=== PATIENT | female | born 1940 | race Caucasian/White ===

== ENCOUNTER 2020-02-17 16:18 | Emergency (ER) | payer MEDICARE, OTHER, SELFPAY ==
[2020-02-17 16:26] VITALS: BP 184/83; PULSE 67; RESP 17; TEMP 36.3; O2SAT 97; BMI 34.6
--- NOTE | 2020-02-17 16:27 | XRR_ITS ---
PROCEDURE INFORMATION: Exam: XR Chest, 1 View Exam date and time: 02/17/2020 4:44 PM Age: 79 years old Clinical indication: Chest pain; Type not specified; Additional info: Cp TECHNIQUE: Imaging protocol: XR of the chest Views: 1 view. COMPARISON: No relevant prior studies available. FINDINGS: Lungs: There is some mild scarring or subsegmental atelectasis at the right lung base and in the left mid lung. Pleural space: Unremarkable. No pleural effusion. No pneumothorax. Heart/Mediastinum: There is mild cardiomegaly. Sternotomy wires and mediastinal surgical clips are present, consistent with previous coronary arterial bypass grafting. Bones/joints: Unremarkable. XR/XR chest 1V portable [id number] IMPRESSION: 1. Mild cardiomegaly 2. Minimal atelectasis or scarring. 3. No acute infiltrate
--- NOTE | 2020-02-17 16:28 | ECG_ITS ---
[facility] Test Date: 2020-02-17 Pat Name: Indira Guzman Department: Room: Gender: Female Fx Artist: : 1940 Requested By: Vicki De La Garza Order Number: [id number] Lerma MD: Francia Bloom M.D. Measurements Intervals [place] Rate: 63 P: 44 [place]: 159 QRS: 11 QRSD: 127 T: 114 QT: 430 QTc: 443 Interpretive Statements SINUS RHYTHM POSSIBLE LEFT ATRIAL ENLARGEMENT [-0.1mV P WAVE IN V1/V2] LEFT BUNDLE BRANCH BLOCK [120+ ms QRS DURATION, 80+ ms Q/S IN V1/V2, 85+ ms R IN I/aVL/V5/V6] Compared to ECG 10/02/2018 04:26:22 No significant changes Electronically Signed On 02-17-2020 18:25:11 CDT by Francia Bloom M.D. [id number]
[2020-02-17] MEDS: aspirin 325 mg Tablet PO (16:52)
[2020-02-17] MEDS: nitroglycerin 0.4 mg sublingual Tablet SUBLINGUAL (17:00)
[2020-02-17 17:03] LABS: Basophils # 0.1 10^3/uL (0.0-0.1); Basophils % 0.8 %; Eosinophils # 0.2 10^3/uL (0.0-0.8); Eosinophils % 2.4 %; Hematocrit 42.1 % (37.0-47.0); Hemoglobin 13.6 g/dL (11.5-15.3); Lymphocytes # 2.1 10^3/uL (0.8-4.8); Lymphocytes % 24.8 %; Mean Corpuscular HGB Conc 32.3 g/dL (30.0-36.0); Mean Corpuscular Hemoglobin 30.8 pg (28.0-34.0); Mean Corpuscular Volume 95.2 fL (81-99); Mean Platelet Volume 10.1 fL (7.4-10.4); Monocytes # 0.7 10^3/uL (0.2-0.9); Monocytes % 8.1 %; Neutrophils # 5.3 10^3/uL (1.8-7.7); Neutrophils % 63.5 %; Nucleated Red Blood Cells % 0 %; Platelet Count 224 10^3/cmm (130-400); Red Blood Count 4.42 10^6/uL (4.1-5.3); Red Cell Distribution Width 13.3 % (12.1-15.1); White Blood Count 8.3 10^3/uL (4.0-10.0)
[2020-02-17 17:12] LABS: INR 0.92 (0.8-1.2)
[2020-02-17 17:23] LABS: Alanine Aminotransferase 10 U/L (0-33); Albumin Level 4.8 g/dL (3.5-5.2); Alkaline Phosphatase 76 IU/L (35-105); Anion Gap 17.3 (5-19); Aspartate Amino Transferase 20 U/L (0-32); Blood Urea Nitrogen 17 mg/dL (8-23); Calcium 10.3 mg/dL (8.5-10.5); Carbon Dioxide 24 mmol/L (22-29); Chloride 102 mmol/L (98-107); Globulin 2.2 g/dL (1.3-4.6); Glucose 103 mg/dL (65-115); Lipase 33 U/L (13-60); Magnesium 1.9 mg/dL (1.7-2.3); Osmolality Calculated 285 mOsm/kg (285-295); Potassium 4.3 mmol/L (3.5-5.1); Sodium 139 mmol/L (136-145); Total Bilirubin 0.8 mg/dL (0.15-1.2)
[2020-02-17 17:24] LABS: Troponin(5th) Baseline 7 ng/L (0-10)
[2020-02-17 17:56] LABS: Bilirubin Urine Neg (NEGATIVE); Blood Urine Neg (Negative); Glucose Urine UA Norm (Normal); Ketones Urine Negative (Negative); Leukocyte Esterase Urine Negative (Negative); Nitrate Urine Negative (Negative); Protein Urine Neg (Negative); Specific Gravity, Urine 1.005 (1.005-1.030); Urine Appearance Clear (CLEAR); Urine Color Yellow (Yellow); Urobilinogen Urine Neg (Negative); pH Urine 7 (5-7)
[2020-02-17 17:57] LABS: Add Urine Culture? No; Bacteria Urine TRACE; Squamous Epithelial Cell Urine 0-4 (0-5)
--- NOTE | 2020-02-17 17:57 | ED_ITS ---
HPI - Chest Pain General: Chief Complaint: Chest Pain Stated Complaint: chest heaviness Time Seen by Provider: 02/17/20 16:26 Source: patient and family Mode of arrival: ambulatory Limitations: no limitations History of Present Illness: HPI narrative: Ms. Guzman is a nice 79-year-old female who comes in complaining of palpitations and neck discomfort. She states her pain is been at its worst a 5 or 6 out of 10 and currently she is a 4 out of 10. Patient states that she has having palpitations that make her feel dizzy. She does not check her heart rate with this to see how fast her heart rate is with the palpitations. The patient has not been syncopal or near syncopal. Patient states that she feels very anxious and she thinks this is all just due to anxiety. She denies any chest pain only the right-sided neck pain. Denies any nausea or vomiting, diaphoresis, shortness of breath, radiation of her pain or any other symptoms. Her symptoms are intermittent lasting a very short amount of time. Associated symptoms: Reports palpitations; Deny abdominal pain, diaphoresis, dyspnea, fever(s), nausea or vomiting Review of Systems Const: Denies: fever(s), chills, body aches, fatigue, malaise or diaphoresis Eyes: Denies: change in vision, blurry vision, blind spots, photophobia, eye discharge or eye redness ENMT: Denies: throat pain, odynophagia, hoarseness, swelling of lips/tongue, oral sores, ear or mastoid pain, ear discharge, change in hearing or nasal discharge Card: Reports: palpitations; Denies: chest pain, irregular heart rhythm, edema, lightheadedness, pre-syncope, dyspnea on exertion or orthopnea Resp: Denies: dyspnea, productive cough, non-productive cough, wheezing, hemoptysis or chest congestion GI: Denies: abdominal pain, nausea, vomiting, hematemesis, coffee ground emesis, heartburn, diarrhea, constipation, GI cramping, hematochezia or melena : Denies: flank pain, dysuria, urinary frequency, urinary urgency or hematuria Musc: Reports: neck pain; Denies: back pain, extremity pain, extremity swelling, joint pain, joint swelling, joint redness, joint warmth or joint stiffness Skin/Breast: Denies: rash, pruritus, erythema, skin tenderness or jaundice Neuro: Denies: headache(s), numbness in extremities, weakness in extremities, sensory changes, lack of coordination, difficulty walking, dizziness, vertigo, confusion, Slurred speech present or seizure-like activity Psych: Reports: anxiety Raghu/Lymph: Denies: easy bruising, easy bleeding, petechiae, purpura or enlarged lymph nodes All/Imm: Denies: urticaria, throat swelling, tongue swelling, facial swelling or acute wheezing PFSH ED PFSH: Medical History Anxiety Congestive heart failure Coronary artery disease DM type 2 (diabetes mellitus, type 2) GERD (gastroesophageal reflux disease) Gout Hyperlipidemia Hypertension Hypothyroidism Surgical History Hx of CABG Social History Smoking and tobacco status: never smoked Physical Exam Const: COMMON NORMALS: no acute distress, patient oriented x3, no limitations, healthy appearing and well nourished GENERAL APPEARANCE: cooperative, well kempt and well developed HENMT: COMMON NORMALS: normocephalic, atraumatic, external ears normal, EAC's normal and Normal external nose present HEAD & SCALP: normal to inspection, normocephalic and atraumatic FACE & SINUS: normal facial exam and face symmetric NOSE: Normal external nose present and Normal nares present EXTERNAL EAR: Yes external ears normal EXTERNAL AUDITORY CANAL: EAC's normal MOUTH: Normal oral and palatal mucosa present, lip normal and tongue normal Eye: COMMON NORMALS: Equal, round and reactive pupils present and conjunctivae normal GENERAL EYE: appearance normal, both eyes and all related structures ALIGNMENT: Yes alignment normal PERIORBITAL: periorbital findings normal EYELID: eyelids normal CONJUNCTIVA: Yes conjunctivae normal SCLERA: sclerae normal PUPIL: Yes Equal, round and reactive pupils present Neck/C-Spine: COMMON NORMALS: full ROM, no lymphadenopathy, supple, no meningeal signs and no JVD GENERAL: Yes normal visual inspection and Yes trachea midline Chest: COMMONS NORMALS: normal inspection of the chest and normal palpation of entire chest wall Resp: COMMON NORMALS: normal respiratory effort, No retractions and No use of accessory muscles EFFORT & INSPECTION: Yes able to speak in complete sentences and Yes symmetric chest movement AUSCULTATION: no crackles, no rales, no rhonchi and no wheezes Cardio: COMMON NORMALS: no JVD, regular rate, regular rhythm, S1 normal heart sound present and S2 normal heart sound present RATE: regular rate RHYTHM: regular rhythm HEART SOUNDS: S1 normal heart sound present, S2 normal heart sound present, no click, no gallops, no murmurs, no rubs and abnormal split S2 GI: COMMON NORMALS: Soft to palpation and No hepatosplenomegaly present PALPATION: Yes Soft to palpation, No Tenderness to palpation present (GI), No Guarding due to palpation present (GI), No Rigid due to palpation, Yes No hep atosplenomegaly present, No Hernia present, No Palpable mass present and No Pulsatile mass present : COMMON NORMALS: Yes no CVA tenderness BLADDER/KIDNEY EXAM: Yes no CVA tenderness EXTERNAL FEMALE EXAM: No Hernia present Back/Pelvis: COMMON NORMALS: no CVA tenderness, thoracic and lumbar spine normal to inspection, no thoracic nor lumbar tenderness and thoraco-lumbar ROM normal Extremity: COMMON NORMALS: normal to inspection, full ROM, capillary refill normal, no joint enlargement, no clubbing, cyanosis or edema and no calf tenderness Neuro: COMMON NORMALS: patient oriented x3, CN's II-XII intact bilaterally, moves all extremities, no focal motor deficits and no sensory deficits noted MENINGEAL SIGNS: Yes no meningeal signs SPEECH: speech normal Psych: COMMON NORMALS: mental status grossly normal, Normal thought process present, cooperative, normal affect, speech normal and activity/motor behavior normal APPEARANCE: Yes well kempt SPEECH: Yes normal speech THOUGHT PROCESS: Normal thought process present Skin: COMMON NORMALS: no rashes or lesions noted, turgor normal, no jaundice, no petechiae and no mottling GENERAL SKIN EXAM: no rashes or lesions noted and turgor normal Course 2 Vital Signs: Vital signs: Vital Signs Temperature 97.4 F L 02/17/20 16:26 Pulse Rate 67 02/17/20 16:26 Respiratory Rate 17 02/17/20 16:26 Blood Pressure 184/83 02/17/20 16:26 Pulse Oximetry 97 02/17/20 16:26 MDM - Chest Pain MDM Narrative: Medical decision making narrative: Mrs. Brady is a nice 79-year-old female who comes in complaining of primarily right neck discomfort and palpitations. She has described palpitations here but no evidence of any arrhythmia is seen on her surveillance system monitor. Her right neck pain could be an anginal equivalent the patient does not appear to have had any significant cardiac work-up since a negative stress test in 2013. I have recommended and offered to admit her to the hospital for stress testing but she declines. She thinks her symptoms are secondary to anxiety. I have informed her that although this is possible it would be best to perform a stress test after a formal cardiac rule out but she again refuses. I have discussed her decision with her and her family and we have discussed this at length but despite all my trying to convince her to stay she refuses. She wants to follow-up with Dr. Romo on but she does agree to return should her symptoms return or she develop any new symptoms that are concerning. The patient was warned but she was also welcome to return. Patient had a heart score of 5 and was not low risk per the EDACS algorithm. Lab Data: Attestation: I reviewed the patient's lab results. Labs: Lab Results 02/17/20 02/17/20 02/17/20 Range/Units 16:43 16:43 16:43 WBC 8.3 (4.0-10.0) 10^3/ uL RBC 4.42 (4.1-5.3) 10^6/u L Hgb 13.6 (11.5-15.3) g/dL Hct 42.1 (37.0-47.0) % MCV 95.2 (81-99) fL MCH 30.8 (28.0-34.0) pg MCHC 32.3 (30.0-36.0) g/dL RDW 13.3 (12.1-15.1) % Plt Count 224 (130-400) 10^3/c mm MPV 10.1 (7.4-10.4) fL Neut % (Auto) 63.5 % Lymph % (Auto) 24.8 % [place] % (Auto) 8.1 % Eos % (Auto) 2.4 % Baso % (Auto) 0.8 % Neut # (Auto) 5.3 (1.8-7.7) 10^3/u L Lymph # (Auto) 2.1 (0.8-4.8) 10^3/u L [place] # (Auto) 0.7 (0.2-0.9) 10^3/u L Eos # (Auto) 0.2 (0.0-0.8) 10^3/u L Baso # (Auto) 0.1 (0.0-0.1) 10^3/u L Nucleated RBC % (a uto) 0 % Nucleated RBCs # 0.0 /100WBC PT 12.60 (10.5-13.3) SECO NDS INR 0.92 (0.8-1.2) Sodium 139 (136-145) mmol/L Potassium 4.3 (3.5-5.1) mmol/L Chloride 102 (98-107) mmol/L Carbon Dioxide 24 (22-29) mmol/L Anion Gap 17.3 (5-19) BUN 17 (8-23) mg/dL Creatinine 0.9 (0.5-0.9) mg/dL Glucose 103 (65-115) mg/dL Calculated Osmolal ity 285 (285-295) mOsm/k g Calcium 10.3 (8.5-10.5) mg/dL Magnesium 1.9 (1.7-2.3) mg/dL Total Bilirubin 0.8 (0.15-1.2) mg/dL AST 20 (0-32) U/L ALT 10 (0-33) U/L Alkaline Phosphata se 76 (35-105) IU/L Troponin T Baselin e (0-10) ng/L Troponin T 120 Min [place] (0-10) ng/L Total Protein 7.0 (6.6-8.7) g/dL Albumin 4.8 (3.5-5.2) g/dL Globulin 2.2 (1.3-4.6) g/dL Lipase 33 (13-60) U/L Urine Color (Yellow) Urine Appearance (CLEAR) Urine pH (5-7) Ur Specific Gravit y (1.005-1.030) Urine Protein (Negative) Urine Glucose (UA) (Normal) Urine Ketones (Negative) Urine Blood (Negative) Urine Nitrate (Negative) Urine Bilirubin (NEGATIVE) Urine Urobilinogen (Negative) mg/dL Ur Leukocyte Karen ase (Negative) Urine RBC (0-2) /hpf Urine WBC (0-5) /hpf Ur Squamous Epith Cells (0-5) Urine Bacteria (NONE) 02/17/20 02/17/20 02/17/20 Range/Units 16:43 17:07 18:29 WBC (4.0-10.0) 10^3/ uL RBC (4.1-5.3) 10^6/u L Hgb (11.5-15.3) g/dL Hct (37.0-47.0) % MCV (81-99) fL MCH (28.0-34.0) pg MCHC (30.0-36.0) g/dL RDW (12.1-15.1) % Plt Count (130-400) 10^3/c mm MPV (7.4-10.4) fL Neut % (Auto) % Lymph % (Auto) % [place] % (Auto) % Eos % (Auto) % Baso % (Auto) % Neut # (Auto) (1.8-7.7) 10^3/u L Lymph # (Auto) (0.8-4.8) 10^3/u L [place] # (Auto) (0.2-0.9) 10^3/u L Eos # (Auto) (0.0-0.8) 10^3/u L Baso # (Auto) (0.0-0.1) 10^3/u L Nucleated RBC % (a uto) % Nucleated RBCs # /100WBC PT (10.5-13.3) SECO NDS INR (0.8-1.2) Sodium (136-145) mmol/L Potassium (3.5-5.1) mmol/L Chloride (98-107) mmol/L Carbon Dioxide (22-29) mmol/L Anion Gap (5-19) BUN (8-23) mg/dL Creatinine (0.5-0.9) mg/dL Glucose (65-115) mg/dL Calculated Osmolal ity (285-295) mOsm/k g Calcium (8.5-10.5) mg/dL Magnesium (1.7-2.3) mg/dL Total Bilirubin (0.15-1.2) mg/dL AST (0-32) U/L ALT (0-33) U/L Alkaline Phosphata se (35-105) IU/L Troponin T Baselin e 7 (0-10) ng/L Troponin T 120 Min [place] 7.03 (0-10) ng/L Total Protein (6.6-8.7) g/dL Albumin (3.5-5.2) g/dL Globulin (1.3-4.6) g/dL Lipase (13-60) U/L Urine Color Yellow (Yellow) Urine Appearance Clear (CLEAR) Urine pH 7 (5-7) Ur Specific Gravit y 1.005 (1.005-1.030) Urine Protein Neg (Negative) Urine Glucose (UA) Norm (Normal) Urine Ketones Negative (Negative) Urine Blood Neg (Negative) Urine Nitrate Negative (Negative) Urine Bilirubin Neg (NEGATIVE) Urine Urobilinogen Neg (Negative) mg/dL Ur Leukocyte Karen ase Negative (Negative) Urine RBC None (0-2) /hpf Urine WBC None (0-5) /hpf Ur Squamous Epith Cells 0-4 H (0-5) Urine Bacteria Trace (NONE) Imaging Data^: CXR: Attestation: I personally reviewed and interpreted this imaging study as follows: My impression: No acute cardiopulmonary findings. EKG Data^: EKG 1: Attestation: I personally reviewed and interpreted this EKG as follows: EKG interpretation date: 02/17/20 EKG interpretation time: 16:36 Interpretation: Normal sinus rhythm at 63 beats a minute, left bundle branch block, unchanged from previous. Normal QTC. EKG 2: Attestation: I personally reviewed and interpreted this EKG as follows: EKG interpretation date: 02/17/20 EKG interpretation time: 18:05 Interpretation: Normal sinus rhythm at 61 beats a minute, left bundle branch block, same as previous. Discharge Plan Discharge Patient Disposition: Home, Self-Care Clinical Impression: Chest pain Qualifiers: Chest pain type: unspecified Qualified Code(s): R07.9 - Chest pain, unspecified Condition: Stable Prescriptions: No Action furosemide 40 mg tablet 40 mg PO DAILY RF: 0 trazodone 50 mg tablet 50 mg PO BEDTIME RF: 0 lovastatin 40 mg tablet 40 mg PO BEDTIME RF: 0 valsartan 80 mg tablet 80 mg PO BID RF: 0 alprazolam 0.5 mg tablet 0.5 mg PO TID RF: 0 potassium chloride 20 mEq tablet,ER particles/crystals 20 meq PO DAILY RF: 0 amlodipine 10 mg tablet 10 mg PO DAILY RF: 0 pantoprazole 40 mg tablet,delayed release (DR/EC) 40 mg PO DAILY RF: 0 allopurinol 300 mg tablet 300 mg PO DAILY RF: 0 levothyroxine 112 mcg tablet 112 mcg PO DAILY RF: 0 Vitamin B-12 250 mcg Tablet 250 mcg PO DAILY RF: 0 metoprolol succinate 100 mg tablet extended release 24 hr 100 mg PO BID RF: 0 Discharge Orders: Discharge Order (Routine); Ordered 02/17/20 Ordered By: Vicki Arriaga Referrals: Pool Romo MD [Physician] - (Follow-up with Dr. Romo on Monday as scheduled.) Ish Dumont MD [Primary Care Provider] - 1-3 days Discharge Diet: Low Cholesterol Discharge Activity: Increase activity as tolerated Patient Instructions: Chest Pain (ED) Activity Restrictions/Additional Instructions: You're leaving AGAINST MEDICAL ADVICE and are at risk for or severe permanent disability by doing so. You are more than welcome to return at any time for recheck and for further evaluation and care suture change you change your mind. You have been offered and I have recommended you come into the [facility] for further evaluation and care but you have declined. Of course you are welcome to return anytime should you change your mind, your symptoms return, you develop any new symptoms or you simply change your mind. Be certain to follow- up with Dr. Romo on Monday as scheduled. Follow-up with Dr. Dumont as well for recheck. 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
[2020-02-17] MEDS: ondansetron 2 mg/ML SDV 2 mL 4 MG IVP (17:59)
--- NOTE | 2020-02-17 18:28 | ECG_ITS ---
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 Measurements Intervals [place] Rate: 61 P: 45 [place]: 157 QRS: 6 QRSD: 131 T: 115 QT: 456 QTc: 459 Interpretive Statements SINUS RHYTHM POSSIBLE LEFT ATRIAL ENLARGEMENT [-0.1mV P WAVE IN V1/V2] LEFT BUNDLE BRANCH BLOCK [120+ ms QRS DURATION, 80+ ms Q/S IN V1/V2, 85+ ms R IN I/aVL/V5/V6] Compared to ECG 02/17/2020 16:36:37 No significant changes Electronically Signed On 02-17-2020 18:32:16 CDT by Francia Bloom M.D. [id number]
[2020-02-17 19:11] LABS: Troponin 5 2HR 7.03 ng/L (0-10); Troponin 5 2HR Delta 0.03 ABS# (0-10)
== END 2020-02-17 20:23 | disposition home or self-care (01) ==
PROVIDERS: Emergency Provider Emergency Medicine; PCP Family Medicine
DX: R07.9 Chest pain, unspecified (principal); I11.0 Hypertensive heart disease with heart failure; I50.9 Heart failure, unspecified; I25.10 Atherosclerotic heart disease of native coronary artery without angina pectoris; E11.9 Type 2 diabetes mellitus without complications; E78.5 Hyperlipidemia, unspecified; Z95.1 Presence of aortocoronary bypass graft
CPT/HCPCS: 12345; 36415; 71045; 80053; 81001; 83690; 83735; 84484; 85025; 85610; 93005; 96375; 99282; 99284; J2405

== ENCOUNTER 2020-09-23 10:26 | Outpatient (CLI) | payer MEDICARE, OTHER, SELFPAY ==
--- NOTE | 2020-09-23 10:28 | MM_ITS ---
WS: [id number] BILATERAL SCREENING DIGITAL MAMMOGRAM WITH CAD HISTORY: SCREENING COMPARISON: 11/01/2018 and 07/29/2015 Bilateral CC and MLO views submitted. Computer aided detection analyzed. Breast composition: There are scattered areas of fibroglandular density. No suspicious masses, microc alcifications or architectural distortion. Vascular calcifications and rodlike calcifications are pre sent in each breast. Mild progression since 2014. IMPRESSION: MM/[place] [id number] BI-RADS: 2-Benign FOLLOW UP: 1 Year Follow-up
== END 2020-09-23 10:27 | disposition home or self-care (01) ==
LOC: RADSHAW 10:27
PROVIDERS: PCP Family Medicine; Visit Provider Family Medicine
DX: Z12.31 Encounter for screening mammogram for malignant neoplasm of breast (principal)
CPT/HCPCS: 77067

== ENCOUNTER → 2022-01-03 12:27 | Outpatient (BNVA) | payer MEDICARE, OTHER, SELFPAY | PROVIDERS: PCP Family Medicine; Visit Provider Family Medicine | DX: R10.9 Unspecified abdominal pain (principal); Z13.220 Encounter for screening for lipoid disorders; E03.9 Hypothyroidism, unspecified; R10.11 Right upper quadrant pain; E11.9 Type 2 diabetes mellitus without complications | CPT/HCPCS: 80053; 80061; 83036; 83690; 84439; 84443; 85025; 86140 ==

== ENCOUNTER 2022-01-06 17:19 | Emergency (ER) | payer MEDICARE, OTHER, SELFPAY ==
[2022-01-06 17:52] VITALS: BP 177/85; PULSE 63; RESP 16; TEMP 36.5; O2SAT 96; BMI 37.4
--- NOTE | 2022-01-06 18:54 | CTR_ITS ---
PROCEDURE INFORMATION: Exam: CT Abdomen And Pelvis With Contrast Exam date and time: 01/06/2022 9:07 PM Age: 81 years old Clinical indication: Abdominal pain; Prior surgery; Surgery date: 6+ months; Surgery type: Open heart; Patient HX: C/O of epigastric pain. Sent by pcp for abnormal gb ultrasound. ; Additional info: Abd pain TECHNIQUE: Imaging protocol: Computed tomography of the abdomen and pelvis with contrast. Radiation optimization: All CT scans at this facility use at least one of these dose optimization techniques: automated exposure control; mA and/or kV adjustment per patient size (includes targeted exams where dose is matched to clinical indication); or iterative reconstruction. Contrast material: OMNI 300; Contrast volume: 50 ml; Contrast route: INTRAVENOUS (IV); COMPARISON: US abdomen limited [id number] 01/06/2022 10:25 AM RADIATION DOSE METRICS: Total DLP (mGy-cm): 1455.26 FINDINGS: Heart: Severe calcification in the mitral valve and/or mitral valve annulus. Diaphragm: Small intrathoracic hiatal hernia. Liver: Calcified hepatic granulomas. Gallbladder and bile ducts: Enlarged 8.9 x 4.7 cm gallbladder. Pancreas: Normal. No ductal dilation. Spleen: Calcified splenic granulomas. Adrenal glands: Normal. No mass. Kidneys and ureters: Normal. No hydronephrosis. Stomach and bowel: Mild colonic diverticulosis. Appendix: No evidence of appendicitis. Intraperitoneal space: Unremarkable. No free air. No significant fluid collection. Vasculature: Calcification of the abdominal aorta and/or iliac arteries consistent with atherosclerotic vessel disease. Lymph nodes: Unremarkable. No enlarged lymph nodes. Urinary bladder: Unremarkable as visualized. Reproductive: Status post hysterectomy. Bones/joints: Grade 1 anterior non-spondylitic spondylolisthesis of L4 on L5 with central spinal stenosis and prominent facet degenerative changes. Severe multilevel spine degenerative changes including degenerative disc disease, spondylosis and facet degenerative changes. Previous sternotomy. Soft tissues: Unremarkable. CT/CT abdomen pelvis w con* [id number] IMPRESSION: Enlarged 8.9 x 4.7 cm gallbladder.
[2022-01-06 21:01] LABS: Basophils # 0.1 10^3/uL (0.0-0.1); Basophils % 0.8 %; Eosinophils # 0.2 10^3/uL (0.0-0.8); Eosinophils % 1.7 %; Hematocrit 47.9 % (37.0-47.0); Hemoglobin 15.6 g/dL (11.5-15.3); Lymphocytes # 3.1 10^3/uL (0.8-4.8); Lymphocytes % 31.8 %; Mean Corpuscular HGB Conc 32.6 g/dL (30.0-36.0); Mean Corpuscular Hemoglobin 30.6 pg (28.0-34.0); Mean Corpuscular Volume 94.1 fl (81-99); Mean Platelet Volume 10.4 fL (7.4-10.4); Monocytes # 0.8 10^3/uL (0.2-0.9); Monocytes % 8.6 %; Neutrophils # 5.56 10^3/uL (1.8-7.7); Neutrophils % 56.6 %; Nucleated Red Blood Cells % 0 %; Platelet Count 266 10^3/cmm (130-400); Red Blood Count 5.09 10^6/uL (4.1-5.3); White Blood Count 9.8 10^3/uL (4.0-10.0)
[2022-01-06] MEDS: iohexol 300 mg/mL 100 mL Btl IV (21:10)
--- NOTE | 2022-01-06 21:13 | ED_ITS ---
HPI - Weakness General: Chief complaint: Weakness Stated complaint: Gallbladder issue cant keep anything down Time Seen by Provider: 01/06/22 20:49 Source: patient and family Mode of arrival: ambulatory Limitations: no limitations History of Present Illness: This patient apparently was referred to the e mergency department by her regular physician. She apparently developed some loose stool symptoms approximately a week or so ago. She states that she was initially seen by her doctor earlier this week and during his examination she had some tenderness in her right upper abdomen. He subsequently did a work-up to include laboratories and a gallbladder ultrasound. The gallbladder ultrasound showed that she had distended gallbladder but no other significant pathology at that time. She has subsequently continued to have some loose stools occasional vomiting but is somewhat better today and that she has been able to tolerate her medication with water today. She still having some loose stool but improving. She usually having no abdominal pain per se just occasional cramping. She does relate that she is been told she had a history of irritable bowel for many years. She has had a prior tubal ligation as well as a total abdominal hysterectomy with bilateral salpingo-oophorectomy in the past. She has not had any recent travel, recent exposure to infectious disease, recent antibiotic use. She states she is still passing urine. She does have a history of coronary disease and had a bypass 25 years ago but is had no complaint of chest pain or shortness of breath. No cough or fever. She is immunized against COVID-19. She was sent here because of concern about possible dehydration and whether or not she had any other intra-abdominal pathology. Associated symptoms: Reports vomiting; Denies chest pain, chills, melena, dysuria, easy bruising, fever(s), headache(s) or syncope Review of Systems Const: Denies: fever(s), chills or body aches Eyes: Denies: change in vision ENMT: Denies: throat pain, odynophagia, change in hearing or nasal congestion Card: Denies: chest pain, palpitations, irregular heart rhythm, edema, syncope or pre-syncope Resp: Denies: dyspnea, productive cough, non-productive cough, wheezing or stridor GI: Reports: vomiting, GI cramping and change in stool character; Denies: coffee ground emesis, hematochezia, melena or white/light colored stool : Denies: flank pain, difficulty voiding, dysuria, urinary frequency or urinary urgency Musc: Denies: neck pain, back pain, extremity pain or extremity swelling Skin/Breast: Denies: rash or pruritus Neuro: Denies: headache(s), numbness in extremities or weakness in extremities Psych: Denies: anxiety, depression or mood swings Endo: Denies: polyuria, polydipsia or tired all the time Raghu/Lymph: Denies: easy bruising or easy bleeding All/Imm: Denies: urticaria PFSH ED PFSH: Medical History (Updated 01/06/22 @ 23:14 by Larry Guzman DO) Anxiety Congestive heart failure Coronary artery disease DM type 2 (diabetes mellitus, type 2) GERD (gastroesophageal reflux disease) Gout Hyperlipidemia Hypertension Hypothyroidism Left bundle branch block Mild aortic stenosis Sleep apnea Surgical History Hx of CABG Social History Smoking and tobacco status: never smoked Physical Exam Narrative: EXAM NARRATIVE: She is alert and cooperative makes good eye contact. Speech is goal-directed and fluent. Const: COMMON NORMALS: no acute distress, average body habitus, patient oriented x3 and healthy appearing NUTRITIONAL APPEARANCE: overweight HENMT: COMMON NORMALS: normocephalic, atraumatic, Normal nasal mucous membranes and turbinates present and moist oral mucous membranes HEAD & SCALP: normocephalic and atraumatic NOSE: Normal nasal mucous membranes and turbinates present Eye: COMMON NORMALS: Equal, round and reactive pupils present, EOMs intact bilaterally, conjunctivae normal and no scleral icterus CONJUNCTIVA: Yes conjunctivae normal PUPIL: Yes Equal, round and reactive pupils present Neck/C-Spine: COMMON NORMALS: full ROM, no lymphadenopathy, supple and No carotid bruits Chest: COMMONS NORMALS: normal inspection of the chest Resp: COMMON NORMALS: normal respiratory effort, No retractions, No use of accessory muscles and clear to auscultation bilaterally EFFORT & INSPECTION: Yes able to speak in complete sentences AUSCULTATION: clear to auscultation bilaterally Cardio: COMMON NORMALS: regular rate, regular rhythm, No murmurs present (Cardio) and Peripheral pulses 2+ throughout RATE: regular rate RHYTHM: regular rhythm PERIPHERAL PULSES: Peripheral pulses 2+ throughout GI: COMMON NORMALS: Normal to inspection, nondistended, normoactive bowel sounds present, Soft to palpation, non-tender, No hepatosplenomegaly present, no masses and no bruits PALPATION: Yes Soft to palpation and Yes No hepatosplenomegaly present : COMMON NORMALS: Yes no CVA tenderness BLADDER/KIDNEY EXAM: Yes no CVA tenderness Back/Pelvis: COMMON NORMALS: no CVA tenderness, thoracic and lumbar spine normal to inspection, no thoracic nor lumbar tenderness and straight leg raise negative bilaterally Extremity: COMMON NORMALS: normal to inspection, full ROM, capillary refill normal, no joint enlargement, no calf tenderness and no pedal edema Neuro: COMMON NORMALS: patient oriented x3, moves all extremities, no focal motor deficits and no sensory deficits noted Psych: COMMON NORMALS: mental status grossly normal, normal affect and speech normal SPEECH: Yes normal speech Skin: COMMON NORMALS: no rashes or lesions noted, no wounds, turgor normal and no jaundice GENERAL SKIN EXAM: no rashes or lesions noted and turgor normal Course Reevaluation(s): Reevaluation #1: Patient's remained comfortable without any stools or emesis while in the emergency department. She has had some small amounts of fluid and she is eating some crackers without any difficulty. Her CT scan is reassuring although she does have a fluid-filled gallbladder but no evidence of stones, pericholecystic fluid, biliary tract anatomy otherwise. Her chemistries are still pending but apparently she had chemistries drawn earlier this week that were also normal. Certainly do not have any evidence of acute bowel obstruction or any other acute intra-abdominal pathology such as cholecystitis etc. at this time. She may be having a dysfunctional gallbladder or just may be fluid-filled because she is not been eating over the past couple of days. Will await her lipase and chemistries and if those are normal I think it is reasonable to discharge her to an outpatient follow-up. She will likely need a HIDA scan to assess her gallbla dder function but that cannot be done in the emergency department this evening and is commonly in almost exclusively done as an outpatient order. I discussed this in detail with the patient and her daughter who voiced understanding. No indication for any additional therapy at this time. Time: 22:58 Vital Signs: Vital signs: Vital Signs Temperature 97.7 F 01/06/22 17:52 Pulse Rate 69 05/12/22 22:33 Respiratory Rate 18 01/06/22 22:33 Blood Pressure 160/84 01/06/22 22:33 Pulse Oximetry 95 01/06/22 22:33 MDM - Weakness Medical Decision Making Patient has had over a weeks worth of intermittent loose stools as well as some vomiting early on in her condition who has been evaluated by her primary care doctor and had an gallbladder ultrasound was referred here for further imaging and repeat evaluation. Her history does not suggest anything specific in her clinical examination revealed a stable patient without any evidence of rebound guarding or other suggestion of a surgical abdomen. EKG was reassuring, and imaging was also reassuring and that that did not display anything other than a fluid-filled gallbladder with no evidence of biliary tract disease otherwise cholecystitis etc. Her laboratories are also reassuring. She is stable at this time and received IV fluids as well as taking oral fluids and crackers. She desires to be discharged for outpatient follow-up and I think that is reasonable given her current clinical picture. She will will likely need a HIDA scan as an outpatient to evaluate gallbladder function but is stable at this time to proceed with that plan. Return precautions were also discussed with her and daughter. Medical Records I reviewed the patient's medical records. Lab Data I reviewed the patient's lab results. : 01/06/22 20:53 01/06/22 22:45 Radiology Impressions Abdomen/Pelvis CT 01/06/22 18:54 IMPRESSION: Enlarged 8.9 x 4.7 cm gallbladder. Laboratory Results WBC 9.8 10^3/uL (4.0-10.0) 01/06/22 20:53 RBC 5.09 10^6/uL (4.1-5.3) 01/06/22 20:53 Hgb 15.6 g/dL (11.5-15.3) H 01/06/22 20:53 Hct 47.9 % (37.0-47.0) H 01/06/22 20:53 MCV 94.1 fl (81-99) 01/06/22 20:53 MCH 30.6 pg (28.0-34.0) 01/06/22 20:53 MCHC 32.6 g/dL (30.0-36.0) 01/06/22 20:53 RDW 14.0 % (12.1-15.1) 01/06/22 20:53 Plt Count 266 10^3/cmm (130-400) 01/06/22 20:53 MPV 10.4 fL (7.4-10.4) 01/06/22 20:53 Neut % (Auto) 56.6 % 01/06/22 20:53 Lymph % (Auto) 31.8 % 01/06/22 20:53 [place] % (Auto) 8.6 % 01/06/22 20:53 Eos % (Auto) 1.7 % 01/06/22 20:53 Baso % (Auto) 0.8 % 01/06/22 20:53 Neut # (Auto) 5.56 10^3/uL (1.8-7.7) 01/06/22 20:53 Lymph # (Auto) 3.1 10^3/uL (0.8-4.8) 01/06/22 20:53 [place] # (Auto) 0.8 10^3/uL (0.2-0.9) 01/06/22 20:53 Eos # (Auto) 0.2 10^3/uL (0.0-0.8) 01/06/22 20:53 Baso # (Auto) 0.1 10^3/uL (0.0-0.1) 01/06/22 20:53 Nucleated RBC % (auto) 0 % 01/06/22 20: Nucleated RBCs # 0.0 /100WBC 01/06/22 20:53 Sodium 140 mmol/L (136-145) 01/06/22 22:45 Potassium 3.7 mmol/L (3.5-5.1) 01/06/22 22:45 Chloride 107 mmol/L (98-107) 01/06/22 22:45 Carbon Dioxide 24 mmol/L (22-29) 01/06/22 22:45 Anion Gap 12.7 (5-19) 01/06/22 22:45 BUN 13 mg/dL (8-23) 01/06/22 22:45 Creatinine 0.6 mg/dL (0.5-0.9) 01/06/22 22:45 GFR Calculation Not Reportable 01/06/22 22:45 Glucose 105 mg/dL (65-115) 01/06/22 22:45 Calculated Osmolality 290 mOsm/kg (285-295) 01/06/22 22:45 Calcium 8.6 mg/dL (8.5-10.5) 01/06/22 22:45 Total Bilirubin 1.0 mg/dL (0.15-1.2) 01/06/22 22:45 AST 17 U/L (0-32) 01/06/22 22:45 ALT 10 U/L (0-33) 01/06/22 22:45 Alkaline Phosphatase 59 IU/L (35-105) 01/06/22 22:45 Total Protein Cancelled 01/06/22 20:53 Albumin 3.5 g/dL (3.5-5.2) 01/06/22 22:45 Globulin 2.2 g/dL (1.3-4.6) 01/06/22 22:45 Lipase 29 U/L (13-60) 01/06/22 22:45 EKG Data EKG 1: EKG interpretation time: 21:38 Interpretation: Resting EKG at this ER visit shows ventricular rate of 57 bpm consistent with sinus bradycardia. She has a left bundle branch block that is present on prior tracings available within the system. No discordant or concordant ST-T wave changes of concern. No other acute findings at this time. Discharge Plan Discharge Patient Disposition: Home Clinical Impression: Enlarged gallbladder Condition: Stable Prescriptions: No Action apple cider vinegar 500 mg tablet PO DAILY 0RF amlodipine 2.5 mg tablet 2.5 mg PO DAILY 0RF lovastatin 10 mg tablet 10 mg PO DAILY 0RF metoprolol succinate 100 mg tablet extended release 24 hr See Rx Instructions .ROUTE .COMPLEX Qty: 180 3RF Dose Instruction: Take 1 tablet by mouth twice daily Rx Instructions: Take 1 tablet by mouth twice daily trazodone 50 mg tablet 50 mg PO BEDTIME 0RF valsartan 80 mg tablet 80 mg PO BID 0RF potassium chloride 20 mEq tablet,ER particles/crystals 20 meq PO DAILY 0RF pantoprazole 40 mg tablet,delayed release (DR/EC) 40 mg PO DAILY 0RF allopurinol 300 mg tablet 300 mg PO DAILY 0RF levothyroxine 112 mcg tablet 112 mcg PO DAILY 0RF Rx Instructions: take in the morning 30 minutes proir to breakfast with water. Vitamin B-12 250 mcg Tablet 250 mcg PO DAILY 0RF alprazolam 0.5 mg tablet 0.5 mg PO .hs 0RF furosemide 40 mg tablet 40 mg PO DAILY PRN0RF Discharge Orders: Discharge ED (Routine); Ordered 01/06/22 Ordered By: Larry Guzman Referrals: Ish Dumont MD [Primary Care Provider] - 1-3 days (follow up from ED visit- likely needs a HIDA scan to eval GB function) Discharge Diet: Advance as tolerated and Low Fat Discharge Activity: Increase activity as tolerated Patient Instructions: Opioid Safety Activity Restrictions/Additional Instructions: Continue your usual prescribed medications. Call your doctor tomorrow to have him arrange a HIDA scan to evaluate your gallbladder function. If you have any new, worsening or other symptoms return to this or the nearest emergency department. Coding Level of Care Code ED Induction Machine Setter for Jang Fwd Exam Comprehensive
--- NOTE | 2022-01-06 21:15 | ECG_ITS ---
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 Measurements Intervals [place] Rate: 57 P: 32 VA: 156 QRS: -5 QRSD: 131 T: 156 QT: 468 QTc: 457 Interpretive Statements SINUS BRADYCARDIA POSSIBLE LEFT ATRIAL ENLARGEMENT [-0.1mV P-WAVE IN V1/V2] LEFT BUNDLE BRANCH BLOCK [120+ ms QRS DURATION, 80+ ms Q/S IN V1/V2, 85+ ms R IN I/aVL/V5/V6] Compared to ECG 02/17/2020 18:05:24 Sinus rhythm no longer present Electronically Signed On 01-07-2022 20:47:20 CDT by Giancarlo Dixon M.D. [id number]
[2022-01-06] MEDS: ondansetron 2 mg/ML SDV 2 mL 4 MG IVP (21:42)
[2022-01-06] MEDS: sodium chloride 0.9% 1,000 ML 999 ML IV (21:42)
[2022-01-06 22:33] VITALS: BP 160/84; PULSE 69; RESP 18; O2SAT 95
[2022-01-06 23:07] LABS: Alanine Aminotransferase 10 U/L (0-33); Albumin Level 3.5 g/dL (3.5-5.2); Alkaline Phosphatase 59 IU/L (35-105); Anion Gap 12.7 (5-19); Aspartate Amino Transferase 17 U/L (0-32); Blood Urea Nitrogen 13 mg/dL (8-23); Calcium 8.6 mg/dL (8.5-10.5); Carbon Dioxide 24 mmol/L (22-29); Chloride 107 mmol/L (98-107); Globulin 2.2 g/dL (1.3-4.6); Glucose 105 mg/dL (65-115); Lipase 29 U/L (13-60); Osmolality Calculated 290 mOsm/kg (285-295); Potassium 3.7 mmol/L (3.5-5.1); Sodium 140 mmol/L (136-145); Total Protein 5.7 g/dL (6.6-8.7)
[2022-01-06 23:35] VITALS: PULSE 62; RESP 18; O2SAT 94
== END 2022-01-06 23:36 | disposition home or self-care (01) ==
PROVIDERS: Emergency Medicine; Emergency Provider Emergency Medicine; PCP Family Medicine
DX: K82.8 Other specified diseases of gallbladder (principal); R00.1 Bradycardia, unspecified; I44.7 Left bundle-branch block, unspecified
CPT/HCPCS: 74177; 80053; 83690; 85025; 93005; 96361; 96374; 99284; J2405; J7030; Q9967

== ENCOUNTER 2022-01-14 10:00 | Outpatient (CLI) | payer MEDICARE, OTHER, SELFPAY ==
--- NOTE | 2022-01-14 10:13 | NM_ITS ---
WS: [id number] NUCLEAR MEDICINE HIDA SCAN WITH GALLBLADDER EJECTION FRACTION HISTORY: ENLARGED GALLBLADDER COMPARISON: CT 01/06/2022 TECHNIQUE: The patient was intravenously injected with 7.3 mCi of TC99m Mebrofenin. Immediate imaging over the right upper quadrant was followed by 5 minute image and additional images for a total of 60 minutes. Normal uptake of radiotracer throughout the liver. Activity identified in the gallbladder at 15 minutes and well distended by 60 minutes. Activity in the proximal small bowel was seen by 30 minutes. Good washout of the radiotracer from the liver by 60 minutes. The patient then drank 8 ounces of Ensure Plus. Ejection fraction at 60 minutes was 75%. Normal GB ej ection fraction is 35-75%. Post fatty meal symptoms: None. NM/NM hepatobiliary w phar* [id number] IMPRESSION: 1. Normal HIDA scan. 2. Normal gallbladder ejection fraction.
== END 2022-01-14 10:01 | disposition home or self-care (01) ==
LOC: RAD 10:05
PROVIDERS: PCP Family Medicine; Visit Provider Family Medicine
DX: K82.8 Other specified diseases of gallbladder (principal)
CPT/HCPCS: 78227; A9537

== ENCOUNTER 2022-01-26 | Outpatient (CLI) | payer MEDICARE, OTHER, SELFPAY | END 2022-01-26 23:59 | disposition home or self-care (01) | LOC: RAD 03-28 16:47 | PROVIDERS: PCP Family Medicine; Visit Provider Family Medicine | DX: I35.0 Nonrheumatic aortic (valve) stenosis (principal); I44.7 Left bundle-branch block, unspecified; Z95.1 Presence of aortocoronary bypass graft; G47.30 Sleep apnea, unspecified; I11.0 Hypertensive heart disease with heart failure; I50.9 Heart failure, unspecified; I25.10 Atherosclerotic heart disease of native coronary artery without angina pectoris; E78.5 Hyperlipidemia, unspecified; E11.9 Type 2 diabetes mellitus without complications; Z79.84 Long term (current) use of oral hypoglycemic drugs | CPT/HCPCS: 99214 ==

== ENCOUNTER 2022-02-25 11:35 | Outpatient (CLI) | payer MEDICARE, OTHER, SELFPAY ==
--- NOTE | 2022-02-25 12:00 | USCV_ITS ---
Indira Guzman Age: 81 Gender: F : 1940 Exam Date: 02/25/2022 12:00 Ordering Phys: Pool Romo MD ([email or web address]) Technologist: JOSETTE Exam Location: [facility] – [place] Indication: F/U . PRIOR 10/02/2018 EF >60% BP: 170 / 70 HR: 58 Rhythm: Sinus Technical Quality: MEASUREMENTS (Male / Female) Normal Values 2D ECHO LV Diastolic Diameter PLAX 3.7 cm 4.2 - 5.9 / 3.9 - 5.3 cm LV Systolic Diameter PLAX 2.5 cm IVS Diastolic Thickness 1.1 cm 0.6 - 1.0 / 0.6 - 0.9 cm IVS Systolic Thickness 1.3 cm LVPW Diastolic Thickness 1.1 cm 0.6 - 1.0 / 0.6 - 0.9 cm LVPW Systolic Thickness 1.7 cm LVOT Diameter 2.0 cm LV Ejection Fraction 2D Teich 60.3 % LV Ejection Fraction MOD 2C 50.6 % LV Ejection Fraction 2C AL 50.8 % LA Diameter 4.6 cm RA Width 3.7 cm RA Height 5.1 cm Aorta at Sinotubular Diameter 2.0 cm M-MODE Aortic Annulus Diameter 1.8 cm LA Ao Ratio MM 2.6 MV E Point Septal Separation 1.0 cm DOPPLER AV Peak Velocity 263.0 cm/s LVOT Peak Velocity 90.0 cm/s AV Area Cont Eq vti 1.3 cm squared AV Area Cont Eq pk 1.1 cm squared MV Area PHT 5.0 cm squared Mitral E to A Ratio 1.2 MV E' Velocity 103.5 cm/s Mitral E to MV E' Ratio 37.2 Mitral E to LV E' Lateral Ratio 31.4 Mitral E to LV E' Septal Ratio 46.7 TR Peak Velocity 370.7 cm/s TR Peak Gradient 55.0 mmHg Right Atrial Pressure 8.0 mmHg Pulmonary Artery Systolic Pressu 63.0 mmHg PV Peak Velocity 150.0 cm/s FINDINGS Left Ventricle Normal left ventricular cavity size. Mild left ventricular hypertrophy. Normal left ventricular systolic function. No regional wall motion abnormalities. Left ventricular ejection fraction is estimated at 65 %. Grade I/IV diastolic dysfunction (abnormal relaxation filling pattern), normal to mildly elevated filling pressures. Right Ventricle Normal right ventricular size and systolic function. Moderate pulmonary hypertension, RVSP 63 mmHg. Right Atrium Mildly increased right atrial size. Left Atrium Mildly increased left atrial size. Mitral Valve Structurally normal mitral valve. Mild-moderate mitral valve regurgitation. No mitral valve stenosis. Aortic Valve Structurally normal trileaflet aortic valve. Moderate aortic valve calcification. Mild aortic valve stenosis, mean gradient 14 mmHg, MICHELLE 1.3 cm squared. Mild aortic valve regurgitation. Tricuspid Valve Structurally normal tricuspid valve. [id number] tricuspid valve regurgitation. Pulmonic Valve Pulmonic valve not well visualized. Pericardium Normal pericardium without effusion. Aorta Normal ascending aorta dimension. IVC The inferior vena cava pulmonary and hepatic veins appear normal. CONCLUSIONS Normal left ventricular cavity size. Mild left ventricular hypertrophy. Normal left ventricular systolic function. No regional wall motion abnormalities. Left ventricular ejection fraction is estimated at 65 %. Grade I/IV diastolic dysfunction (abnormal relaxation filling pattern), normal to mildly elevated filling pressures. Normal right ventricular size and systolic function. Moderate pulmonary hypertension, RVSP 63 mmHg. Mildly increased right atrial size. Mildly increased left atrial size. Structurally normal mitral valve. Mild-moderate mitral valve regurgitation. No mitral valve stenosis. Structurally normal trileaflet aortic valve. Moderate aortic valve calcification. Mild aortic valve stenosis, mean gradient 14 mmHg, MICHELLE 1.3 cm squared. Mild aortic valve regurgitation. No significant change since the prior echocardiogram study. Dr. Pool Romo MD (Electronically Signed) Final Date: 25 February 2022 14:24 S
== END 2022-02-25 11:36 | disposition home or self-care (01) ==
LOC: RAD 11:40
PROVIDERS: PCP Family Medicine; Visit Provider Internal Medicine Cardiovascular Disease
DX: I35.0 Nonrheumatic aortic (valve) stenosis (principal)
CPT/HCPCS: 93306

== ENCOUNTER 2022-03-28 08:52 | Outpatient (CLI) | payer MEDICARE, OTHER, SELFPAY ==
--- NOTE | 2022-03-28 08:59 | MM_ITS ---
WS: [id number] BILATERAL SCREENING DIGITAL BREAST TOMOSYNTHESIS MAMMOGRAM WITH CAD HISTORY: SCREENING COMPARISON: 09/23/2020 and 11/01/2018 Bilateral CC and MLO views with tomosynthesis and synthetic mammography submitted. Computer aided det ection analyzed. Breast composition: There are scattered areas of fibroglandular density. No suspicious masses, microc alcifications or architectural distortion. Benign calcifications within each breast. Breast arterial calcifications. MM/[id number] IMPRESSION: BI-RADS: 2-Benign FOLLOW UP: 1 Year Follow-up
== END 2022-03-28 08:53 | disposition home or self-care (01) ==
LOC: RAD 08:54
PROVIDERS: PCP Family Medicine; Visit Provider Family Medicine
DX: Z12.31 Encounter for screening mammogram for malignant neoplasm of breast (principal)
CPT/HCPCS: 77063; 77067

== ENCOUNTER → 2022-10-24 11:22 | Outpatient (BNVA) | payer MEDICARE, OTHER, SELFPAY | PROVIDERS: PCP Family Medicine; Visit Provider Clinical Nurse Specialist Adult Health | DX: M10.9 Gout, unspecified (principal); M10.039 Idiopathic gout, unspecified wrist | CPT/HCPCS: 84550 ==

== ENCOUNTER → 2022-11-04 10:50 | Outpatient (BNVA) | payer MEDICARE, OTHER, SELFPAY | PROVIDERS: PCP Family Medicine; Visit Provider Internal Medicine Cardiovascular Disease | DX: I11.0 Hypertensive heart disease with heart failure (principal); I50.9 Heart failure, unspecified; I44.7 Left bundle-branch block, unspecified; I35.0 Nonrheumatic aortic (valve) stenosis; G47.30 Sleep apnea, unspecified; Z95.1 Presence of aortocoronary bypass graft; E11.9 Type 2 diabetes mellitus without complications; I25.10 Atherosclerotic heart disease of native coronary artery without angina pectoris; E78.5 Hyperlipidemia, unspecified; I27.21 Secondary pulmonary arterial hypertension | CPT/HCPCS: 99214 ==

== ENCOUNTER → 2023-01-04 13:30 | Outpatient (BNVA) | payer MEDICARE, OTHER, SELFPAY | PROVIDERS: PCP Family Medicine; Visit Provider Internal Medicine Cardiovascular Disease | DX: I27.21 Secondary pulmonary arterial hypertension (principal); I44.7 Left bundle-branch block, unspecified; I35.0 Nonrheumatic aortic (valve) stenosis; Z95.1 Presence of aortocoronary bypass graft; I11.0 Hypertensive heart disease with heart failure; I50.9 Heart failure, unspecified; G47.30 Sleep apnea, unspecified; E11.9 Type 2 diabetes mellitus without complications; I25.10 Atherosclerotic heart disease of native coronary artery without angina pectoris; E78.5 Hyperlipidemia, unspecified | CPT/HCPCS: 93005; 99215 ==

== ENCOUNTER 2023-02-06 12:13 | Outpatient (CLI) | payer MEDICARE, OTHER, SELFPAY ==
--- NOTE | 2023-02-06 12:30 | USCV_ITS ---
Idnira Guzman Age: 82 Gender: F : 1940 Exam Date: 02/06/2023 12:41 Ordering Phys: Pool Romo MD ([email or web address]) Technologist: Tima Hernandez Exam Location: [facility] [place] Indication: sob BP: 152 / 72 HR: 59 Rhythm: Sinus Technical Quality: Suboptimal MEASUREMENTS (Male / Female) Normal Values 2D ECHO LVOT Diameter 2.0 cm LV Ejection Fraction MOD 2C 62.3 % LV Ejection Fraction 2C AL 65.4 % LA Diameter 3.8 cm LA Width 3.7 cm LA Height 5.1 cm RA Width 2.9 cm RA Height 5.1 cm Aorta at Sinotubular Diameter 1.5 cm IVC Diameter 1.6 cm M-MODE Aortic Annulus Diameter 2.0 cm LA Ao Ratio MM 2.0 MV E Point Septal Separation 1.0 cm DOPPLER AV Peak Velocity 267.8 cm/s LVOT Peak Velocity 100.0 cm/s AV Area Cont Eq vti 1.3 cm squared AV Area Cont Eq pk 1.2 cm squared MV Peak Velocity 217.0 cm/s MV Area PHT 2.0 cm squared Mitral E to A Ratio 1.1 MV E' Velocity 57.4 cm/s Mitral E to MV E' Ratio 20.0 Mitral E to LV E' Lateral Ratio 15.1 Mitral E to LV E' Septal Ratio 30.2 TR Peak Velocity 351.0 cm/s TR Peak Gradient 49.3 mmHg TR Mean Velocity 253.9 cm/s TR Mean Gradient 28.6 mmHg TR Velocity Time Integral 110.2 cm Right Atrial Pressure 3.0 mmHg Pulmonary Artery Systolic Pressu 52.3 mmHg PV Peak Velocity 152.0 cm/s RV Acceleration Time 0.1 s RV Ejection Time 0.3 s RV AcT/ET 0.4 FINDINGS Left Ventricle Normal left ventricular cavity size. Mild left ventricular hypertrophy. Normal left ventricular systolic function. Left ventricular ejection fraction is estimated at 55 % no regional wall motion abnormalities. Grade I/IV diastolic dysfunction (abnormal relaxation filling pattern), normal to mildly elevated filling pressures. Right Ventricle Normal right ventricular size and systolic function. Normal right ventricular systolic pressure. Right Atrium The right atrium is normal in size. Left Atrium Mildly increased left atrial size. Mitral Valve Structurally normal mitral valve. Mild mitral valve regurgitation. Aortic Valve Structurally normal trileaflet aortic valve. Mild aortic valve calcification.Mild to moderate aortic valve stenosis, mean gradient 13.8 mmHg, MICHELLE 1.3 cm squared. Mild aortic valve regurgitation. Tricuspid Valve Structurally normal tricuspid valve. [id number] tricuspid valve regurgitation. Pulmonic Valve Pulmonic valve not well visualized. Mild pulmonary valve regurgitation. Pericardium Normal pericardium without effusion. Aorta Normal ascending aorta dimension. IVC The inferior vena cava appears normal. CONCLUSIONS Normal left ventricular cavity size. Mild left ventricular hypertrophy. Normal left ventricular systolic function. Left ventricular ejection fraction is estimated at 55 % no regional wall motion abnormalities. Grade I/IV diastolic dysfunction (abnormal relaxation filling pattern), normal to mildly elevated filling pressures. Mildly increased left atrial size. Structurally normal mitral valve. Mild mitral valve regurgitation. Structurally normal trileaflet aortic valve. Mild aortic valve calcification.Mild to moderate aortic valve stenosis, mean gradient 13.8 mmHg, MICHELLE 1.3 cm squared. Mild aortic valve regurgitation. Structurally normal tricuspid valve. [id number] tricuspid valve regurgitation. From the revious echo dated 02/25/22, the PHTN noted then is not evident on today's study. Otherwise no change. Dr. Pool Romo MD (Electronically Signed) Final Date: 06 February 2023 15:30 S
== END 2023-02-06 12:14 | disposition home or self-care (01) ==
LOC: RAD 12:13
PROVIDERS: PCP Family Medicine; Visit Provider Internal Medicine Cardiovascular Disease
DX: I36.2 Nonrheumatic tricuspid (valve) stenosis with insufficiency (principal); I27.21 Secondary pulmonary arterial hypertension; I44.7 Left bundle-branch block, unspecified; Z95.1 Presence of aortocoronary bypass graft; I50.9 Heart failure, unspecified
CPT/HCPCS: 93306; 99215

== ENCOUNTER 2023-03-30 12:55 | Outpatient (CLI) | payer MEDICARE, OTHER, SELFPAY ==
--- NOTE | 2023-03-30 13:18 | MM_ITS ---
WS: [id number] Bilateral screening 3D tomosynthesis digital mammogram, 03/30/2023 Clinical Data: SCREENING Comparison: 03/28/2022, 09/23/2020, 11/01/2018, 07/29/2015, 07/17/2014, 07/16/2013, 05/16/2012, 04/21/2011, , 08/26/2008, 07/10/2007, 06/08/2006. Findings: The breast parenchymal pattern shows fibroglandular tissue. No spiculated masses or clustered calcifi cations are seen. There are no secondary signs of carcinoma. There are scattered benign calcification s throughout both breasts. MM/[id number] Impression: 1. Negative bilateral mammogram unchanged. 2. Recommend annual screening mammograms. BIRADS: 1-Negative FOLLOW UP: 1 Year Follow-up The CAD price checker was used.
== END 2023-03-30 12:56 | disposition home or self-care (01) ==
PROVIDERS: PCP Family Medicine; Visit Provider Family Medicine
DX: Z12.31 Encounter for screening mammogram for malignant neoplasm of breast (principal)
CPT/HCPCS: 77063; 77067

== ENCOUNTER 2023-04-13 10:43 | Inpatient (IN) | payer MEDICARE, OTHER, SELFPAY ==
[2023-04-13] VITALS (55 sets, daily range): BP systolic 111–207; BP diastolic 62–177; PULSE 52–113; RESP 13–31; TEMP 35.6–35.7; O2SAT 89–100; BMI 40.3
--- NOTE | 2023-04-13 11:04 | CT_ITS ---
WS: [id number] CT HEAD NONCONTRAST HISTORY: AMS TECHNIQUE: Contiguous axial imaging performed through the brain in 2.5 mm imaging. Bone and soft tiss ue windows. Sagittal and coronal reformats reviewed. All CT scans at [facility] use at least one of these dose optimization techniques: automated exposure control; mA and/or kV adjustment per pa tient size (includes targeted exams where dose is matched to clinical indication); or iterative recon struction. DLP: 1945.18 mGy.cm COMPARISON: 04/16/2018 No acute intracranial hemorrhage, midline shift or mass effect. Moderate bilateral symmetric atrophy. No sulcal effacement. No prior large territory infarct. Mild sm all vessel ischemic changes. Ventricles: Normal size with no hydrocephalus. No inferior displacement the cerebellar tonsils. Paranasal sinuses: As visualized are clear. Mastoid air cells: Well pneumatized. Calvarium and scalp: Skull is intact with no soft tissue edema or swelling. Atherosclerotic plaque within the intracranial carotid arteries. IMPRESSION: 1. No acute intracranial hemorrhage or edema. 2. Moderate atrophy and small vessel ischemic disease. Similar to the study from 2018.
--- NOTE | 2023-04-13 11:05 | XR_ITS ---
WS: [id number] Portable AP supine chest, 04/13/2023 Clinical Data: AMS Comparison: Portable chest, 02/17/2020 Findings: No nodules, masses or effusions are seen. There is a patchy opacity in the retrocardiac reg ion which may represent atelectasis and/or pneumonia. The heart is slightly enlarged. The pulmonary v ascularity is not increased. No pneumonia or pneumothorax is seen. Midline sternotomy sutures are pre sent. The aortic arch and descending thoracic aorta show calcification and tortuosity. There are mahi tor leads on the chest wall. Impression: 1. Minimal patchy opacity in retrocardiac region which could represent atelectasis and/or pneumonia. 2. Cardiomegaly and atherosclerosis.
[2023-04-13] MEDS: LORazepam 2 mg/mL INJ 1 mL IVP (11:06)
--- NOTE | 2023-04-13 11:06 | ED_ITS ---
Documented by User: DAKOTA Shearer 04/17/23 07:11 HPI - Altered Mental Status General: Chief Complaint: Anxiety Stated Complaint: ANXIETY Time Seen by Provider: 04/13/23 10:48 Source: family (daughter) and EMS Mode of arrival: EMS Limitations: altered mental status History of Present Illness: Patient is an 82-year-old female who presents to the emergency department via EMS due to altered mental status today. EMS was called by patient's daughter, stating that when she arrived to mother's house she was very confused/altered. Daughter had spoken to her earlier on the phone and she was slightly confused then thus prompting her to go and check on her. Daughter states that she has never been like this before, but notes that she found her pill tray doses full of pills indicating that she has not been taking these. Daughter is unable to report the patient's past medical history, or what kind of medication she takes. Upon arrival into the emergency department, the patient is unable to answer any questions and is becoming increasingly agitated. Review of systems not obtainable at this time due to patient's altered mentation. EMS states that they gave the patient nitro and aspirin en route for some complaints of chest pain. As far as the daughter knows, the patient has not suffered from any recent urinary tract infections or other illness. Patient's vitals and blood glucose are normal. complaint: altered mental status Onset (ago): unknown Timing confirmed by: family member Severity: severe Consistency of symptoms: Getting Worse Context: other (Medication noncompliant) Associated symptoms: Reports no associated symptoms Treatments prior to arrival: other (Aspirin and nitro) Review of Systems General: Reports: ROS unobtainable due to mental status [facility] ED PFSH: Medical History (Updated 04/15/23 @ 13:58 by Deepa Byrne MD) Anxiety Bilateral thumb pain Cerumen impaction Congestive heart failure Conjunctivitis Coronary artery disease DM type 2 (diabetes mellitus, type 2) Exposure to influenza GERD (gastroesophageal reflux disease) Gout High pulmonary arterial pressure Hyperlipidemia Hypertension Hypothyroidism Left bundle branch block Mild aortic stenosis Sleep apnea Surgical History (Updated 04/13/23 @ 17:24 by Ish Ferguson MD) History of appendectomy Hx of CABG x 3 vessels Hx of hysterectomy With BLO Hx of tubal ligation Social History Smoking and tobacco status: never smoked Physical Exam Const: COMMON NORMALS: alert EXAM LIMITATIONS: altered mental status GENERAL APPEARANCE: anxious and combative NUTRITIONAL APPEARANCE: obese ORIENTATION/CONSCIOUSNESS: Yes confused HENMT: COMMON NORMALS: normocephalic, atraumatic and Normal external nose present HEAD & SCALP: normal to inspection, normocephalic and atraumatic FACE & SINUS: normal facial exam NOSE: Normal external nose present Eye: COMMON NORMALS: Equal, round and reactive pupils present, EOMs intact bilaterally, conjunctivae normal and no scleral icterus CONJUNCTIVA: Yes conjunctivae normal PUPIL: Yes Equal, round and reactive pupils present Neck/C-Spine: COMMON NORMALS: no meningeal signs Chest: COMMONS NORMALS: normal inspection of the chest Resp: COMMON NORMALS: normal respiratory effort, No use of accessory muscles and clear to auscultation bilaterally AUSCULTATION: clear to auscultation bilaterally, no crackles, no rales, no rhonchi and no wheezes Cardio: COMMON NORMALS: regular rate, regular rhythm, S1 normal heart sound present, S2 normal heart sound present, No gallops present (Cardio), No clicks present (Cardio), No murmurs present (Cardio), No rub (Cardio) and Peripheral pulses 2+ throughout RATE: regular rate RHYTHM: regular rhythm HEART SOUNDS: S1 normal heart sound present and S2 normal heart sound present PERIPHERAL PULSES: Peripheral pulses 2+ throughout GI: COMMON NORMALS: Normal to inspection, nondistended, normoactive bowel sounds present, Soft to palpation, non-tender and No hepatosplenomegaly present INSPECTION: Yes normal to inspection PALPATION: Yes Soft to palpation and Yes No hepatosplenomegaly present Extremity: COMMON NORMALS: normal to inspection and full ROM GENERAL: Yes normal exam except as noted Neuro: COMMON NORMALS: moves all extremities, no focal motor deficits and no s ensory deficits noted SENSORIUM/ORIENTATION: Yes alert MENINGEAL SIGNS: Yes no meningeal signs SPEECH: Other neuro speech findings (Garbled) MOTOR EXAM: 5/5 motor strength present throughout OTHER: Exam limited due to patient's disoriented state. She does not seem to exhibit any focal motor deficits or facial asymmetry. Skin: COMMON NORMALS: no rashes or lesions noted GENERAL SKIN EXAM: no rashes or lesions noted Course Vital Signs: Vital signs: Vital Signs Temperature 97.8 F 04/16/23 08:00 Pulse Rate 69 04/16/23 16:29 Respiratory Rate 19 H 04/16/23 16:29 Blood Pressure 145/78 04/16/23 16:29 Pulse Oximetry 93 04/16/23 14:30 Oxygen Delivery Me thod Room Air 04/16/23 14:30 Oxygen Flow Rate 2 04/15/23 11:00 MDM - Altered Mental Status Lab Data 04/16/23 04:11 04/16/23 04:11 Radiology Impressions Chest/Abdomen/Pelvis CT 04/13/23 18:05 IMPRESSION: 1. Negative for pulmonary embolus. 2. Cardiomegaly. 3. Coronary artery atherosclerotic calcifications. 4. Emphysematous changes. 5. Bilateral dependent atelectasis versus minimal infiltrate. 6. Sternotomy wires. 7. Scattered prominent mediastinal lymph nodes measuring up 10 mm, nonspecific. IMPRESSION: 1. Negative for acute inflammatory process in the abdomen or pelvis. 2. Hepatic steatosis. 3. Moderate to large hiatal hernia. 4. Diverticulosis without diverticulitis. 5. Trevizo catheter in the urinary bladder with air presumed iatrogenic. 6. Atherosclerotic calcification at the origin of superior mesenteric and bilateral renal arteries with suspected 80-90% luminal narrowing with contrast seen distally. 7. Decreased enhancement to the inferior aspect of the spleen suggestive of a splenic infarct, age indeterminate. Head CT 04/14/23 07:43 IMPRESSION: No acute intracranial abnormality. Carotid Doppler Study 04/14/23 16:52 IMPRESSION: 50-69% stenosis of both proximal internal carotid arteries. There is also moderate stenosis at the origin of the external carotid arteries. REFERENCES: SRU CRITERIA. The degree of internal carotid artery stenosis is based on criteria defined by the Society of Radiologists in Ultrasound (SRU). Normal is no stenosis. Mild is less than 50% stenosis. Moderate is 50-69% stenosis. Severe is greater than 69% stenosis to near occlusion. Near occlusion is a markedly narrowed lumen. Total occlusion is no detectable patent lumen. Neck CTA 04/16/23 08:23 IMPRESSION: 1. Focal luminal irregularity and near occlusion of proximal left common carotid artery. There is no calcific plaque at the site. Findings may represent soft plaque, nonocclusive thrombus, or intimal tear without dissection. 2. Calcific plaque with less than 50% stenosis of the internal and external carotid artery origins bilaterally. 3. 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 The degree of stenosis cannot be accurately assessed due to its morphology. 4. Incidental findings above. REFERENCES: NASCET CRITERIA. The degree of stenosis in the cervical segment of the internal carotid artery is based on NASCET criteria. Normal is no stenosis. Mild is less than 50% stenosis. Moderate is 50-69% stenosis. Severe is 70% to 99% stenosis. Total occlusion is no detectable patent lumen. ADDENDUM: 04/16/23 1012 THIS REPORT CONTAINS FINDINGS THAT MAY BE CRITICAL TO PATIENT CARE. The findings were verbally communicated via telephone conference with Ish Ferguson at 10:09 AM [place] on 04/16/2023. The findings were acknowledged and understood. Laboratory Results WBC 7.8 10^3/uL (4.0-10.0) 04/13/23 10:23 RBC 4.79 10^6/uL (4.1-5.3) 04/13/23 10:23 Hgb 14.3 g/dL (11.5-15.3) 04/13/23 10:23 Hct 44.8 % (37.0-47.0) 04/13/23 10:23 MCV 93.5 fl (81-99) 04/13/23 10:23 MCH 29.9 pg (28.0-34.0) 04/13/23 10:23 MCHC 31.9 g/dL (30.0-36.0) 04/13/23 10:23 RDW 13.8 % (12.1-15.1) 04/13/23 10:23 Plt Count 244 10^3/cmm (130-400) 04/13/23 10:23 MPV 10.9 fL (7.4-10.4) H 04/13/23 10:23 Neut % (Auto) 58.2 % 04/13/23 10:23 Lymph % (Auto) 31.1 % 04/13/23 10:23 [place] % (Auto) 6.3 % 04/13/23 10:23 Eos % (Auto) 3.2 % 04/13/23 10:23 Baso % (Auto) 0.9 % 04/13/23 10:23 Neut # (Auto) 4.55 10^3/uL (1.8-7.7) 04/13/23 10:23 Lymph # (Auto) 2.4 10^3/uL (0.8-4.8) 04/13/23 10:23 [place] # (Auto) 0.5 10^3/uL (0.2-0.9) 04/13/23 10:23 Eos # (Auto) 0.3 10^3/uL (0.0-0.8) 04/13/23 10:23 Baso # (Auto) 0.1 10^3/uL (0.0-0.1) 04/13/23 10:23 Nucleated RBC % (auto) 0 % 04/13/23 10:23 Nucleated RBCs # 0.0 /100WBC 04/13/23 10:23 Sodium 140 mmol/L (136-145) 04/13/23 10:23 Potassium 4.3 mmol/L (3.5-5.1) 04/13/23 10:23 Chloride 102 mmol/L (98-107) 04/13/23 10:23 Carbon Dioxide 25 mmol/L (22-29) 04/13/23 10:23 Anion Gap 17.3 (5-19) 04/13/23 10:23 BUN 14 mg/dL (8-23) 04/13/23 10:23 Creatinine 0.9 mg/dL (0.5-0.9) 04/13/23 10:23 GFR Calculation Not Reportable 04/13/23 10:23 Glucose 98 mg/dL (65-115) 04/13/23 10:23 Calculated Osmolality 290 mOsm/kg (285-295) 04/13/23 10:23 Lactic Acid 4.5 mmol/L (0.5-2.2) H* 04/13/23 12:20 Calcium 10.1 mg/dL (8.5-10.5) 04/13/23 10:23 Total Bilirubin 0.8 mg/dL (0.15-1.2) 04/13/23 10:23 AST 19 U/L (0-32) 04/13/23 10:23 ALT 8 U/L (0-33) 04/13/23 10:23 Alkaline Phosphatase 80 U/L (35-105) 04/13/23 10:23 Troponin T Baseline 26 ng/L (0-10) H 04/13/23 10:23 Troponin T 120 Minute 21.99 ng/L (0-10) H 04/13/23 12:20 Delta Troponin T -4.01 ABS# (0-10) L 04/13/23 12:20 Total Protein 6.6 g/dL (6.6-8.7) 04/13/23 10:23 Albumin 4.5 g/dL (3.5-5.2) 04/13/23 10:23 Globulin 2.1 g/dL (1.3-4.6) 04/13/23 10:23 Procalcitonin 0.07 ng/mL (0-0.5) 04/13/23 10: TSH 1.35 uIU/mL (0.27-4.20) 04/13/23 10:23 Urine Color Yellow (Yellow) 04/13/23 12:56 Urine Appearance Clear (CLEAR) 04/13/23 12:56 Urine pH 6.5 (5-7) 04/13/23 12:56 Ur Specific [place] 1.010 (1.005-1.030) 04/13/23 12:56 Urine Protein Trace (Negative) 04/13/23 12:56 Urine Glucose (UA) Norm (Normal) 04/13/23 12:56 Urine Ketones 1+ (Negative) H 04/13/23 12:56 Urine Blood Neg (Negative) 04/13/23 12:56 Urine Nitrate Negative (Negative) 04/13/23 12:56 Urine Bilirubin Neg (Negative) 04/13/23 12:56 Urine Urobilinogen Norm mg/dL (Negative) 04/13/23 12:56 Ur Leukocyte Esterase Negative (Negative) 04/13/23 12:56 Urine RBC 0-4 /hpf (0-2) H 04/13/23 12:56 Urine WBC 0-4 /hpf (0-5) H 04/13/23 12:56 Ur Squamous Epith Cells 10-15 /hpf (0-5) H 04/13/23 12:56 Amorphous Sediment Not Reportable 04/13/23 12:56 Urine Bacteria Trace /hpf (NONE) 04/13/23 12:56 Hyaline Casts 5-10 /lpf H 04/13/23 12:56 Urine Opiates Screen Negative ng/mL (Negative) 04/13/23 12:56 Ur Barbiturates Screen Negative ng/mL (Negative) 04/13/23 12:56 Ur Phencyclidine Scrn Negative ng/mL (Negative) 04/13/23 12:56 Ur Amphetamines Screen Negative ng/mL (Negative) 04/13/23 12:56 U Benzodiazepines Scrn Positive ng/mL (Negative) H 04/13/23 12:56 Urine Cocaine Screen Negative ng/mL (Negative) 04/13/23 12:56 U Marijuana (THC) Screen Negative ng/mL (Negative) 04/13/23 12:56 Discharge Plan Discharge Patient Disposition: Admitted As Inpatient Admit Provider: Ish Ferguson Clinical Impression: Altered mental status Condition: Stable Coding Level of Care Code ED Legal Administrative Assistant for Chg Fwd Documented by User: Rae Rodriguez MD 04/13/23 13:44 HPI - Altered Mental Status General: Chief Complaint: Anxiety Stated Complaint: ANXIETY Time Seen by Provider: 04/13/23 10:48 PFSH ED PFSH: Medical History (Updated 04/15/23 @ 13:58 by Deepa Byrne MD) Anxiety Bilateral thumb pain Cerumen impaction Congestive heart failure Conjunctivitis Coronary artery disease DM type 2 (diabetes mellitus, type 2) Exposure to influenza GERD (gastroesophageal reflux disease) Gout High pulmonary arterial pressure Hyperlipidemia Hypertension Hypothyroidism Left bundle branch block Mild aortic stenosis Sleep apnea Surgical History (Updated 04/13/23 @ 17:24 by Ish Ferguson MD) History of appendectomy Hx of CABG x 3 vessels Hx of hysterectomy With BLO Hx of tubal ligation Social History Smoking and tobacco status: never smoked Course Vital Signs: Vital signs: Vital Signs Temperature 97.8 F 04/16/23 08:00 Pulse Rate 69 04/16/23 16:29 Respiratory Rate 19 H 04/16/23 16:29 Blood Pressure 145/78 04/16/23 16:29 Pulse Oximetry 93 04/16/23 14:30 Oxygen Delivery Me thod Room Air 04/16/23 14:30 Oxygen Flow Rate 2 04/15/23 11:00 MDM - Altered Mental Status Medical Decision Making Patient presents with altered mental status her last known normal was 1 to 2 days ago patient been extremely anxious here but had give her Haldol and Ativan her blood work so far is normal except for an elevated lactate she has no signs of sepsis white count was normal spoke to the hospitalist will admit to ICU at this time Medical Records I reviewed the patient's medical records. Lab Data 04/16/23 04:11 04/16/23 04:11 Radiology Impressions Chest/Abdomen/Pelvis CT 04/13/23 18:05 IMPRESSION: 1. Negative for pulmonary embolus. 2. Cardiomegaly. 3. Coronary artery atherosclerotic calcifications. 4. Emphysematous changes. 5. Bilateral dependent atelectasis versus minimal infiltrate. 6. Sternotomy wires. 7. Scattered prominent mediastinal lymph nodes measuring up 10 mm, nonspecific. IMPRESSION: 1. Negative for acute inflammatory process in the abdomen or pelvis. 2. Hepatic steatosis. 3. Moderate to large hiatal hernia. 4. Diverticulosis without diverticulitis. 5. Trevizo catheter in the urinary bladder with air presumed iatrogenic. 6. Atherosclerotic calcification at the origin of superior mesenteric and bilateral renal arteries with suspected 80-90% luminal narrowing with contrast seen distally. 7. Decreased enhancement to the inferior aspect of the spleen suggestive of a splenic infarct, age indeterminate. Head CT 04/14/23 07:43 IMPRESSION: No acute intracranial abnormality. Carotid Doppler Study 04/14/23 16:52 IMPRESSION: 50-69% stenosis of both proximal internal carotid arteries. There is also moderate stenosis at the origin of the external carotid arteries. REFERENCES: SRU CRITERIA. The degree of internal carotid artery stenosis is based on criteria defined by the Society of Radiologists in Ultrasound (SRU). Normal is no stenosis. Mild is less than 50% stenosis. Moderate is 50-69% stenosis. Severe is greater than 69% stenosis to near occlusion. Near occlusion is a markedly narrowed lumen. Total occlusion is no detectable patent lumen. Neck CTA 04/16/23 08:23 IMPRESSION: 1. Focal luminal irregularity and near occlusion of proximal left common carotid artery. There is no calcific plaque at the site. Findings may represent soft plaque, nonocclusive thrombus, or intimal tear without dissection. 2. Calcific plaque with less than 50% stenosis of the internal and external carotid artery origins bilaterally. 3. 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 The degree of stenosis cannot be accurately assessed due to its morphology. 4. Incidental findings above. REFERENCES: NASCET CRITERIA. The degree of stenosis in the cervical segment of the internal carotid artery is based on NASCET criteria. Normal is no stenosis. Mild is less than 50% stenosis. Moderate is 50-69% stenosis. Severe is 70% to 99% stenosis. Total occlusion is no detectable patent lumen. ADDENDUM: 04/16/23 1012 THIS REPORT CONTAINS FINDINGS THAT MAY BE CRITICAL TO PATIENT CARE. The findings were verbally communicated via telephone conference with Ish Ferguson at 10:09 AM CDT on 04/16/2023. The findings were acknowledged and understood. Laboratory Results WBC 7.8 10^3/uL (4.0-10.0) 04/13/23 10:23 RBC 4.79 10^6/uL (4.1-5.3) 04/13/23 10:23 Hgb 14.3 g/dL (11.5-15.3) 04/13/23 10:23 Hct 44.8 % (37.0-47.0) 04/13/23 10:23 MCV 93.5 fl (81-99) 04/13/23 10:23 MCH 29.9 pg (28.0-34.0) 04/13/23 10:23 MCHC 31.9 g/dL (30.0-36.0) 04/13/23 10:23 RDW 13.8 % (12.1-15.1) 04/13/23 10:23 Plt Count 244 10^3/cmm (130-400) 04/13/23 10:23 MPV 10.9 fL (7.4-10.4) H 04/13/23 10:23 Neut % (Auto) 58.2 % 04/13/23 10:23 Lymph % (Auto) 31.1 % 04/13/23 10:23 [place] % (Auto) 6.3 % 04/13/23 10:23 Eos % (Auto) 3.2 % 04/13/23 10:23 Baso % (Auto) 0.9 % 04/13/23 10:23 Neut # (Auto) 4.55 10^3/uL (1.8-7.7) 04/13/23 10:23 Lymph # (Auto) 2.4 10^3/uL (0.8-4.8) 04/13/23 10:23 [place] # (Auto) 0.5 10^3/uL (0.2-0.9) 04/13/23 10:23 Eos # (Auto) 0.3 10^3/uL (0.0-0.8) 04/13/23 10:23 Baso # (Auto) 0.1 10^3/uL (0.0-0.1) 04/13/23 10:23 Nucleated RBC % (auto) 0 % 04/13/23 10:23 Nucleated RBCs # 0.0 /100WBC 04/13/23 10:23 Sodium 140 mmol/L (136-145) 04/13/23 10:23 Potassium 4.3 mmol/L (3.5-5.1) 04/13/23 10:23 Chloride 102 mmol/L (98-107) 04/13/23 10:23 Carbon Dioxide 25 mmol/L (22-29) 04/13/23 10:23 Anion Gap 17.3 (5-19) 04/13/23 10:23 BUN 14 mg/dL (8-23) 04/13/23 10:23 Creatinine 0.9 mg/dL (0.5-0.9) 04/13/23 10:23 GFR Calculation Not Reportable 04/13/23 10:23 Glucose 98 mg/dL (65-115) 04/13/23 10:23 Calculated Osmolality 290 mOsm/kg (285-295) 04/13/23 10:23 Lactic Acid 4.5 mmol/L (0.5-2.2) H* 04/13/23 12:20 Calcium 10.1 mg/dL (8.5-10.5) 04/13/23 10:23 Total Bilirubin 0.8 mg/dL (0.15-1.2) 04/13/23 10:23 AST 19 U/L (0-32) 04/13/23 10:23 ALT 8 U/L (0-33) 04/13/23 10:23 Alkaline Phosphatase 80 U/L (35-105) 04/13/23 10:23 Troponin T Baseline 26 ng/L (0-10) H 04/13/23 10:23 Troponin T 120 Minute 21.99 ng/L (0-10) H 04/13/23 12:20 Delta Troponin T -4.01 ABS# (0-10) L 04/13/23 12:20 Total Protein 6.6 g/dL (6.6-8.7) 04/13/23 10:23 Albumin 4.5 g/dL (3.5-5.2) 04/13/23 10:23 Globulin 2.1 g/dL (1.3-4.6) 04/13/23 10:23 Procalcitonin 0.07 ng/mL (0-0.5) 04/13/23 10:23 TSH 1.35 uIU/mL (0.27-4.20) 04/13/23 10:23 Urine Color Yellow (Yellow) 04/13/23 12:56 Urine Appearance Clear (CLEAR) 04/13/23 12:56 Urine pH 6.5 (5-7) 04/13/23 12:56 Ur Specific [place] 1.010 (1.005-1.030) 04/13/23 12:56 Urine Protein Trace (Negative) 04/13/23 12:56 Urine Glucose (UA) Norm (Normal) 04/13/23 12:56 Urine Ketones 1+ (Negative) H 04/13/23 12:56 Urine Blood Neg (Negative) 04/13/23 12:56 Urine Nitrate Negative (Negative) 04/13/23 12:56 Urine Bilirubin Neg (Negative) 04/13/23 12:56 Urine Urobilinogen Norm mg/dL (Negative) 04/13/23 12:56 Ur Leukocyte Esterase Negative (Negative) 04/13/23 12:56 Urine RBC 0-4 /hpf (0-2) H 04/13/23 12:56 Urine WBC 0-4 /hpf (0-5) H 04/13/23 12:56 Ur Squamous Epith Cells 10-15 /hpf (0-5) H 04/13/23 12:56 Amorphous Sediment Not Reportable 04/13/23 12:56 Urine Bacteria Trace /hpf (NONE) 04/13/23 12:56 Hyaline Casts 5-10 /lpf H 04/13/23 12:56 Urine Opiates Screen Negative ng/mL (Negative) 04/13/23 12:56 Ur Barbiturates Screen Negative ng/mL (Negative) 04/13/23 12:56 Ur Phencyclidine Scrn Negative ng/mL (Negative) 04/13/23 12:56 Ur Amphetamines Screen Negative ng/mL (Negative) 04/13/23 12:56 U Benzodiazepines Scrn Positive ng/mL (Negative) H 04/13/23 12:56 Urine Cocaine Screen Negative ng/mL (Negative) 04/13/23 12:56 U Marijuana (THC) Screen Negative ng/mL (Negative) 04/13/23 12:56 Discharge Plan Discharge Patient Disposition: Admitted As Inpatient Admit Provider: Ish Ferguson Clinical Impression: Altered mental status Condition: Stable Coding Level of Care Code ED Legal Administrative Assistant for [employer]on Boogie
[2023-04-13 11:13] LABS: Basophils # 0.1 10^3/uL (0.0-0.1); Basophils % 0.9 %; Eosinophils # 0.3 10^3/uL (0.0-0.8); Eosinophils % 3.2 %; Hematocrit 44.8 % (37.0-47.0); Hemoglobin 14.3 g/dL (11.5-15.3); Lymphocytes # 2.4 10^3/uL (0.8-4.8); Lymphocytes % 31.1 %; Mean Corpuscular HGB Conc 31.9 g/dL (30.0-36.0); Mean Corpuscular Hemoglobin 29.9 pg (28.0-34.0); Mean Corpuscular Volume 93.5 fl (81-99); Mean Platelet Volume 10.9 fL (7.4-10.4); Monocytes # 0.5 10^3/uL (0.2-0.9); Monocytes % 6.3 %; Neutrophils # 4.55 10^3/uL (1.8-7.7); Neutrophils % 58.2 %; Nucleated Red Blood Cells % 0 %; Platelet Count 244 10^3/cmm (130-400); Red Blood Count 4.79 10^6/uL (4.1-5.3); Red Cell Distribution Width 13.8 % (12.1-15.1); White Blood Count 7.8 10^3/uL (4.0-10.0)
[2023-04-13 11:33] LABS: Alanine Aminotransferase 8 U/L (0-33); Albumin Level 4.5 g/dL (3.5-5.2); Alkaline Phosphatase 80 U/L (35-105); Aspartate Amino Transferase 19 U/L (0-32); Blood Urea Nitrogen 14 mg/dL (8-23); Calcium 10.1 mg/dL (8.5-10.5); Carbon Dioxide 25 mmol/L (22-29); Chloride 102 mmol/L (98-107); Globulin 2.1 g/dL (1.3-4.6); Glucose 98 mg/dL (65-115); Osmolality Calculated 290 mOsm/kg (285-295); Sodium 140 mmol/L (136-145); Thyroid Stimulating Hormone 1.35 uIU/mL (0.27-4.20); Total Bilirubin 0.8 mg/dL (0.15-1.2); Total Protein 6.6 g/dL (6.6-8.7)
[2023-04-13] MEDS: water for injection-sterile 10 ML 2.1 ML (11:33)
[2023-04-13] MEDS: OLANZapine 10 mg VIAL (11:33)
[2023-04-13 11:44] LABS: Anion Gap 17.3 (5-19); Potassium 4.3 mmol/L (3.5-5.1)
--- NOTE | 2023-04-13 11:55 | ECG_ITS ---
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 Measurements Intervals [place] Rate: 87 P: 61 [place]: 131 QRS: 57 QRSD: 145 T: 11 QT: 436 QTc: 527 Interpretive Statements SINUS RHYTHM POSSIBLE LEFT ATRIAL ENLARGEMENT [-0.1mV P-WAVE IN V1/V2] LEFT BUNDLE BRANCH BLOCK [120+ ms QRS DURATION, 80+ ms Q/S IN V1/V2, 85+ ms R IN I/aVL/V5/V6] Compared to ECG 01/06/2022 21:33:09 Sinus bradycardia no longer present Electronically Signed On 04-13-2023 15:17:04 CDT by Giancarlo Dixon M.D. [id number]
[2023-04-13] MEDS: haloperidol inj 5 mg/mL INJ 1 mL IVP (12:17)
[2023-04-13 12:33] LABS: Procalcitonin 0.07 ng/mL (0-0.5)
[2023-04-13 12:40] LABS: Troponin(5th) Baseline 26 ng/L (0-10)
[2023-04-13 12:49] LABS: Lactic Sepsis W/Reflex 4.5 mmol/L (0.5-2.2)
[2023-04-13 12:52] LABS: Troponin 5 2HR 21.99 ng/L (0-10)
[2023-04-13 12:55] LABS: Troponin 5 2HR Delta -4.01 ABS# (0-10)
[2023-04-13 13:10] LABS: Add Urine Microscopic? YES; Bilirubin Urine Neg (Negative); Blood Urine Neg (Negative); Glucose Urine UA Norm (Normal); Ketones Urine 1+ (Negative); Leukocyte Esterase Urine Negative (Negative); Nitrate Urine Negative (Negative); Protein Urine Trace (Negative); Urine Appearance Clear (CLEAR); Urine Color Yellow (Yellow); Urobilinogen Urine Norm (Negative); pH Urine 6.5 (5-7)
[2023-04-13 13:11] LABS: Bacteria Urine TRACE /hpf; RBC Urine 0-4 /hpf (0-2); WBC Urine 0-4 /hpf (0-5)
[2023-04-13 13:12] LABS: Add Urine Culture? No; Amphetamines Screen Urine Negative (Negative); Barbiturates Screen Urine Negative (Negative); Benzodiazepines Screen Urine Positive (Negative); Cocaine Screen Urine Negative (Negative); Opiate Screen Urine Negative (Negative); PCP Screen Urine Negative (Negative); THC Screen Urine Negative (Negative)
[2023-04-13] MEDS: LORazepam 2 mg/mL INJ 1 mL 1 MG IVP (13:14)
--- NOTE | 2023-04-13 13:16 | P.HP_ITS ---
Providers/Chief Complaint Primary Care Provider: Ish Dumont MD Chief Complaint: ANXIETY History of Present Illness Indira Gzuman is a 82 year old female with a past medical history significant for gout, anxiety, hypertension, hypothyroidism, and GERD who presents to the emergency department with altered mental status via EMS. Patient is severely altered and agitated on evaluation and unable to provide any pertinent history. Information collected from family as well as other providers for collateral information. Family reports patient was herself last night on the phone. This morning daughter received a phone call stating patient was not doing well and felt confused. Daughter went to check on her and patient was found to state that she was not feeling right but was conversational. Daughter called another family member and followed by calling EMS. After EMS arrived daughter noticed patient was shaking with diffuse chills but was awake and interactive during this shaking. After EMS loaded her up followed by ED course and beginning ICU course patient's mentation continued to worsen with her being severely e ncephalopathic and agitated. She is unable to provide any pertinent history. She is exceptionally restless. Family denies any prior similar episodes that they are aware of. Further history cannot be obtained from the patient due to her clinical status. In the ED, patient was found to be severely agitated. She received numerous medications to try to calm her including antipsychotics and benzodiazepines without significant effect. Patient was eventually put in soft restraints for safety. In the ED, patient was found to have elevated blood pressure. She does have a history of hypertension which seems somewhat poorly controlled based on prior vital signs in her system. CBC was largely unremarkable. CMP was largely unremarkable. Lactic acid was elevated to 4.5 which down trended to 3.1 with IV fluids. Troponin was only mildly elevated at 26 with a negative delta troponin. EKG was negative for acute ST changes. Urinalysis was largely unremarkable with some squamous cells as well as +1 ketones. UDS was positive for benzodiazepines. Patient carries a prescription for Xanax. She was also given Ativan in the emergency department. Head CT was negative for acute hemorrhage o r edema. She did have some moderate atrophy and small vessel disease which would not explain her current presentation. Chest x-ray obtained showing minimal patchy opacity in the retrocardiac region which could be atelectasis and/or pneumonia, as well as cardiomegaly. Review of Systems Narrative: Attempted to obtain a complete review of systems but unable to due to to mental status. Medications/Allergies Home Medications Medication Instructions Recorded Confirmed Last Taken Type cyanocobalamin (vitamin B-12) 250 250 mcg PO DAILY 02/17/20 04/13/23 02/17/20 History mcg tablet (Vitamin B-12) apple cider vinegar 500 mg tablet 500 mg PO DAILY 02/19/20 04/13/23 Unknown History multivitamin 1 tab PO DAILY 01/26/22 04/13/23 Unknown History potassium chloride 20 mEq 20 meq PO DAILY PRN WITH LASIX 01/26/22 04/13/23 Unknown History tablet,extended release(part/cryst) allopurinol 300 mg tablet 300 mg PO DAILY #90 tabs 02/14/23 04/13/23 Unknown Rx alprazolam 0.25 mg tablet 0.25 mg PO BID PRN anxiety #30 tabs 02/14/23 04/13/23 Unknown Rx furosemide 40 mg tablet 40 mg PO DAILY PRN edema #90 tabs 02/14/23 04/13/23 Unknown Rx amlodipine 2.5 mg tablet 2.5 mg PO DAILY 04/13/23 04/13/23 Unknown History levothyroxine 88 mcg tablet 88 mcg PO DAILY 04/13/23 04/13/23 Unknown History metoprolol succinate 100 mg 100 mg PO BID 04/13/23 04/13/23 Unknown History tablet,extended release 24 hr pantoprazole 40 mg tablet,delayed 40 mg PO DAILY 04/13/23 04/13/23 Unknown History release trazodone 50 mg tablet 50 mg PO QPM 04/13/23 04/13/23 Unknown History valsartan 80 mg tablet 80 mg PO DAILY 04/13/23 04/13/23 Unknown History Allergies Allergy/AdvReac Type Severity Reaction Status Date / Time diltiazem Allergy Unknown Unknown Verified 04/13/23 11:23 isoniazid Allergy Unknown Unknown Verified 04/13/23 11:23 heart med Allergy Unknown Uncoded 04/13/23 10:51 PFSH Acute PFSH: Medical History (Updated 04/13/23 @ 17:24 by Ish Ferguson MD) Anxiety Bilateral thumb pain Cerumen impaction Congestive heart failure Conjunctivitis Coronary artery disease DM type 2 (diabetes mellitus, type 2) Exposure to influenza GERD (gastroesophageal reflux disease) Gout High pulmonary arterial pressure Hyperlipidemia Hypertension Hypothyroidism Left bundle branch block Mild aortic stenosis Sleep apnea Surgical History (Updated 04/13/23 @ 17:24 by Ish Ferguson MD) History of appendectomy Hx of CABG x 3 vessels Hx of hysterectomy With BLO Hx of tubal ligation Social History Smoking and tobacco status: never smoked Vitals/I&O/Wt Last Vital Signs Pulse 67 04/13/23 10:42 Resp 24 H 04/13/23 10:42 Pulse Ox 98 04/13/23 10:42 O2 Del Method Room Air 04/13/23 10:42 Weight last 48 hrs Weight 81.647 kg Physical Exam Narrative: General: Patient is severely encephalopathic. Restless. Agitated. Soft restraints. Head: Normocephalic. Atraumatic. EOM intact. Neck: No JVD. Cardiovascular: RRR. No gallops. No murmurs. Lungs: No use of accessory muscles, no crackles or wheezes. Skin: No jaundice. No rashes. Abdomen: Normal bowel sounds, abdomen soft and nontender. Extremities: No cyanosis or clubbing. Musculoskeletal: No swollen or erythematous joints. Neurological: Moves all 4 extremities. Data 04/13/23 10:23 04/13/23 10:23 A&P Assessment and plan (1) Altered mental status: Altered mental status Very broad differential Start empiric broad-spectrum antibiotics with vancomycin and meropenem No obvious source of infection on exam No focal neurological deficit Received antipsychotics and benzodiazepines without much effect Monitor airway Start Precedex for severe agitation Neurology consult Soft restraints for safety as needed MR brain as well as CT chest abdomen pelvis if agitation improves to where we could get satisfactory images (2) Hypertension: Hypertensive urgency, blood pressure is markedly elevated Continue Norvasc Continue ARB, formulary alternative Continue Lopressor (3) Anxiety: Continue home Xanax as needed (4) Gout: Continue allopurinol Qualifiers: Gout site: wrist Gout etiology: idiopathic Chronicity: acute Laterality: unspecified laterality Qualified Code(s): M10.039 - Idiopathic gout, unspecified wrist (5) GERD (gastroesophageal reflux disease): Continue PPI (6) Hypothyroidism: TSH within normal limits Continue Synthroid (7) Coronary artery disease: Continue home meds (8) DM type 2 (diabetes mellitus, type 2): Diet controlled Monitor sugars (9) Congestive heart failure: Not overloaded on exam Strict I's and O's (10) Sleep apnea: Obtain VBG Plan DVT prophylaxis: SCD CODE STATUS: Assume full code Attestations Medical Necessity Statement*: Patient presents with severe encephalopathy requiring Precedex for agitation of unclear etiology with expected hospitalization to cross 2 midnights. Critical Care Time: The high probability of a clinically significant, sudden or life threatening deterioration of the patient's neurological system(s) required my full and direct attention, intervention and personal management. The critical care time is as shown. This time is in addition to time spent performing any reported procedures but includes the following: [x] Data and vital sign review and interpretation [x] Patient assessment, examination and intervention [x] Documentation [x] Medication orders and management Critical Care Time (min): 75 Coding Level of Care Code Acute Code for Chg Fwd Diagnoses Altered mental status R41.82 Hypertension I10 Anxiety F41.9 Gout M10.039 Gout site: wrist Gout etiology: idiopathic Chronicity: acute Laterality: unspecified laterality GERD (gastroesophageal reflux disease) K21.9 Hypothyroidism E03.9 Coronary artery disease I25.10 DM type 2 (diabetes mellitus, type 2) E11.9 Congestive heart failure I50.9 Sleep apnea G47.30
[2023-04-13 14:10] LABS: Reflex Lactate Order REFLEX LACTIC ORDERD
[2023-04-13] MEDS: dexmedetomidine 400 MCG in sodium chloride 0.9% (100 ml) 100 ML 14.86 MCG IV (15:53)
[2023-04-13] MEDS: meropenem 1,000 MG in sodium chloride 0.9% (plus) 50 ML 100 MG IV ×2 (15:53→23:03)
[2023-04-13 16:01] LABS: Troponin 5 6HR 33.97 ng/L (0-10)
[2023-04-13 16:02] LABS: Ammonia 23 umol/L (11-51); Lactic Acid level (Lactate) 3.1 mmol/L (0.5-2.2); Troponin 5 6HR Delta 7.97 ng/L (0-12)
[2023-04-13] MEDS: hyDRALAzine 20 mg/mL INJ 1 mL 10 MG IVP (16:03)
[2023-04-13] MEDS: ALPRAZolam 0.5 mg Tablet 0.25 MG PO (16:35)
[2023-04-13] MEDS: trazodone 50 mg Tablet PO (16:36)
--- NOTE | 2023-04-13 18:05 | CTR_ITS ---
PROCEDURE INFORMATION: Exam: CT Chest With Contrast; Diagnostic Exam date and time: 04/13/2023 9:31 PM Age: 82 years old Clinical indication: Other: Unclear source sepsis; Prior surgery; Surgery date: 6+ months; Surgery type: Hysto, tubal, appy, cabg; Additional info: Sepsis of unclear source, eval for infection TECHNIQUE: Imaging protocol: Diagnostic computed tomography of the chest with contrast. Radiation optimization: All CT scans at this facility use at least one of these dose optimization techniques: automated exposure control; mA and/or kV adjustment per patient size (includes targeted exams where dose is matched to clinical indication); or iterative reconstruction. Contrast material: OMNI 350; Contrast volume: 100 ml; Contrast route: INTRAVENOUS (IV); REPORTING DATA: Count of CT and Cardiac NM exams in prior 12 months: This patient has received 0 known CTs and 0 known cardiac nuclear medicine studies in the 12 months prior to the current study. COMPARISON: CR XR chest 1V portable [id number] 04/13/2023 11:12 AM RADIATION DOSE METRICS: Total DLP (mGy-cm): 891.59 FINDINGS: Lungs: Emphysematous changes. Bilateral dependent atelectasis versus minimal infiltrate. Pleural spaces: Unremarkable. No pneumothorax. No pleural effusion. Heart: Cardiomegaly. Coronary arteries: Coronary artery atherosclerotic calcifications. Lymph nodes: Scattered prominent mediastinal lymph nodes measuring up 10 mm, nonspecific. Vasculature: Unremarkable. No aortic aneurysm. Bones/joints: Sternotomy wires. Soft tissues: Unremarkable. PROCEDURE INFORMATION: Exam: CT Abdomen And Pelvis With Contrast Exam date and time: 04/13/2023 9:31 PM Age: 82 years old Clinical indication: Other: Unclear source sepsis; Prior surgery; Surgery date: 6+ months; Surgery type: Hysto, tubal, appy, cabg; Additional info: Sepsis of unclear source, eval for infection TECHNIQUE: Imaging protocol: Computed tomography of the abdomen and pelvis with contrast. Radiation optimization: All CT scans at this facility use at least one of these dose optimization techniques: automated exposure control; mA and/or kV adjustment per patient size (includes targeted exams where dose is matched to clinical indication); or iterative reconstruction. Contrast material: OMNI 350; Contrast volume: 100 ml; Contrast route: INTRAVENOUS (IV); REPORTING DATA: Count of CT and Cardiac NM exams in prior 12 months: This patient has received 0 known CTs and 0 known cardiac nuclear medicine studies in the 12 months prior to the current study. COMPARISON: CT abdomen pelvis w con* [id number] 01/06/2022 9:07 PM RADIATION DOSE METRICS: Total DLP (mGy-cm): 891.59 FINDINGS: Diaphragm: Moderate to large hiatal hernia. Liver: Hepatic steatosis. Gallbladder and bile ducts: Normal. No calcified stones. No ductal dilation. Pancreas: Normal. No ductal dilation. Spleen: Decreased enhancement to the inferior aspect of the spleen suggestive of a splenic infarct, age indeterminate. Adrenal glands: Normal. No mass. Kidneys and ureters: Normal. No hydronephrosis. Stomach and bowel: Diverticulosis without diverticulitis. Appendix: No evidence of appendicitis. Intraperitoneal space: Unremarkable. No free air. No significant fluid collection. Vasculature: Atherosclerotic calcification at the origin of superior mesenteric and bilateral renal arteries with suspected 80-90% luminal narrowing with contrast seen distally. Lymph nodes: Unremarkable. No enlarged lymph nodes. Urinary bladder: Trevizo catheter in the urinary bladder with air presumed iatrogenic. Reproductive: Unremarkable as visualized. Bones/joints: Unremarkable. No acute fracture. Soft tissues: Unremarkable. CT/CT chest abdpel w/*[id number] IMPRESSION: 1. Negative for pulmonary embolus. 2. Cardiomegaly. 3. Coronary artery atherosclerotic calcifications. 4. Emphysematous changes. 5. Bilateral dependent atelectasis versus minimal infiltrate. 6. Sternotomy wires. 7. Scattered prominent mediastinal lymph nodes measuring up 10 mm, nonspecific. IMPRESSION: 1. Negative for acute inflammatory process in the abdomen or pelvis. 2. Hepatic steatosis. 3. Moderate to large hiatal hernia. 4. Diverticulosis without diverticulitis. 5. Trevizo catheter in the urinary bladder with air presumed iatrogenic. 6. Atherosclerotic calcification at the origin of superior mesenteric and bilateral renal arteries with suspected 80-90% luminal narrowing with contrast seen distally. 7. Decreased enhancement to the inferior aspect of the spleen suggestive of a splenic infarct, age indeterminate.
--- NOTE | 2023-04-13 18:08 | P.CONIM_ITS ---
Providers/Reason For Consult Consulting Physician/Specialty*: dr. Rodriguez, ER Reason for Consult*: altered mental status Requesting Physician: Dr. Rodriguez/ Dr. Ferguson Attending Physician: Ish Ferguson MD Primary Care Provider: Ish Dumont MD History of Present Illness History of Present Illness Indira Guzman is a 82 year old woman who is followed by Dr. Dumont and Dr. Romo. She has many comorbidities including diastolic heart failure, gout, coronary disease, diabetes, morbid obesity, pulmonary hypertension, sleep apnea and a variety of complaints over time. She was doing well in October with chronic multiple problems and then suddenly came in in October complaining that she might have amyloidosis because she could not straighten out her right hand. Her last echocardiogram showed LVH and a normal ejection fraction with elevated filling pressures. She has some valvular problems. She is chronically short of breath. Dr. Romo spent an extensive amount of time explaining that she did not have signs of amyloidosis on echocardiogram and that it would not fit her clinical picture. Her daughter lives in [place] and communicates with Dr. Romo by phone. She was brought to the emergency department by EMS who were called by the patient's daughter, Arminda. She had been slightly confused earlier and then found her with her pill tray full of pills that she had not been taking and she was agitated when she got to the ER. Her speech was garbled. It took a moderate amount of how well and Ativan to stop her from screaming loudly and she was highly agitated. Her laboratory studies were unremarkable except for significantly elevated lactate (4.5). Her white count was not elevated. Complete metabolic panel was normal. Her albumin was 4.5 and TSH was normal. Her urine was clear. Her drug screen was appropriately positive for benzodiazepines because she has a prescription for Xanax and received Ativan in the ER. CT scan of the head showed diffuse white matter changes similar to CT of the head performed in 2018. I evaluated the patient in the intensive care unit from 615 through 7: 40 PM. Her daughter Arminda, her daughter from [place] and her sister were present at the bedside. Her sister indicates that the patient is prone to tell the same stories multiple times but other than that everyone agrees that she is very sharp. She is in charge of her own medication. She has been coughing for a week and felt badly enough that she did not want to go to sikh last night when her sister called her. She said she was coughing too much. She called Arminda this morning and said that she was not feeling right and asked her to come over. She could not say what was wrong she just did not feel right. Arminda arrived 15 minutes later to find her sitting in her computer chair looking puzzled and concerned. She was very anxious. Her pill organizer was nearby and she had taken only her morning doses on Monday, Monday and Monday so her evening doses were still there. She was able to communicate with Arminda and could tell her that it was March (after naming all of the months of the year she chose March at the end). She was able to call Arminda by name and recognize her. When EMS arrived they attempted to get her up from the chair and she had diffuse tremor (Arminda describes shaking tremor of both upper extremities) and they practically had to drag her as she did not assist them to get her to the ambulance. On the way here she was tremulous when they were trying to start an IV. She became increasingly agitated. By the time she got to the emergency department she was speaking gibberish. After receiving numerous sedatives and transfer to ICU she has been able to communicate with the nurse and with her family. When they asked her age she said 43 and she was able to say the day of the week to her daughter. She has been moving all 4 extremities quite vigorously. She was screaming loudly in the ER. She he opened her eyes and recognize multiple family members. She was not complaining of visual loss. She has never had any previous problems with confusion of any type. Her daughters are absolutely certain that she had no memory problems at all prior to this. Her daughter who flew in from [place] says that the patient elected to stop taking Xanax cold turkey a year ago but she has been taking it again recently. There is no obvious source of infection by exam but she was started on broad- spectrum antibiotics with vancomycin and meropenem in case of underlying sepsis. There was a minimal patchy opacity in the retrocardiac region that Dr. Suzette Gibson thought could represent atelectasis or pneumonia. That was on a portable film. She has not been febrile. Review of Systems General: Reports: ROS unobtainable due to mental status Narrative: Reportedly she has absolutely no problems with her memory although her sister sa ys she repeats things like stories. The family is very concerned because their father, her first , with metabolic encephalopathy. Const: Denies: fever(s), chills or change in weight Card: Reports: chest pain (Reportedly in route) and dyspnea on exertion Resp: Reports: dyspnea and non-productive cough GI: Denies: nausea or vomiting Neuro: Reports: behavioral changes and seizure-like activity (She had some tremor observed by her daughter); Denies: headache(s) or Slurred speech present Medications/Allergies Home Medications Medication Instructions Recorded Confirmed Last Taken Type cyanocobalamin (vitamin B-12) 250 250 mcg PO DAILY 02/17/20 04/13/23 02/17/20 History mcg tablet (Vitamin B-12) apple cider vinegar 500 mg tablet 500 mg PO DAILY 02/19/20 04/13/23 Unknown History multivitamin 1 tab PO DAILY 01/26/22 04/13/23 Unknown History potassium chloride 20 mEq 20 meq PO DAILY PRN WITH LASIX 01/26/22 04/13/23 Unknown History tablet,extended release(part/cryst) allopurinol 300 mg tablet 300 mg PO DAILY #90 tabs 02/14/23 04/13/23 Unknown Rx alprazolam 0.25 mg tablet 0.25 mg PO BID PRN anxiety #30 tabs 02/14/23 04/13/23 Unknown Rx furosemide 40 mg tablet 40 mg PO DAILY PRN edema #90 tabs 02/14/23 04/13/23 Unknown Rx amlodipine 2.5 mg tablet 2.5 mg PO DAILY 04/13/23 04/13/23 Unknown History levothyroxine 88 mcg tablet 88 mcg PO DAILY 04/13/23 04/13/23 Unknown History metoprolol succinate 100 mg 100 mg PO BID 04/13/23 04/13/23 Unknown History tablet,extended release 24 hr pantoprazole 40 mg tablet,delayed 40 mg PO DAILY 04/13/23 04/13/23 Unknown History release trazodone 50 mg tablet 50 mg PO QPM 04/13/23 04/13/23 Unknown History valsartan 80 mg tablet 80 mg PO DAILY 04/13/23 04/13/23 Unknown History Allergies Allergy/AdvReac Type Severity Reaction Status Date / Time diltiazem Allergy Unknown Unknown Verified 04/13/23 11:23 isoniazid Allergy Unknown Unknown Verified 04/13/23 11:23 heart med Allergy Unknown Uncoded 04/13/23 10:51 Current Medications Generic Name Dose Route Start Last Admin Trade Name Arslan PRN Reason Stop Dose Admin Dexmedetomidine HCl 400 mcg/ 104 mls @ 0 mls/hr 04/13/23 15:00 04/13/23 17:06 Sodium Chloride IV 1.2 mcg/kg/hr .Q0M SO 25.47 mls/hr Titration Protocol Per Protocol Meropenem 1,000 mg/ Sodium 50 mls @ 100 mls/hr 04/13/23 15:30 04/13/23 16:27 Chloride IV Infused Q8H SO Infusion Protocol Trazodone HCl 50 mg 04/13/23 18:00 04/13/23 17:42 Trazodone 50 Mg Tablet PO Not Given QPM SO PFSH Acute PFSH: Medical History (Updated 04/13/23 @ 18:32 by Deepa Byrne MD) Anxiety Bilateral thumb pain Cerumen impaction Congestive heart failure Conjunctivitis Coronary artery disease DM type 2 (diabetes mellitus, type 2) Exposure to influenza GERD (gastroesophageal reflux disease) Gout High pulmonary arterial pressure Hyperlipidemia Hypertension Hypothyroidism Left bundle branch block Mild aortic stenosis Sleep apnea Surgical History (Updated 04/13/23 @ 17:24 by Ish Ferguson MD) History of appendectomy Hx of CABG x 3 vessels Hx of hysterectomy With BLO Hx of tubal ligation Social History Smoking and tobacco status: never smoked Vitals/I&O/Wt Last Vital Signs Temp 96.2 F L 04/13/23 15:20 Pulse 82 04/13/23 15:20 Resp 14 04/13/23 15:20 BP 207/177 04/13/23 13:30 Pulse Ox 91 04/13/23 15:20 O2 Del Method Room Air 04/13/23 15:03 04/13/23 04/13/23 04/13/23 06:59 14:59 22:59 Intake Total 84.132 / 84.132 Output Total 900 / 900 Balance -815.868 / -815.868 Weight last 48 hrs Weight 180 lb Physical Exam Narrative: GENERAL: She was tied down with soft restraints. MENTAL STATUS: She did not respond to loud voice or pinching of the nailbeds with more than twitching. She did not follow commands. Reportedly she was following simple commands earlier observed by the nurse and all 3 daughters. CRANIAL NERVES: Oculocephalic movements intact. Positive corneals. She is managing her secretions without difficulty. MOTOR: Normal tone in the 4 extremities. She is having twitching of the fingers intermittently and spontaneously moving her legs. SENSATION: She withdraws from touch, tickle and nailbed pressure.. COORDINATION: No spontaneous tremor DEEP TENDON REFLEXES: Toes upgoing bilaterally. HEENT: Normocephalic without dysmorphic features. Conjunctivae were not injected and sclerae were nonicteric. No rash NECK: Supple CHEST: Clear to auscultation. CARDIOVASCULAR: The heart sounds were normal without murmur or gallop. Regular rate and rhythm. EXTREMITIES: No rash or deformities Urinary Catheter Management: Trevizo: Cath Placed During This Visit: yes Urinary Catheter Date of Insertion: 04/13/23 Data 04/13/23 10:23 04/13/23 10:23 Micro: Microbiology 04/13/23 13:30 Blood Culture - Preliminary Blood SPECIMEN COLLECTED 04/13/23 13:36 Blood Culture - Preliminary Blood SPECIMEN COLLECTED Other data: CT scan of the head showing diffuse atrophy A&P Assessment and plan (1) Metabolic encephalopathy: Toxic metabolic encephalopathy. She may be postictal. According to the family her confusion was acute and started sometime between last night and this morning and escalated very rapidly. The high lactate on arrival combined with severe encephalopathy could be consistent with postictal state. She does not have any focal findings to suggest stroke, neither motor findings or receptive or expre ssive speech difficulty as she answered questions for family members and nursing staff that indicate comprehension as well as speech. Posterior circulation stroke with involvement of visual martinez cannot be evaluated and posterior stroke may present with encephalopathy but the patient did not complain of visual difficulty to her daughter prior to escalating confusion. The most likely cause of her symptoms is an underlying infection or metabolic disorder not yet identified with encephalopathy. This is most likely reversible. The patient is far too agitated to obtain MRI scan and an EEG would not be useful after all of her sedatives. I would not hesitate to treat her with anticonvulsant therapy and Depacon has the advantage of being intravenous and reducing behavioral problems so that we might be able to back off on sedatives. I would like to be able to minimize the Precedex as she is having some bradycardia with that. If Depacon does not help with her agitation and she may and remains actively agitated at this time, I would be inclined to use a small dose of Zyprexa Zydis. I will keep in touch with the nurse and follow-up. I gave her my cell phone number. Consult Attestations Medical Necessity Statement: Acute profound change in mental status with high likelihood of underlying infection or serious illness. Time Spent in Patient Care: Greater than 35 minutes Coding Level of Care Code 99499 Diagnoses Metabolic encephalopathy G93.41
[2023-04-13 18:19] LABS: Base Excess VBG 1.5 mmol/L (-3.0-3.0); Blood Gas Operator Identificat GD; Blood Gas Sample Site Not specified; Blood Gas Sample Type Venous; HCO3 VBG 23.1 mmol/L (24-28); Oxygen Device ROOM AIR; PCO2 VBG 27.6 mmHg (41-51); Venous Blood Gas Hematocrit 40.9 % (37-47); pH VBG 7.53 (7.32-7.42)
[2023-04-13 19:10] LABS: C Reactive Protein 3.7 mg/L (0.0-4.9)
[2023-04-13 19:24] LABS: Glucose Point of Care 155 mg/dL (70-110)
[2023-04-13] MEDS: dexmedetomidine 400 MCG in sodium chloride 0.9% (100 ml) 100 ML 25.47 MCG IV (19:41)
[2023-04-13] MEDS: valproic acid inj 500 MG in sodium chloride 0.9% 50 ML 55 MG IV (19:59)
[2023-04-13 20:19] LABS: Adenovirus Not Detected (NOT DETECT); Chlamydia Pneumoniae Not Detected (NOT DETECT); Coronavirus 229E,HKU1,NL63,OC4 Not Detected (NOT DETECT); Human Metapneumovirus Not Detected (NOT DETECT); Human Rhinovirus/Enterovirus Not Detected (NOT DETECT); Influenza A Not Detected (NOT DETECT); Influenza A H1 Not Detected (NOT DETECT); Influenza A H1-2009 Not Detected (NOT DETECT); Influenza A H3 Not Detected (NOT DETECT); Influenza B Not Detected (NOT DETECT); Mycoplasma Pneumoniae Not Detected (NOT DETECT); Parainfluenza Virus Type 1 Not Detected (NOT DETECT); Parainfluenza Virus Type 2 Not Detected (NOT DETECT); Parainfluenza Virus Type 3 Not Detected (NOT DETECT); Parainfluenza Virus Type 4 Not Detected (NOT DETECT); Respiratory Syncytial Virus A Not Detected (NOT DETECT); Respiratory Syncytial Virus B Not Detected (NOT DETECT); SARS-COV-2 Not Detected (NOT DETECT)
[2023-04-13] MEDS: iohexol 350 mg/mL 500 mL Btl (per mL) IV (21:34)
[2023-04-14] VITALS (74 sets, daily range): BP systolic 72–209; BP diastolic 43–113; PULSE 40–83; RESP 3–32; TEMP 33.6–36.9; O2SAT 90–98
[2023-04-14] MEDS: hyDRALAzine 20 mg/mL INJ 1 mL 10 MG IVP (00:34)
[2023-04-14 04:01] LABS: Glucose Point of Care 111 mg/dL (70-110)
[2023-04-14 04:20] LABS: Basophils # 0.1 10^3/uL (0.0-0.1); Basophils % 0.5 %; Eosinophils % 0.2 %; Hematocrit 42.2 % (37.0-47.0); Hemoglobin 13.8 g/dL (11.5-15.3); Lymphocytes # 1.4 10^3/uL (0.8-4.8); Lymphocytes % 12.7 %; Mean Corpuscular HGB Conc 32.7 g/dL (30.0-36.0); Mean Corpuscular Hemoglobin 30.4 pg (28.0-34.0); Mean Platelet Volume 10.3 fL (7.4-10.4); Monocytes # 0.7 10^3/uL (0.2-0.9); Monocytes % 6.8 %; Neutrophils # 8.66 10^3/uL (1.8-7.7); Neutrophils % 79.1 %; Nucleated Red Blood Cells % 0 %; Platelet Count 203 10^3/cmm (130-400); Red Blood Count 4.54 10^6/uL (4.1-5.3); Red Cell Distribution Width 13.8 % (12.1-15.1); White Blood Count 10.9 10^3/uL (4.0-10.0)
[2023-04-14 04:42] LABS: Alanine Aminotransferase 9 U/L (0-33); Albumin Level 4.2 g/dL (3.5-5.2); Alkaline Phosphatase 76 U/L (35-105); Aspartate Amino Transferase 23 U/L (0-32); Blood Urea Nitrogen 11 mg/dL (8-23); Carbon Dioxide 27 mmol/L (22-29); Chloride 101 mmol/L (98-107); Globulin 2.7 g/dL (1.3-4.6); Glucose 116 mg/dL (65-115); Magnesium 1.8 mg/dL (1.7-2.3); Osmolality Calculated 288 mOsm/kg (285-295); Phosphorus 3.2 mg/dL (2.5-4.5); Sodium 139 mmol/L (136-145); Total Bilirubin 0.8 mg/dL (0.15-1.2); Total Protein 6.9 g/dL (6.6-8.7)
[2023-04-14 04:50] LABS: Procalcitonin 0.41 ng/mL (0-0.5)
--- NOTE | 2023-04-14 06:12 | MR_ITS ---
WS: [id number] MRI HEAD WITHOUT CONTRAST TECHNIQUE: Sagittal T1, T2 axial, T2 axial FLAIR, axial and coronal T1 images, axial susceptibility w eighted imaging, axial diffusion weighted images, and coronal T2 images were obtained. CLINICAL INFORMATION: Altered mental status, eval for stroke COMPARISON: CT 04/14/2023 FINDINGS: Some images degraded by motion. Fast imaging performed. A few tiny foci of restricted diffusion compatible with acute ischemia within the LEFT hemisphere. 5 mm focus in the frontal lobe laterally and 2 tiny punctate foci within the LEFT occipital lobe installers mechanical iorly. Additional punctate focus in the LEFT parietal lobe near the vertex. 1 or 2 additional equivocal tiny punctate foci within the LEFT frontal parietal junction near the cor iris. Mild small vessel changes. Moderate parenchymal volume loss worse in the frontal lobes. Normal installers mechanical ior fossa. Normal vascular flow voids at the skull base. No extra-axial fluid collections. Paranasal sinuses and mastoid air cells are well aerated. Mild bulging the cervical spine at C3-C4 and C4-C5. N o hemosiderin on the susceptibility-weighted images. Normal optic chiasm and pituitary infundibulum. IMPRESSION: Some images are to be motion. Fast imaging performed. 1. A few tiny punctate foci of restricted diffusion within the LEFT hemisphere involving the LEFT fr ontal, occipital, and parietal lobes described above. Findings suspicious for embolic infarcts. Consi kan further evaluation with ultrasound carotid or CTA 2. No mass effect or midline shift. 3. No hemosiderin. 4. Minimal small vessel changes with moderate frontal parenchymal volume loss. Notified Ish Ferguson MD at 04/14/2023 4:39 PM.
--- NOTE | 2023-04-14 07:35 | P.PN_ITS ---
Subjective Subjective: I discussed with the nurse last evening that the plan would be to administer IV Depacon and then attempt to wean Precedex. That was done and she was able to get off of Precedex at midnight and has had no further episodes of agitation. This morning she was oriented and able to follow commands this morning although she was still confused. She tells me she is sleepy and she does not want to wak e up. She told me she is 33 years old and that she is at home. She was not fully awake. Vitals/I&O/Wt Last Vital Signs Temp 96.0 F L 04/13/23 20:00 Pulse 40 L 04/14/23 06:45 Resp 15 04/14/23 06:45 BP 129/68 04/14/23 06:45 Pulse Ox 98 04/14/23 06:45 O2 Del Method Room Air 04/14/23 04:30 O2 Flow Rate 2 04/14/23 02:50 04/13/23 04/14/23 04/14/23 22:59 06:59 14:59 Intake Total 266.725 / 266.725 68.471 / 335.196 Output Total 1400 / 1400 600 / 2000 Balance -1133.275 / -1133.275 -531.529 / -1664.804 Weight last 48 hrs Weight 165 lb 5.547 oz Weight 180 lb Physical Exam Narrative: I tried moderately hard to awaken her but I did not pinch her or turn on the lights. She was able to manage a sip of water, clear her throat and talk with me briefly. As mentioned above, she told me she was 33 years old and she guessed that she was at home. She open her eyes briefly, looked around and agreed that she was at the hospital. She opened her eyes briefly and follow my finger. Facial movements symmetric. She could manage a small sip of water without choking. She moves all 4 extremities well. Cardiac: S1 and S2 normal without murmur or gallop Chest clear to auscultation Urinary Catheter Management: Trevizo: Cath Placed During This Visit: yes Reason for Continuing Indwelling Catheter: Accurate Measurement of Urinary Output in Critically Ill Patients Urinary Catheter Date of Insertion: 04/13/23 Data 04/14/23 03:53 04/14/23 03:53 Micro: Microbiology 04/13/23 13:30 Blood Culture - Preliminary Blood SPECIMEN COLLECTED 04/13/23 13:36 Blood Culture - Preliminary Blood SPECIMEN COLLECTED A&P Assessment and plan (1) Metabolic encephalopathy: 82-year-old woman with multiple severe comorbidities who presents with sudden onset of change in mental status. She responded to 1 dose of Depacon and she presented with a lactic acidosis that was unexplained, leaving concern for unobserved seizure and postictal state. Plan to start her on Depacon 3 times a day IV and get an EEG at neuro[facility]iences when she is able, either in the hospital or after discharge. I suspect underlying dementia although the family is absolutely sure that her memory is sharp. Off Precedex hoping she is more able to cooperate today. (2) Anxiety: Attestations Medical Necessity Statement*: Ongoing profound encephalopathy requiring ICU stay and further evaluation Coding Level of Care Code Acute Code for [facility] Diagnoses Metabolic encephalopathy G93.41 Anxiety F41.9
--- NOTE | 2023-04-14 07:43 | CTR_ITS ---
PROCEDURE INFORMATION: Exam: CT Head Without Contrast Exam date and time: 04/14/2023 3:53 PM Age: 82 years old Clinical indication: Other: Encephalopathy TECHNIQUE: Imaging protocol: Computed tomography of the head without contrast. Radiation optimization: All CT scans at this facility use at least one of these dose optimization techniques: automated exposure control; mA and/or kV adjustment per patient size (includes targeted exams where dose is matched to clinical indication); or iterative reconstruction. REPORTING DATA: Count of CT and Cardiac NM exams in prior 12 months: This patient has received 2 known CTs and 0 known cardiac nuclear medicine studies in the 12 months prior to the current study. COMPARISON: CT head wo con* [id number] 04/13/2023 11:36 AM RADIATION DOSE METRICS: Total DLP (mGy-cm): 1073.18 FINDINGS: Brain: No hemorrhage. No edema. Mild diffuse cerebral atrophy and sequela of chronic small vessel ischemic disease. No mass effect. Cerebral ventricles: No ventriculomegaly. Paranasal sinuses: Visualized sinuses are unremarkable. No fluid levels. Mastoid air cells: Visualized mastoid air cells are well aerated. Bones/joints: Unremarkable. No acute fracture. Soft tissues: Unremarkable. CT/CT head wo con* [id number] IMPRESSION: No acute intracranial abnormality.
[2023-04-14] MEDS: meropenem 1,000 MG in sodium chloride 0.9% (plus) 50 ML 100 MG IV ×3 (08:42→23:16)
[2023-04-14] MEDS: valproic acid inj 500 MG in sodium chloride 0.9% 50 ML 55 MG IV (09:07)
--- NOTE | 2023-04-14 10:32 | USCV_ITS ---
Indira Guzman Age: 82 Gender: F : 1940 Exam Date: 04/14/2023 11:59 Ordering Phys: Ish Ferguson MD Technologist: Tima Hernandez Exam Location: [facility] [place] Indication: bradycardia BP: 91 / 57 HR: 67 Rhythm: Sinus Technical Quality: Adequate MEASUREMENTS (Male / Female) Normal Values 2D ECHO LVOT Diameter 2.0 cm LV Ejection Fraction MOD 2C 60.8 % LV Ejection Fraction 2C AL 61.0 % LA Diameter 3.5 cm LA Width 4.1 cm LA Height 5.0 cm RA Width 3.8 cm RA Height 4.6 cm Aorta at Sinotubular Diameter 1.7 cm IVC Diameter 1.5 cm M-MODE Aortic Annulus Diameter 2.0 cm LA Ao Ratio MM 1.6 MV E Point Septal Separation 1.3 cm DOPPLER Right Atrial Pressure 3.0 mmHg FINDINGS Left Ventricle Normal left ventricular cavity size and systolic function. Left ventricular ejection fraction is estimated at 65 %. Although no diagnostic regional wall motion abnormality could be identified, this possibility cannot be completely excluded based on the study. Right Ventricle Right ventricle not well visualized. Probably normal right ventricular size and systolic function. Right Atrium Right atrium not well visualized. Left Atrium Moderately to severely increased left atrial size. Mitral Valve Severe mitral annular calcification. Thickened mitral valve. Aortic Valve Aortic valve not well visualized. Tricuspid Valve Tricuspid valve not well visualized. Pulmonic Valve Pulmonic valve not well visualized. Pericardium No pericardial effusion. Aorta Normal size aortic root and proximal ascending aorta. IVC Normal IVC dimension with >50% respiratory change of the inferior vena cava. CONCLUSIONS 1. This is a technically very difficult study. 2. Normal left ventricular cavity size and systolic function. Left ventricular ejection fraction is estimated at 65 %. Although no diagnostic regional wall motion abnormality could be identified, this possibility cannot be completely excluded based on the study. 3. No change in left ventricular systolic function when compared to study dated 02/16/2023. Francia Bloom MD (Electronically Signed) Final Date: 14 April 2023 14:37 S
[2023-04-14] MEDS: sodium chloride 0.9% 1,000 ML 999 ML IV (10:34)
[2023-04-14 11:13] LABS: ABG PCO2 39.8 mmHg (35-45); ABG PH Result 7.42 (7.35-7.45); Arterial Blood Gas Hematocrit 37.8 % (37-47); Base Excess ABG 1.5 mmol/L (-2.0-2.0); Blood Gas Allen Test Pos; Blood Gas Operator Identificat CAK; Blood Gas Sample Site Radial, right; Blood Gas Sample Type Arterial; Carboxyhemoglobin 1.4 %THgb (0.4-20.1); HGB O2 Sat 97.1 % (95-100); Ionized Calcium Level - ABG 1.2 mmol/L (1.1-1.4); Methemoglobin 0.2 % (0.4-1.5); Oxygen Device ROOM AIR; Oxygen Saturation ABG 98.7; PO2 ABG 84.6 mmHg (80.0-100.0); Potassium Level - ABG 3.3 mmol/L (3.5-5.0); Total Hemoglobin 12.3 g/dL (12-16)
[2023-04-14 11:41] LABS: Troponin(5th) Baseline 37 ng/L (0-10)
[2023-04-14] MEDS: sodium chloride 0.9% 1,000 ML 50 ML IV (12:20)
--- NOTE | 2023-04-14 12:27 | ECG_ITS ---
[facility] Test Date: 2023-04-14 Pat Name: Indira Guzman Department: Room: ICU07 Gender: Female Debubblizer: : 1940 Requested By: Ish Roth Order Number: [id number] Maria Guadalupe MD: Giancarlo Dixon M.D. Measurements Intervals [place] Rate: 49 P: 43 [place]: 164 QRS: 18 QRSD: 151 T: 97 QT: 620 QTc: 560 Interpretive Statements SINUS BRADYCARDIA LEFT BUNDLE BRANCH BLOCK [120+ ms QRS DURATION, 80+ ms Q/S IN V1/V2, 85+ ms R IN I/aVL/V5/V6] PROLONGED QT INTERVAL CRITICAL TEST RESULT Compared to ECG 04/13/2023 13:11:52 Prolonged QT interval now present Sinus rhythm no longer present Electronically Signed On 04-14-2023 16:17:48 CDT by Giancarlo Dixon M.D. [id number]
[2023-04-14 12:36] LABS: Cortisol Random 14.84 ug/dL (2.47-19.5); Free T4 Free Thyroxine 1.94 ng/dL (0.82-1.77)
[2023-04-14 12:56] LABS: D Dimer 0.93 ug/mIFEU (0-0.59)
[2023-04-14 13:00] LABS: Troponin 5 2HR 40.79 ng/L (0-10)
[2023-04-14 13:04] LABS: RPR w(Moniotor) w/REFL Titer NON-REACTIVE (NON-REACTIVE)
[2023-04-14 13:06] LABS: Troponin 5 2HR Delta 3.79 ABS# (0-10)
--- NOTE | 2023-04-14 15:28 | PM.PN ---
Subjective Subjective: CAT scan performed overnight showed no acute findings. Precedex turned off due to bradycardic issues. Neurology had seen and put on Depakote. This morning she is lethargic but arouses. She is unable to provide any history due to her persistent altered mental status. Patient later found to be hypothermic, started external warming. Later in the day, patient becoming more awake. At that time, she denies fevers, chills, nausea or emesis. Vitals/I&O/Wt Last Vital Signs Temp 95.4 F L 04/14/23 14:00 Pulse 52 L 04/14/23 14:00 Resp 18 04/14/23 14:00 BP 125/87 04/14/23 14:00 Pulse Ox 94 04/14/23 14:00 O2 Del Method Room Air 04/14/23 04:30 O2 Flow Rate 2 04/14/23 02:50 04/14/23 04/14/23 04/14/23 06:59 14:59 22:59 Intake Total 68.471 / 853.560 3492.921 / 1107.921 Output Total 600 / 2000 Balance -531.529 / -4497.425 7305.921 / 1107.921 Weight last 48 hrs Weight 75 kg Weight 81.647 kg Physical Exam Narrative: General: Patient is lethargic. Head: Normocephalic. Atraumatic. Neck: No JVD. Cardiovascular: RRR. No gallops. No murmurs. Lungs: Breath sounds diminished bilateral bases, no use of accessory muscles, no crackles or wheezes. Skin: No jaundice. No rashes. Abdomen: Hypoactive bowel sounds, abdomen Extremities: No cyanosis or clubbing. Musculoskeletal: No swollen or erythematous joints. Neurological: No myoclonus. Urinary Catheter Management: Trevizo: Cath Placed During This Visit: yes Reason for Continuing Indwelling Catheter: Accurate Measurement of Urinary Output in Critically Ill Patients Urinary Catheter Date of Insertion: 04/13/23 Data 04/14/23 03:53 04/14/23 03:53 Micro: Microbiology 04/13/23 18:20 MRSA Culture - Final Nose 04/13/23 13:30 Blood Culture - Preliminary Blood NEGATIVE TO DATE 04/13/23 13:36 Blood Culture - Preliminary Blood NEGATIVE TO DATE A&P Assessment and plan (1) Altered mental status: Differential remains broad, likely multifactorial now CT chest abdomen and pelvis showed no acute findings, some incidental findings noted Mentation showing some waxing and waning, overall seems to be showing some improvement throughout the course of today Allow the sedating medications she she received yesterday to wear off Started on Depakote, given her degree of sedation this afternoon, will hold the next dose to monitor Discontinue Precedex due to bradycardia Neurology following, appreciate recommendations Avoid restraints much as possible, likely to cause worsening delirium MRI this afternoon if she remains stable Head CT as well Continue supportive care Continue broad-spectrum antibiotics Patient found to have mild hypothermia Continue external rewarming (2) Hypertension: Patient currently hypotensive, borderline shock as well as with bradycardia Given 1 L of IV fluid bolus without significant improvement Started Levophed but blood pressure significantly improved Continue to monitor closely, may need additional fluids and ordered vasopressors Holding home antihypertensives Bradycardia suspected to be secondary (3) Anxiety: Continue home Xanax (4) Congestive heart failure: Not overloaded on exam Monitor fluid status daily (5) DM type 2 (diabetes mellitus, type 2): Monitor blood glucose (6) Coronary artery disease: Continue home meds (7) GERD (gastroesophageal reflux disease): PPI (8) Hypothyroidism: Continue Synthroid (9) Sleep apnea: ABG reviewed, no acute findings Plan DVT prophylaxis: SCD CODE STATUS: Full code Attestations Medical Necessity Statement*: The high probability of a clinically significant, sudden or life threatening deterioration of the patient's circulatory, neurologic system(s) required my full and direct attention, intervention and personal management. The critical care time is as shown. This time is in addition to time spent performing any reported procedures but includes the following: [x] Data and vital sign review and interpretation [x] Patient assessment, examination and intervention [x] Documentation [x] Medication orders and management Critical Care Time: Critical Care Time (min): 40 Coding Level of Care Code Acute Code for Chg Fwd Diagnoses Altered mental status R41.82 Hypertension I10 Anxiety F41.9 Congestive heart failure I50.9 DM type 2 (diabetes mellitus, type 2) E11.9 Coronary artery disease I25.10 GERD (gastroesophageal reflux disease) K21.9 Hypothyroidism E03.9 Sleep apnea G47.30
--- NOTE | 2023-04-14 16:27 | ECG_ITS ---
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 Measurements Intervals [place] Rate: 59 P: 17 IN: 126 QRS: 18 QRSD: 132 T: 139 QT: 496 QTc: 495 Interpretive Statements SINUS BRADYCARDIA LEFT BUNDLE BRANCH BLOCK [120+ ms QRS DURATION, 80+ ms Q/S IN V1/V2, 85+ ms R IN I/aVL/V5/V6] Compared to ECG 04/14/2023 10:32:46 Prolonged QT interval no longer present Electronically Signed On 04-14-2023 22:45:28 CDT by Giancarlo Dixon M.D. [id number]
--- NOTE | 2023-04-14 16:52 | USR_ITS ---
PROCEDURE INFORMATION: Exam: US Duplex Bilateral Extracranial Arteries; Complete; Carotid Arteries Exam date and time: 04/14/2023 5:13 PM Age: 82 years old Clinical indication: Other: Stroke; Additional info: Acute stroke TECHNIQUE: Imaging protocol: Real-time duplex ultrasound scan of the bilateral extracranial arteries combining reyes scale, color Doppler and spectral waveform analysis with image documentation. Complete exam. Exam focused on the carotid arteries. COMPARISON: CT head wo con* [id number] 04/14/2023 3:53 PM FINDINGS: Right common carotid artery: Unremarkable. No occlusion or stenosis. Waveforms are normal. Right internal carotid artery: 50-69% stenosis based on elevated PSV measurement of 158 cm/sec Waveforms are normal. Right ICA/CCA ratio: 1.4. Within normal limits. Right external carotid artery: Moderate stenosis in the origin. Right vertebral artery: Unremarkable. Antegrade flow. Left common carotid artery: Unremarkable. No occlusion or stenosis. Waveforms are normal. Left internal carotid artery: 50-69% stenosis based on elevated PSV measurement of 166 cm/sec. No occlusion or stenosis. Waveforms are normal. Left ICA/CCA ratio: 1.4. Within normal limits. Left external carotid artery: Moderate stenosis in the origin. Left vertebral artery: Unremarkable. Antegrade flow. US/CV carotid duplex BI* [id number] IMPRESSION: 50-69% stenosis of both proximal internal carotid arteries. There is also moderate stenosis at the origin of the external carotid arteries. REFERENCES: SRU CRITERIA. The degree of internal carotid artery stenosis is based on criteria defined by the Society of Radiologists in Ultrasound (SRU). Normal is no stenosis. Mild is less than 50% stenosis. Moderate is 50-69% stenosis. Severe is greater than 69% stenosis to near occlusion. Near occlusion is a markedly narrowed lumen. Total occlusion is no detectable patent lumen.
[2023-04-14] MEDS: trazodone 50 mg Tablet PO (18:19)
[2023-04-14] MEDS: hyDRALAzine 20 mg/mL INJ 1 mL 5 MG IVP (18:50)
[2023-04-14] MEDS: acetaminophen 325 mg Tablet 650 MG PO (18:53)
[2023-04-15] VITALS (29 sets, daily range): BP systolic 151–219; BP diastolic 62–114; PULSE 67–96; RESP 14–41; TEMP 36.1–36.9; O2SAT 91–97
[2023-04-15] MEDS: blistex lip oint 7 gm Tube 1 APPLIC TOPICAL (01:23)
[2023-04-15 04:34] LABS: Basophils # 0.1 10^3/uL (0.0-0.1); Basophils % 0.6 %; Eosinophils # 0.2 10^3/uL (0.0-0.8); Eosinophils % 1.7 %; Hematocrit 39.6 % (37.0-47.0); Hemoglobin 12.9 g/dL (11.5-15.3); Lymphocytes # 1.3 10^3/uL (0.8-4.8); Mean Corpuscular HGB Conc 32.6 g/dL (30.0-36.0); Mean Corpuscular Volume 95.2 fl (81-99); Mean Platelet Volume 10.4 fL (7.4-10.4); Monocytes # 0.6 10^3/uL (0.2-0.9); Monocytes % 5.8 %; Neutrophils # 8.34 10^3/uL (1.8-7.7); Neutrophils % 79.2 %; Nucleated Red Blood Cells % 0 %; Platelet Count 196 10^3/cmm (130-400); Red Blood Count 4.16 10^6/uL (4.1-5.3); Red Cell Distribution Width 14.3 % (12.1-15.1); White Blood Count 10.5 10^3/uL (4.0-10.0)
[2023-04-15 05:09] LABS: Procalcitonin 0.36 ng/mL (0-0.5)
[2023-04-15 05:21] LABS: Alanine Aminotransferase 8 U/L (0-33); Albumin Level 3.6 g/dL (3.5-5.2); Alkaline Phosphatase 67 U/L (35-105); Anion Gap 13.6 (5-19); Aspartate Amino Transferase 20 U/L (0-32); Blood Urea Nitrogen 9 mg/dL (8-23); Calcium 9.1 mg/dL (8.5-10.5); Carbon Dioxide 26 mmol/L (22-29); Chloride 105 mmol/L (98-107); Globulin 2.2 g/dL (1.3-4.6); Glucose 90 mg/dL (65-115); Magnesium 1.6 mg/dL (1.7-2.3); Osmolality Calculated 290 mOsm/kg (285-295); Phosphorus 3.2 mg/dL (2.5-4.5); Potassium 3.6 mmol/L (3.5-5.1); Sodium 141 mmol/L (136-145); Total Bilirubin 0.8 mg/dL (0.15-1.2); Total Protein 5.8 g/dL (6.6-8.7)
[2023-04-15] MEDS: levothyroxine 88 mcg Tablet PO (08:18)
[2023-04-15] MEDS: pantoprazole DR 40 mg Tablet PO (08:18)
[2023-04-15] MEDS: allopurinol 300 mg Tablet PO (08:18)
[2023-04-15] MEDS: meropenem 1,000 MG in sodium chloride 0.9% (plus) 50 ML 100 MG IV (08:18)
[2023-04-15] MEDS: aspirin 81 mg EC Tablet PO (10:11)
[2023-04-15] MEDS: amlodipine 5 mg Tablet 2.5 MG PO ×2 (10:12→20:51)
[2023-04-15] MEDS: metoprolol succinate ER (24 HR) 100 mg Tablet PO ×2 (10:12→18:20)
[2023-04-15] MEDS: hyDRALAzine 20 mg/mL INJ 1 mL 10 MG IVP (12:25)
[2023-04-15] MEDS: acetaminophen 325 mg Tablet 650 MG PO (13:27)
--- NOTE | 2023-04-15 13:54 | PM.PN ---
Subjective Subjective: The patient became much more alert after she was given Depacon IV and yesterday I increased the dose to Depacon 500 mg 3 times a day. She is awake and alert this morning and recognizes me. She and her daughter informed me that she has had a stroke and that I just do not know about it and that she did not have a seizure. Vitals/I&O/Wt Last Vital Signs Temp 98 F 04/15/23 12:45 Pulse 74 04/15/23 12:45 Resp 19 H 04/15/23 12:45 BP 170/79 04/15/23 12:45 Pulse Ox 94 04/15/23 12:45 O2 Del Method Room Air 04/15/23 12:45 O2 Flow Rate 2 04/15/23 11:00 04/14/23 04/15/23 04/15/23 22:59 06:59 14:59 Intake Total 170 / 1277.921 50 / 1784.424 0591 / 1100 Output Total 250 / 250 350 / 600 Balance -80 / 1027.921 -300 / 843.724 8172 / 1100 Weight last 48 hrs Weight 165 lb 5.547 oz Physical Exam Narrative: She was awake and alert with clear speech. Cranial nerves unremarkable. Moving all 4 extremities well. Her MRI scan images and report were reviewed from 04/14/2023. She has several tiny punctate regions of increased intensity by diffusion-weighted imaging and FLAIR that could represent tiny embolic infarcts. Doppler ultrasound of the carotids shows 50 to 69% stenosis of the proximal internal carotid arteries. Urinary Catheter Management: Trevizo: Cath Placed During This Visit: yes Reason for Continuing Indwelling Catheter: Accurate Measurement of Urinary Output in Critically Ill Patients Urinary Catheter Date of Insertion: 04/13/23 Data 04/15/23 04:04 04/15/23 04:04 Micro: Microbiology 04/13/23 18:20 MRSA Culture - Final Nose 04/13/23 13:30 Blood Culture - Preliminary Blood NEGATIVE TO DATE 04/13/23 13:36 Blood Culture - Preliminary Blood NEGATIVE TO DATE A&P Assessment and plan (1) Metabolic encephalopathy: This patient presented with acute profound encephalopathy with no focal findings. She had neither expressive nor receptive aphasia as far as could be determined. She has MRI evidence of several tiny punctate lesions that appear to be acute ischemic and possibly embolic infarcts. These tiny lesions are not sufficient to explain her presenting profound encephalopathy and lactic acidosis which are suspicious for an unobserved seizure and postictal state. His family is quite committed to the idea that she had a stroke and Dr. Ferguson has informed them of this and they are been on acting accordingly. Aspirin, clopidogrel and CT angiogram would be appropriate. Her carotid Doppler would suggest that she has moderate carotid stenosis but this may be overestimated by the Doppler test and CT angiogram would be appropriate. Dr. Ferguson may refer the patient to a vascular surgeon on discharge if the family is in favor of. Please contact me to discuss this patient if you have any further issues or questions. (2) Acute ischemic multifocal multiple vascular territories stroke: Attestations Medical Necessity Statement*: Labile blood pressure. Profound encephalopathy now resolved. Coding Level of Care Code Acute Code for [facility] Diagnoses Metabolic encephalopathy G93.41 Acute ischemic multifocal multiple vascular territories stroke I63.89
--- NOTE | 2023-04-15 14:00 | PC.NURSE ---
Cardiac strip: unable to print rhythm strip at this time.
[2023-04-15] MEDS: VALSARTAN 80 MG TABLET 1 EACH PO ×2 (14:45→22:06)
--- NOTE | 2023-04-15 15:34 | P.PN_ITS ---
Subjective Subjective: Patient is much more awake and alert this morning. She denies any acute complaints. Her family is bedside very supportive in her care. Discussed MRI results. Discussed ultrasound results. Medications: Reviewed: Yes Vitals/I&O/Wt Last Vital Signs Temp 97 F L 04/15/23 13:30 Pulse 74 04/15/23 15:00 Resp 34 H 04/15/23 15:00 BP 189/77 04/15/23 15:00 Pulse Ox 93 04/15/23 15:00 O2 Del Method Room Air 04/15/23 15:00 O2 Flow Rate 2 04/15/23 11:00 04/15/23 04/15/23 04/15/23 06:59 14:59 22:59 Intake Total 50 / 2509.992 2197 / 1100 Output Total 350 / 600 Balance -300 / 866.061 3757 / 1100 Weight last 48 hrs Weight 75 kg Physical Exam Narrative: General: Patient is awake and alert. Very pleasant.. Head: Normocephalic. Atraumatic. Neck: No JVD. Cardiovascular: RRR. No gallops. No murmurs. Markedly hypertensive. Lungs: Breath sounds diminished bilateral bases, no use of accessory muscles, no crackles or wheezes. Skin: No jaundice. No rashes. Abdomen: Hypoactive bowel sounds, abdomen soft. Nontender. Extremities: No cyanosis or clubbing. Musculoskeletal: No swollen or erythematous joints. Neurological: No myoclonus. Moves all 4 extremities. No focal deficit noted. Urinary Catheter Management: Trevizo: Cath Placed During This Visit: yes Reason for Continuing Indwelling Catheter: Accurate Measurement of Urinary Output in Critically Ill Patients Urinary Catheter Date of Insertion: 04/13/23 Data 04/15/23 04:04 04/15/23 04:04 Micro: Microbiology 04/13/23 18:20 MRSA Culture - Final Nose 04/13/23 13:30 Blood Culture - Preliminary Blood NEGATIVE TO DATE 04/13/23 13:36 Blood Culture - Preliminary Blood NEGATIVE TO DATE A&P Assessment and plan (1) Altered mental status: Mentation markedly improved MRI with evidence of acute stroke, discussed with radiologist with the culprit likely her left carotid plaque Carotid Doppler ultrasound reviewed, 50 to 69% bilaterally stenosed Suspect presentation is still multifactorial with stroke only being part of the presentation Holding/avoiding sedating medications Discontinue antibiotics Neurology following, appreciate recommendations Patient/family want to discuss among self the treatment options regarding her carotids Start high intensity statin Continue aspirin Plan to start Plavix (2) Hypertension: Hypertensive urgency Blood pressure has been labile since admission, currently markedly elevated Discussed with family, plan to restart home medications today and monitor response Goal to drop blood pressure around 25 to 30% today, then eventually obtain herbert l BP (3) Anxiety: Continue home Xanax PRN (4) Congestive heart failure: Not overloaded on exam Monitor fluid status daily (5) DM type 2 (diabetes mellitus, type 2): Monitor blood glucose (6) Coronary artery disease: Continue home meds (7) GERD (gastroesophageal reflux disease): PPI (8) Hypothyroidism: Continue Synthroid (9) Sleep apnea: Plan DVT prophylaxis: SCD CODE STATUS: Full code Attestations Medical Necessity Statement*: Patient requires ongoing hospitalization for therapy evaluation Coding Level of Care Code Acute Code for Chg Fwd Diagnoses Altered mental status R41.82 Hypertension I10 Anxiety F41.9 Congestive heart failure I50.9 DM type 2 (diabetes mellitus, type 2) E11.9 Coronary artery disease I25.10 GERD (gastroesophageal reflux disease) K21.9 Hypothyroidism E03.9 Sleep apnea G47.30
[2023-04-15] MEDS: clopidogrel 75 mg Tablet PO (18:19)
[2023-04-15] MEDS: trazodone 50 mg Tablet PO (18:20)
--- NOTE | 2023-04-15 19:00 | PC.NURSE ---
Shift summary: Pt is very pleasant, slightly anxious , though she will deny it. She has been resting in bed throughout the shift. She has worked with PT , OT and Speech therapy today. HEr BP has been the issue today, it has been elevated throughout the shift, it has ranged from 170/79 to 219/101. Her home BP meds restarted, Hydralazine IVP PRN admin, see MAR. She has remained on room air throughout the shift. She has remained afebrile. She has had 2000ml of urine output. She has picked at her meals today, stating she was just not hungry. Family has been in attendance all day.
[2023-04-15] MEDS: atorvastatin 40 mg Tablet 80 MG PO (20:50)
[2023-04-16] VITALS (31 sets, daily range): BP systolic 137–218; BP diastolic 65–128; PULSE 56–79; RESP 19–33; TEMP 36–36.6; O2SAT 89–97
[2023-04-16] MEDS: hyDRALAzine 20 mg/mL INJ 1 mL 10 MG IVP ×2 (01:08→07:34)
[2023-04-16 04:42] LABS: Basophils # 0.1 10^3/uL (0.0-0.1); Basophils % 0.8 %; Eosinophils # 0.3 10^3/uL (0.0-0.8); Eosinophils % 2.9 %; Hemoglobin 13.6 g/dL (11.5-15.3); Lymphocytes # 1.8 10^3/uL (0.8-4.8); Lymphocytes % 17.8 %; Mean Corpuscular HGB Conc 31.6 g/dL (30.0-36.0); Mean Corpuscular Volume 94.7 fl (81-99); Mean Platelet Volume 10.3 fL (7.4-10.4); Monocytes # 0.8 10^3/uL (0.2-0.9); Monocytes % 8.4 %; Neutrophils % 68.9 %; Nucleated Red Blood Cells % 0 %; Platelet Count 198 10^3/cmm (130-400); Red Blood Count 4.54 10^6/uL (4.1-5.3); Red Cell Distribution Width 14.3 % (12.1-15.1); White Blood Count 9.9 10^3/uL (4.0-10.0)
[2023-04-16 05:07] LABS: Albumin Level 3.3 g/dL (3.5-5.2); Blood Urea Nitrogen 7 mg/dL (8-23); Calcium 9.6 mg/dL (8.5-10.5); Carbon Dioxide 26 mmol/L (22-29); Chloride 104 mmol/L (98-107); Glucose 130 mg/dL (65-115); Magnesium 1.8 mg/dL (1.7-2.3); Phosphorus 1.3 mg/dL (2.5-4.5); Sodium 140 mmol/L (136-145)
[2023-04-16 05:10] LABS: Anion Gap 13.3 (5-19); Potassium 3.3 mmol/L (3.5-5.1)
--- NOTE | 2023-04-16 08:23 | CTR_ITS ---
PROCEDURE INFORMATION: Exam: CTA Neck With Contrast Exam date and time: 04/16/2023 8:58 AM Age: 82 years old Clinical indication: Other: Evaluate carotid stenosis TECHNIQUE: Imaging protocol: Computed tomographic angiography of the neck with contrast. 3D rendering (Not supervised by radiologist): MIP and/or 3D reconstructed images were created by the technologist. Radiation optimization: All CT scans at this facility use at least one of these dose optimization techniques: automated exposure control; mA and/or kV adjustment per patient size (includes targeted exams where dose is matched to clinical indication); or iterative reconstruction. Contrast material: OMNI 350; Contrast volume: 100 ml; Contrast route: INTRAVENOUS (IV); REPORTING DATA: Count of CT and Cardiac NM exams in prior 12 months: This patient has received 3 known CTs and 0 known cardiac nuclear medicine studies in the 12 months prior to the current study. COMPARISON: US CV carotid duplex BI* [id number] 04/14/2023 5:13 PM RADIATION DOSE METRICS: Total DLP (mGy-cm): 354.51 FINDINGS: Right common carotid artery: There is mild calcific plaque without stenosis in the right mid common carotid artery. Right internal carotid artery: There is moderate calcific plaque with less than 50% stenosis at the origin of the right internal carotid artery. There is mild calcific plaque in the cavernous portion of the right internal carotid artery without significant stenosis. Right external carotid artery: There is marked calcific plaque with less than 50% stenosis at the origin of the right external carotid artery. Left common carotid artery: There is mild calcific plaque without stenosis at the origin of the left common carotid artery. There is focal luminal irregularity and near occlusion of the proximal left common carotid artery visible on axial series 4, image 67, coronal series 6, image 122 and sagittal series 7, image 80. Left internal carotid artery: There is mild calcific plaque with less than 50% stenosis of the left internal carotid artery origin. There is mild calcific plaque in the cavernous portion of the left internal carotid artery without significant stenosis. Left external carotid artery: There is moderate calcific plaque with less than 50% stenosis at the origin of the left external carotid artery. Right vertebral artery: No stenosis. No dissection or occlusion. Left vertebral artery: No stenosis. No dissection or occlusion. Right subclavian artery: Mild calcific plaque without stenosis at the right subclavian artery origin. Left subclavian artery: Web-like stenosis at the left subclavian artery origin. The degree of stenosis cannot be accurately calculated due to the morphology of the stenosis. Pulmonary arteries: Visible portions of pulmonary arteries are unremarkable. Other arteries: Central portions of the cerebral arteries are unremarkable. Mastoid air cells: The mastoid air cells are clear. Paranasal sinuses: The paranasal sinuses are clear. Lymph nodes: There are mildly prominent nonspecific paratracheal lymph nodes in the visible portion of the upper mediastinum. Soft tissues: Soft tissues in the neck are unremarkable. Bones/joints: There is moderate disc and facet degeneration in the cervical spine. Lungs: There is mild patchy air trapping in the lung apices. 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 CT/CT angio neck [id number] IMPRESSION: 1. Focal luminal irregularity and near occlusion of proximal left common carotid artery. There is no calcific plaque at the site. Findings may represent soft plaque, nonocclusive thrombus, or intimal tear without dissection. 2. Calcific plaque with less than 50% stenosis of the internal and external carotid artery origins bilaterally. 3. 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 The degree of stenosis cannot be accurately assessed due to its morphology. 4. Incidental findings above. REFERENCES: NASCET CRITERIA. The degree of stenosis in the cervical segment of the internal carotid artery is based on NASCET criteria. Normal is no stenosis. Mild is less than 50% stenosis. Moderate is 50-69% stenosis. Severe is 70% to 99% stenosis. Total occlusion is no detectable patent lumen.
[2023-04-16] MEDS: VALSARTAN 80 MG TABLET 1 EACH PO (08:42)
--- NOTE | 2023-04-16 08:42 | PC.OT ---
Due to OT weekend protocol, evaluation will be addressed on Monday.
[2023-04-16] MEDS: pantoprazole DR 40 mg Tablet PO (08:43)
[2023-04-16] MEDS: clopidogrel 75 mg Tablet PO (08:43)
[2023-04-16] MEDS: metoprolol succinate ER (24 HR) 100 mg Tablet PO (08:43)
[2023-04-16] MEDS: levothyroxine 88 mcg Tablet PO (08:43)
[2023-04-16] MEDS: aspirin 81 mg EC Tablet PO (08:43)
[2023-04-16] MEDS: allopurinol 300 mg Tablet PO (08:43)
[2023-04-16] MEDS: iohexol 350 mg/mL 500 mL Btl (per mL) IV (09:06)
[2023-04-16] MEDS: phosphorus 250 mg Tablet PO (09:33)
--- NOTE | 2023-04-16 11:29 | PC.SOCIAL ---
IMM update IMM updated with patient. Verbalized an understanding. Copy Pg 2 provided. Initialled, dated, timed, and placed in chart.
--- NOTE | 2023-04-16 15:45 | PC.NURSE ---
Report called to [facility] in [place], [place]. Report given to Pj Au RN. All questions answered.
[2023-04-16] MEDS: ALPRAZolam 0.5 mg Tablet 0.25 MG PO (16:03)
--- NOTE | 2023-04-16 16:28 | PC.NURSE ---
Ambulance crew here. Pt transferred to their care.
--- NOTE | 2023-04-17 17:58 | PM.DCS ---
Discharge Providers Date of Admission: 04/13/23 13:17 Date of Discharge: April 16, 2023 Attending Provider at Admission: Ish Ferguson MD Attending Provider at Discharge: Ish Ferguson MD Consults: Neurology Primary Care Provider: Ish Dumont MD Diagnoses at Discharge Discharge Diagnosis (1) Altered mental status: Status: Acute (2) Hypertension: Status: Acute (3) Anxiety: Status: Acute (4) Congestive heart failure: Status: Acute (5) DM type 2 (diabetes mellitus, type 2): Status: Acute (6) Coronary artery disease: Status: Acute (7) GERD (gastroesophageal reflux disease): Status: Acute (8) Hypothyroidism: Status: Acute (9) Sleep apnea: Status: Acute Reason for Visit Reason for Visit: ANXIETY Hospital Course Hospital Course Indira Guzman is an 82-year-old female with a past medical history significant for anxiety, coronary artery disease, gout, hypertension, hypothyroidism, and sleep apnea who presents to the emergency department via EMS with altered mental status that occurred prior to arrival. Initial etiology of altered mental status was unclear. Neurology consulted and followed. She was found to have significant acute toxic encephalopathy secondary to medication side effects which resolved as medications wore off. This encephalopathy was in addition to an acute stroke in vascular territory of the left internal carotid system. 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 Patient discussed with neurointerventional provider with [facility] in [facility] who agree to have patient transferred for procedural evaluation of critical lesions in the setting of acute stroke. Patient transferred in stable condition. Physical Exam Narrative: General: Patient is awake and alert.? Very pleasant. Head:? Normocephalic. Atraumatic. Neck: No JVD. Cardiovascular: RRR. No gallops. No murmurs.? Markedly hypertensive. Lungs: Breath sounds diminished bilateral bases, no use of accessory muscles, no crackles or wheezes. Skin: No jaundice. No rashes. Abdomen: Hypoactive bowel sounds, abdomen soft.? Nontender. Extremities: No cyanosis or clubbing. Musculoskeletal: No swollen or erythematous joints. Neurological: No myoclonus.? Moves all 4 extremities.? No focal deficit. Urinary Catheter Management: Trevizo: Cath Placed During This Visit: yes, but has since been removed by the nurse Reason for Continuing Indwelling Catheter: Accurate Measurement of Urinary Output in Critically Ill Patients Urinary Catheter Date of Insertion: 04/13/23 Date Urinary Catheter Removed: 04/16/23 Time Urinary Catheter Discontinued: 14:45 Discharge Data Studies Completed and Pending Completed Studies During Hospitalization Category Date Time Status CT chest abdomen pelvis [CT chest abdpel w/*[id number] Cat Scan 04/13/23 18:05 Completed ] Routine CT head wo con* [id number] Routine Cat Scan 04/14/23 07:[address] head wo con* [id number] Urgent Cat Scan 04/13/23 11:04 Completed CTA neck [CT angio neck 00777] Routine Cat Scan 04/16/23 08:23 Completed XR chest 1V portable [id number] Urgent Exams 04/13/23 11:05 Completed MR head wo con* [id number] Stat MRI 04/14/23 06:12 Completed CV. echo limited [id number] Routine Ultrasound 04/14/23 10:32 Completed US carotid duplex bilateral [CV carotid duplex BI* Ultrasound 04/14/23 16:52 Completed [id number]] Stat Pending at discharge Category Date Time Status Blood Culture Stat Lab 04/13/23 13:30 Results Heavy Metals Panel (Venous) Routine Lab 04/14/23 12:25 Received Radiology Impressions Chest/Abdomen/Pelvis CT 04/13/23 18:05 IMPRESSION: 1. Negative for pulmonary embolus. 2. Cardiomegaly. 3. Coronary artery atherosclerotic calcifications. 4. Emphysematous changes. 5. Bilateral dependent atelectasis versus minimal infiltrate. 6. Sternotomy wires. 7. Scattered prominent mediastinal lymph nodes measuring up 10 mm, nonspecific. IMPRESSION: 1. Negative for acute inflammatory process in the abdomen or pelvis. 2. Hepatic steatosis. 3. Moderate to large hiatal hernia. 4. Diverticulosis without diverticulitis. 5. Trevizo catheter in the urinary bladder with air presumed iatrogenic. 6. Atherosclerotic calcification at the origin of superior mesenteric and bilateral renal arteries with suspected 80-90% luminal narrowing with contrast seen distally. 7. Decreased enhancement to the inferior aspect of the spleen suggestive of a splenic infarct, age indeterminate. Head CT 04/14/23 07:43 IMPRESSION: No acute intracranial abnormality. Carotid Doppler Study 04/14/23 16:52 IMPRESSION: 50-69% stenosis of both proximal internal carotid arteries. There is also moderate stenosis at the origin of the external carotid arteries. REFERENCES: SRU CRITERIA. The degree of internal carotid artery stenosis is based on criteria defined by the Society of Radiologists in Ultrasound (SRU). Normal is no stenosis. Mild is less than 50% stenosis. Moderate is 50-69% stenosis. Severe is greater than 69% stenosis to near occlusion. Near occlusion is a markedly narrowed lumen. Total occlusion is no detectable patent lumen. Neck CTA 04/16/23 08:23 IMPRESSION: 1. Focal luminal irregularity and near occlusion of proximal left common carotid artery. There is no calcific plaque at the site. Findings may represent soft plaque, nonocclusive thrombus, or intimal tear without dissection. 2. Calcific plaque with less than 50% stenosis of the internal and external carotid artery origins bilaterally. 3. 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 The degree of stenosis cannot be accurately assessed due to its morphology. 4. Incidental findings above. REFERENCES: NASCET CRITERIA. The degree of stenosis in the cervical segment of the internal carotid artery is based on NASCET criteria. Normal is no stenosis. Mild is less than 50% stenosis. Moderate is 50-69% stenosis. Severe is 70% to 99% stenosis. Total occlusion is no detectable patent lumen. ADDENDUM: 04/16/23 1012 THIS REPORT CONTAINS FINDINGS THAT MAY BE CRITICAL TO PATIENT CARE. The findings were verbally communicated via telephone conference with Ish Ferguson at 10:09 AM CDT on 04/16/2023. The findings were acknowledged and understood. Laboratory Results WBC 9.9 10^3/uL (4.0-10.0) 04/16/23 04:11 RBC 4.54 10^6/uL (4.1-5.3) 04/16/23 04:11 Hgb 13.6 g/dL (11.5-15.3) 04/16/23 04:11 Hct 43.0 % (37.0-47.0) 04/16/23 04:11 MCV 94.7 fl (81-99) 04/16/23 04:11 MCH 30.0 pg (28.0-34.0) 04/16/23 04:11 MCHC 31.6 g/dL (30.0-36.0) 04/16/23 04:11 RDW 14.3 % (12.1-15.1) 04/16/23 04:11 Plt Count 198 10^3/cmm (130-400) 04/16/23 04:11 MPV 10.3 fL (7.4-10.4) 04/16/23 04:11 Neut % (Auto) 68.9 % 04/16/23 04:11 Lymph % (Auto) 17.8 % 04/16/23 04:11 [place] % (Auto) 8.4 % 04/16/23 04:11 Eos % (Auto) 2.9 % 04/16/23 04:11 Baso % (Auto) 0.8 % 04/16/23 04:11 Neut # (Auto) 6.80 10^3/uL (1.8-7.7) 04/16/23 04:11 Lymph # (Auto) 1.8 10^3/uL (0.8-4.8) 04/16/23 04:11 [place] # (Auto) 0.8 10^3/uL (0.2-0.9) 04/16/23 04:11 Eos # (Auto) 0.3 10^3/uL (0.0-0.8) 04/16/23 04:11 Baso # (Auto) 0.1 10^3/uL (0.0-0.1) 04/16/23 04:11 Nucleated RBC % (auto) 0 % 04/16/23 04:11 Nucleated RBCs # 0.0 /100WBC 04/16/23 04:11 D-Dimer 0.93 ug/mIFEU (0-0.59) H 04/14/23 12:25 Specimen Type Arterial 04/14/23 11:01 Sample Site Radial, right 04/14/23 11:01 ABG pH 7.42 (7.35-7.45) 04/14/23 11:01 ABG pCO2 39.8 mmHg (35-45) 04/14/23 11:01 ABG pO2 84.6 mmHg (80.0-100.0) 04/14/23 11:01 ABG HCO3 26.0 mmol/L (22-26) 04/14/23 11:01 ABG O2 Saturation 98.7 04/14/23 11:01 ABG Base Excess 1.5 mmol/L (-2.0-2.0) 04/14/23 11:01 Nino Test Pos 04/14/23 11:01 VBG pH 7.53 (7.32-7.42) H 04/13/23 16:00 VBG pCO2 27.6 mmHg (41-51) L 04/13/23 16:00 VBG pO2 140.0 mmHg (25-40) H 04/13/23 16:00 VBG HCO3 23.1 mmol/L (24-28) L 04/13/23 16:00 VBG Base Excess 1.5 mmol/L (-3.0-3.0) 04/13/23 16:00 VBG Hematocrit 40.9 % (37-47) 04/13/23 16:00 A-a O2 Gradient 2.0 mmHg (5-10) L 04/14/23 11:01 Hematocrit 37.8 % (37-47) 04/14/23 11:01 Hgb O2 Saturation 97.1 % (95-100) 04/14/23 11:01 Carboxyhemoglobin 1.4 %THgb (0.4-20.1) 04/14/23 11:01 Methemoglobin 0.2 % (0.4-1.5) L 04/14/23 11:01 Total Hemoglobin 12.3 g/dL (12-16) 04/14/23 11:01 Sodium 142.0 mmol/L (131-143) 04/14/23 11:01 Potassium 3.3 mmol/L (3.5-5.0) L 04/14/23 11:01 Glucose 83.0 mg/dL (70-115) 04/14/23 11:01 Ionized Calcium 1.2 mmol/L (1.1-1.4) 04/14/23 11:01 O2 Delivery Device Room air 04/14/23 11:01 FiO2 21.0 % 04/14/23 11:01 Smelting Engineer ID Cak 04/14/23 11:01 Sodium 140 mmol/L (136-145) 04/16/23 04:11 Potassium 3.3 mmol/L (3.5-5.1) L 04/16/23 04:11 Chloride 104 mmol/L (98-107) 04/16/23 04:11 Carbon Dioxide 26 mmol/L (22-29) 04/16/23 04:11 Anion Gap 13.3 (5-19) 04/16/23 04:11 BUN 7 mg/dL (8-23) L 04/16/23 04:11 Creatinine 0.6 mg/dL (0.5-0.9) 04/16/23 04:11 GFR Calculation Not Reportable 04/16/23 04:11 Glucose 130 mg/dL (65-115) H 04/16/23 04:11 POC Glucose 111 mg/dL (70-110) H 04/14/23 03:57 Calculated Osmolality 290 mOsm/kg (285-295) 04/15/23 04:04 Lactic Acid 4.5 mmol/L (0.5-2.2) H* 04/13/23 12:20 Lactic Acid (Sepsis) 3.1 mmol/L (0.5-2.2) H 04/13/23 15:35 Calcium 9.6 mg/dL (8.5-10.5) 04/16/23 04:11 Phosphorus 1.3 mg/dL (2.5-4.5) L 04/16/23 04:11 Magnesium 1.8 mg/dL (1.7-2.3) 04/16/23 04:11 Total Bilirubin 0.8 mg/dL (0.15-1.2) 04/15/23 04:04 AST 20 U/L (0-32) 04/15/23 04:04 ALT 8 U/L (0-33) 04/15/23 04:04 Alkaline Phosphatase 67 U/L (35-105) 04/15/23 04:04 Ammonia 23 umol/L (11-51) 04/13/23 15:35 Troponin T Baseline 37 ng/L (0-10) H 04/14/23 10:39 Troponin T 120 Minute 40.79 ng/L (0-10) H 04/14/23 12:25 Delta Troponin T 3.79 ABS# (0-10) 04/14/23 12:25 Troponin T Hi Sens 6Hr 43.90 ng/L (0-10) H 04/14/23 16:58 Troponin T Hi Sens 6Hr Delta 6.90 ng/L (0-12) 04/14/23 16:58 C-Reactive Protein 3.7 mg/L (0.0-4.9) 04/13/23 15:35 Total Protein 5.8 g/dL (6.6-8.7) L 04/15/23 04:04 Albumin 3.3 g/dL (3.5-5.2) L 04/16/23 04:11 Globulin 2.2 g/dL (1.3-4.6) 04/15/23 04:04 Procalcitonin 0.36 ng/mL (0-0.5) 04/15/23 04:04 TSH 1.35 uIU/mL (0.27-4.20) 04/13/23 10:23 Free T4 1.94 ng/dL (0.82-1.77) H 04/14/23 03:53 Random Cortisol 14.84 ug/dL (2.47-19.5) 04/14/23 03:53 Urine Color Yellow (Yellow) 04/13/23 12:56 Urine Appearance Clear (CLEAR) 04/13/23 12:56 Urine pH 6.5 (5-7) 04/13/23 12:56 Ur Specific [place] 1.010 (1.005-1.030) 04/13/23 12:56 Urine Protein Trace (Negative) 04/13/23 12:56 Urine Glucose (UA) Norm (Normal) 04/13/23 12:56 Urine Ketones 1+ (Negative) H 04/13/23 12:56 Urine Blood Neg (Negative) 04/13/23 12:56 Urine Nitrate Negative (Negative) 04/13/23 12:56 Urine Bilirubin Neg (Negative) 04/13/23 12:56 Urine Urobilinogen Norm mg/dL (Negative) 04/13/23 12:56 Ur Leukocyte Esterase Negative (Negative) 04/13/23 12:56 Urine RBC 0-4 /hpf (0-2) H 04/13/23 12:56 Urine WBC 0-4 /hpf (0-5) H 04/13/23 12:56 Ur Squamous Epith Cells 10-15 /hpf (0-5) H 04/13/23 12:56 Amorphous Sediment Not Reportable 04/13/23 12:56 Urine Bacteria Trace /hpf (NONE) 04/13/23 12:56 Hyaline Casts 5-10 /lpf H 04/13/23 12:56 Urine Opiates Screen Negative ng/mL (Negative) 04/13/23 12:56 Ur Barbiturates Screen Negative ng/mL (Negative) 04/13/23 12:56 Ur Phencyclidine Scrn Negative ng/mL (Negative) 04/13/23 12:56 Ur Amphetamines Screen Negative ng/mL (Negative) 04/13/23 12:56 U Benzodiazepines Scrn Positive ng/mL (Negative) H 04/13/23 12:56 Urine Cocaine Screen Negative ng/mL (Negative) 04/13/23 12:56 U Marijuana (THC) Screen Negative ng/mL (Negative) 04/13/23 12:56 RPR w/Rflx to Titer Non-reactive (NON-REACTIVE) 04/13/23 15:35 Coronavirus 229E (PCR) Not detected (NOT DETECT) 04/13/23 18:20 SARS-CoV-2 (PCR) Not detected (NOT DETECT) 04/13/23 18:20 Procedures Performed None Vitals Last Vital Signs Temp 97.8 F 04/16/23 08:00 Pulse 69 04/16/23 16:29 Resp 19 H 04/16/23 16:29 BP 145/78 04/16/23 16:29 Pulse Ox 93 04/16/23 14:30 O2 Del Method Room Air 04/16/23 14:30 O2 Flow Rate 2 04/15/23 11:00 Discharge Plan Discharge Patient Disposition: Xfer Short-Term Hosp Condition: Stable Prescriptions: No Action apple cider vinegar 500 mg tablet 500 mg PO DAILY multivitamin Tablet 1 tab PO DAILY furosemide 40 mg tablet 40 mg PO DAILY PRN (Reason: edema) Qty: 90 3RF alprazolam 0.25 mg tablet 0.25 mg PO BID PRN (Reason: anxiety) Qty: 30 0RF allopurinol 300 mg tablet 300 mg PO DAILY Qty: 90 3RF Hold Instructions: Doctor's Order cyanocobalamin (vitamin B-12) [Vitamin B-12] 250 mcg Tablet 250 mcg PO DAILY potassium chloride 20 mEq tablet,ER particles/crystals 20 meq PO DAILY PRN (Reason: WITH LASIX) trazodone 50 mg tablet 50 mg PO QPM metoprolol succinate 100 mg tablet extended release 24 hr 100 mg PO BID valsartan 80 mg tablet 80 mg PO DAILY amlodipine 2.5 mg tablet 2.5 mg PO DAILY levothyroxine 88 mcg tablet 88 mcg PO DAILY pantoprazole 40 mg tablet,delayed release (DR/EC) 40 mg PO DAILY Discharge Orders: Discharge Order (Routine); Ordered 04/17/23 Ordered By: Ish Ferguson Referrals: Ish Dumont MD [Primary Care Provider] - Discharge Attestations Time Spent in Discharge Care*: greater than 30 min Quality Metrics Clinical Quality Measures [ No reported AMI, CVA or VTE this stay] Coding Level of Care Code Acute Code for Chg Fwd Diagnoses Altered mental status R41.82 Hypertension I10 Anxiety F41.9 Congestive heart failure I50.9 DM type 2 (diabetes mellitus, type 2) E11.9 Coronary artery disease I25.10 GERD (gastroesophageal reflux disease) K21.9 Hypothyroidism E03.9 Sleep apnea G47.30
[2023-04-18 17:03] LABS: Lead Blood 1.4 mcg/dL (<3.5)
[2023-04-19 10:25] LABS: Arsenic Blood <10 mcg/L (<23); Mercury Blood <5 mcg/L (<OR=10)
== END 2023-04-16 16:30 | disposition short-term general hospital (02) | DRG 64 ==
LOC: ER 13:16 → ICU 13:43
PROVIDERS: Physician Assistant; Admitting Provider Internal Medicine; Emergency Provider Emergency Medicine; PCP Family Medicine; Visit Provider Internal Medicine
DX: I63.232 Cerebral infarction due to unspecified occlusion or stenosis of left carotid arteries (principal); G92.8 Other toxic encephalopathy; G93.49 Other encephalopathy; I50.32 Chronic diastolic (congestive) heart failure; T50.905A Adverse effect of unspecified drugs, medicaments and biological substances, initial encounter; F41.9 Anxiety disorder, unspecified; I25.10 Atherosclerotic heart disease of native coronary artery without angina pectoris; Z95.1 Presence of aortocoronary bypass graft; M10.9 Gout, unspecified; I11.0 Hypertensive heart disease with heart failure; E03.9 Hypothyroidism, unspecified; G47.30 Sleep apnea, unspecified; Z79.891 Long term (current) use of opiate analgesic; R45.1 Restlessness and agitation; E78.5 Hyperlipidemia, unspecified; I35.0 Nonrheumatic aortic (valve) stenosis; I16.0 Hypertensive urgency; K21.9 Gastro-esophageal reflux disease without esophagitis; E11.9 Type 2 diabetes mellitus without complications; I27.20 Pulmonary hypertension, unspecified; E66.01 Morbid (severe) obesity due to excess calories; Z68.37 Body mass index [BMI] 37.0-37.9, adult; R68.0 Hypothermia, not associated with low environmental temperature
CPT/HCPCS: 36415; 36416; 36600; 51702; 70450; 70498; 70551; 71045; 71260; 74177; 80051; 80053; 80069; 80306; 81001; 82140; 82175; 82330; 82533; 82803; 82805; 82962; 83605; 83655; 83735; 83825; 84100; 84145; 84439; 84443; 84484; 85025; 85378; 86140; 86592; 87040; 87635; 87641; 92523; 92610; 93005; 93308; 93880; 96376; 97110; 97116; 97162; 99291; 99292; J0360; J1630; J2060; J2185; J3490; J7030; J7060; Q9967

== ENCOUNTER → 2023-05-05 11:06 | Outpatient (BNVA) | payer MEDICARE, OTHER, SELFPAY | PROVIDERS: PCP Family Medicine; Visit Provider Internal Medicine Cardiovascular Disease | DX: R26.81 Unsteadiness on feet (principal); I63.89 Other cerebral infarction; I27.21 Secondary pulmonary arterial hypertension; I35.0 Nonrheumatic aortic (valve) stenosis; I44.7 Left bundle-branch block, unspecified; G47.30 Sleep apnea, unspecified; I50.9 Heart failure, unspecified; E11.9 Type 2 diabetes mellitus without complications; I25.10 Atherosclerotic heart disease of native coronary artery without angina pectoris; E78.5 Hyperlipidemia, unspecified; I10 Essential (primary) hypertension | CPT/HCPCS: 99214 ==

== ENCOUNTER 2023-07-20 15:11 | Emergency (ER) | payer MEDICARE, OTHER, SELFPAY ==
[2023-07-20] VITALS (7 sets, daily range): BP systolic 164–183; BP diastolic 68–104; PULSE 65–70; RESP 16–18; O2SAT 93–96; BMI 35.6
--- NOTE | 2023-07-20 15:18 | W.ED.GIBLEED ---
HPI - GI Bleed General: Chief complaint: GI Bleed Stated complaint: bloos stool Time Seen by Provider: 07/20/23 15:17 History of Present Illness: 83-year-old female presents to the emergency department with complaints of black stool. She states this been ongoing for the previous 3 weeks. She states that In March 2023 she had a stroke she is currently taking Plavix. She states she has been doing her rehabilitation secondary to her stroke. She states that she does have intermittent dizziness and has felt increased weakness and fatigue over the previous 1 week. She denies chest pain or shortness of breath. She denies nausea or vomiting at present. She denies abdominal pain. She states she does not take any iron supplementation. Associated symptoms: Reports malaise Review of Systems General: Reports: 10 or more systems reviewed and unremarkable except in HPI and below Const: Reports: fatigue and malaise GI: Reports: melena Neuro: Reports: dizziness [facility] ED PFSH: Medical History (Updated 07/20/23 @ 18:50 by Pancho Sanderson MD) Anxiety Bilateral thumb pain Cerumen impaction Congestive heart failure Conjunctivitis Coronary artery disease DM type 2 (diabetes mellitus, type 2) Exposure to influenza GERD (gastroesophageal reflux disease) Gout High pulmonary arterial pressure Hyperlipidemia Hypertension Hypothyroidism Left bundle branch block Mild aortic stenosis Sleep apnea Surgical History History of appendectomy Hx of CABG x 3 vessels Hx of hysterectomy With BLO Hx of tubal ligation Social History (Updated 04/25/23 @ 19:29 by Ish Dumont MD) Smoking and tobacco/nicotine status: never used tobacco/nicotine Alcohol intake: never Substance/Drug Use: never Additional social history: Goes to [facility] in Marital status: / Marital status details: 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 Vital signs reviewed as documented. HENMT: Normocephalic, atraumatic. Extermal ears with normal appearance without drainage. Nose without drainage, normal appearance. Mucus membranes moist. Neck is supple, No jugular venous distension, trachea is midline, no appreciable carotid bruits. No lymphadenopathy. No meningeal signs. Flexion, extension and lateral rotation is without pain. Eyes: Pupils are equal, round, reactive to light and accommodation. No scleral icterus. Extra-ocular movement are intact. Thorax is symmetrical and with equal rise and fall with respirations. Resp: Lungs are clear to auscultation. No wheezes, rales, crackles or ronchi at present. Cardio: Regular rate and rhythm. Positive S1, S2. No appreciable murmurs, rubs or gallops. GI: Abdominal exam reveals normal bowel sounds to all quadrants. No organomegaly. No obvious palpable masses noted. No hepatomegally appreciated. Soft, nontender to palpation. Extremity: Extremities are non-edematous and both femoral and pedal pulses are 2+ and equal bilaterally. Moves all extremities well, sensation in all extremities. Neuro: Alert and oriented x4, person, place, time and situation. Cranial nerves II through XII are grossly intact, there is no focal neurological deficits that I can appreciate at present. Motor strength in the upper and lower extremities are equal and bilateral 5/5. Psych: Cooperative, calm, normal thought process, appropriate judgment. Skin: No lesions, rashes. No gross abnormalities noted. Back: Symmetrical, no obvious deformity, No CVA tenderness Course Vital Signs: Vital signs: Vital Signs Pulse Rate 67 07/20/23 18:00 Respiratory Rate 18 07/20/23 18:00 Blood Pressure 179/81 07/20/23 18:00 Pulse Oximetry 96 07/20/23 18:00 MDM - GI Bleed Medical Decision Making Physical exam completed and documented, I will obtain laboratory evaluation to include a CBC, CMP, lipase, urinalysis, and a CT scan of the patient's abdomen pelvis to evaluate for possible differential diagnosis of bowel obstruction, incarcerated hernia, ischemic colitis, constipation. I will provide the patient IV access and IV fluid as well as a CT scan abdomen pelvis with contrast for evaluation for possible colitis, diverticulosis, diverticulitis, GI bleed. Medical Records I reviewed the patient's medical records. Lab Data I reviewed the patient's lab results. 07/20/23 15:34 07/20/23 15:34 Radiology Impressions Abdomen/Pelvis CT 07/20/23 15:21 IMPRESSION: 1. No acute findings. 2. Diverticulosis of the colon without diverticulitis. 3. 1.5 cm oval density along the posterior right diaphragm. This could represent infolding of the diaphragm. A reactive lymph node is not excluded. Laboratory Results WBC 7.45 10^3/uL (3.29-11.43) 07/20/23 15:34 RBC 3.81 10^6/uL (3.85-5.65) L 07/20/23 15:34 Hgb 11.60 g/dL (11.27-16.99) 07/20/23 15:34 Hct 36.5 % (36-47) 07/20/23 15:34 MCV 95.8 fl (85-98) 07/20/23 15:34 MCH 30.4 pg (27-33) 07/20/23 15:34 MCHC 31.8 g/dL (30-55) 07/20/23 15:34 RDW 17.0 % (12.1-15.1) H 07/20/23 15:34 Plt Count 217 10^3/cmm (157-399) 07/20/23 15:34 MPV 9.8 fL (7.4-10.4) 07/20/23 15:34 Neut % (Auto) 60.2 % 07/20/23 15:34 Lymph % (Auto) 27.0 % 07/20/23 15:34 [place] % (Auto) 7.2 % 07/20/23 15:34 Eos % (Auto) 4.3 % 07/20/23 15:34 Baso % (Auto) 0.9 % 07/20/23 15:34 Neut # (Auto) 4.48 10^3/uL (1.8-7.7) 07/20/23 15:34 Lymph # (Auto) 2.0 10^3/uL (0.8-4.8) 07/20/23 15:34 [place] # (Auto) 0.5 10^3/uL (0.2-0.9) 07/20/23 15:34 Eos # (Auto) 0.3 10^3/uL (0.0-0.8) 07/20/23 15:34 Baso # (Auto) 0.1 10^3/uL (0.0-0.1) 07/20/23 15:34 Nucleated RBC % (auto) 0 % 07/20/23 15:34 Nucleated RBCs # 0.0 /100WBC 07/20/23 15:34 PT 13.20 SECONDS (12.1-14.9) 07/20/23 15:34 INR 0.97 (0.8-1.2) 07/20/23 15:34 APTT 28.4 SECONDS (23.9-36.7) 07/20/23 15:34 Sodium 142 mmol/L (136-145) 07/20/23 15:34 Potassium 3.9 mmol/L (3.5-5.1) 07/20/23 15:34 Chloride 103 mmol/L (98-107) 07/20/23 15:34 Carbon Dioxide 27 mmol/L (22-29) 07/20/23 15:34 Anion Gap 15.9 (5-19) 07/20/23 15:34 BUN 15 mg/dL (8-23) 07/20/23 15:34 Creatinine 1.2 mg/dL (0.5-0.9) H 07/20/23 15:34 GFR Calculation Not Reportable 07/20/23 15:34 Glucose 135 mg/dL (65-115) H 07/20/23 15:34 Calculated Osmolality 297 mOsm/kg (285-295) H 07/20/23 15:34 Calcium 10.0 mg/dL (8.5-10.5) 07/20/23 15:34 Total Bilirubin 0.7 mg/dL (0.15-1.2) 07/20/23 15:34 AST 51 U/L (0-32) H 07/20/23 15:34 ALT 34 U/L (0-33) H 07/20/23 15:34 Alkaline Phosphatase 179 U/L (35-105) H 07/20/23 15:34 Total Protein 6.9 g/dL (6.6-8.7) 07/20/23 15:34 Albumin 4.3 g/dL (3.5-5.2) 07/20/23 15:34 Globulin 2.6 g/dL (1.3-4.6) 07/20/23 15:34 Lipase 41 U/L (13-60) 07/20/23 15:34 All radiology interpretation(s) finalized by discharge Discharge Plan Discharge Patient Disposition: Home Clinical Impression: Complaint of melena Condition: Stable Prescriptions: No Action multivitamin Tablet 1 tab PO DAILY aspirin 81 mg capsule 81 mg PO DAILY allopurinol 300 mg tablet 300 mg PO DAILY Qty: 90 3RF Hold Instructions: Doctor's Order alprazolam 0.25 mg tablet 0.25 mg PO BID PRN (Reason: anxiety) Qty: 60 0RF trazodone 50 mg tablet 50 mg PO QPM Qty: 30 3RF atorvastatin 40 mg tablet 40 mg PO DAILY Qty: 90 3RF clopidogrel 75 mg tablet 75 mg PO DAILY Qty: 90 3RF (DME) Auto-titrating CPAP with supplies - 6-16 cm H2O See Rx Instructions .Route .MEDSUPPLY Qty: 1 0RF Rx Instructions: Use at night while sleeping cyanocobalamin (vitamin B-12) [Vitamin B-12] 250 mcg Tablet 250 mcg PO DAILY metoprolol succinate 100 mg tablet extended release 24 hr 100 mg PO BID amlodipine 2.5 mg tablet 2.5 mg PO DAILY levothyroxine 88 mcg tablet 88 mcg PO DAILY pantoprazole 40 mg tablet,delayed release (DR/EC) 40 mg PO DAILY valsartan 80 mg tablet 80 mg PO BID Discharge Orders: Discharge ED (Routine); Ordered 07/20/23 Ordered By: Pancho Sanderson Referrals: Tyron Monzon DO [Physician] - Ish Dumont MD [Primary Care Provider] - Discharge Diet: Advance as tolerated Discharge Activity: Resume usual activity Patient Instructions: Opioid Safety, Pain Management Activity Restrictions/Additional Instructions: Activity Restrictions/Additional Instructions: Thank you for choosing [facility] for your healthcare needs today. Please realize that you were seen in the Emergency Department and that we are providing you with an emergency medical screening exam and this may not be complete and all inclusive of all the testing and or medical work-up that you may need to determine your ailment or severity of your illness. It is very important that you follow-up as instructed with your Primary care provider or Specialist for additional evaluation and to discuss your medical treatment plan. You may return to the Emergency Department should you have concerns or if your condition changes or worsens in any way. 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
--- NOTE | 2023-07-20 15:21 | CTR_ITS ---
PROCEDURE INFORMATION: Exam: CT Abdomen And Pelvis With Contrast Exam date and time: 07/20/2023 5:17 PM Age: 83 years old Clinical indication: Other: Black stool; Additional info: Abdominal pain, black tarry stool x 1 week, newly in plavix TECHNIQUE: Imaging protocol: Computed tomography of the abdomen and pelvis with contrast. Radiation optimization: All CT scans at this facility use at least one of these dose optimization techniques: automated exposure control; mA and/or kV adjustment per patient size (includes targeted exams where dose is matched to clinical indication); or iterative reconstruction. Contrast material: OMNI 350; Contrast volume: 100 ml; Contrast route: INTRAVENOUS (IV); REPORTING DATA: Count of CT and Cardiac NM exams in prior 12 months: This patient has received 4 known CTs and 0 known cardiac nuclear medicine studies in the 12 months prior to the current study. COMPARISON: CT chest abdpel w/*[id number] 04/13/2023 9:31 PM RADIATION DOSE METRICS: Total DLP (mGy-cm): 664.9 FINDINGS: Heart: Dense mitral annulus calcifications. Diaphragm: Large hiatal hernia. Liver: Focal fatty infiltration and calcified granuloma in the left liver lobe. No suspicious nodule. Gallbladder and bile ducts: Normal. No calcified stones. No ductal dilation. Pancreas: Normal. No ductal dilation. Spleen: Calcified granulomas in the spleen. Adrenal glands: Normal. No mass. Kidneys and ureters: Normal. No hydronephrosis. Stomach and bowel: Diverticulosis of the colon. No diverticulitis. The stomach and small bowel are unremarkable. No obstruction. Appendix: The appendix is not visualized. No secondary signs of appendicitis. Intraperitoneal space: 1.5 cm oval peritoneal density along the posterior right diaphragm. Vasculature: Arterial calcifications. No aneurysm. Lymph nodes: Unremarkable. No enlarged lymph nodes. Urinary bladder: Unremarkable as visualized. Reproductive: The uterus and ovaries are absent. Bones/joints: Degenerative changes of the spine. No fracture. Soft tissues: Calcified injection granuloma in the right buttock. CT/CT abdomen pelvis w con* [id number] IMPRESSION: 1. No acute findings. 2. Diverticulosis of the colon without diverticulitis. 3. 1.5 cm oval density along the posterior right diaphragm. This could represent infolding of the diaphragm. A reactive lymph node is not excluded.
[2023-07-20 15:45] LABS: Basophils # 0.1 10^3/uL (0.0-0.1); Basophils % 0.9 %; Eosinophils # 0.3 10^3/uL (0.0-0.8); Eosinophils % 4.3 %; Hematocrit 36.5 % (36-47); Mean Corpuscular HGB Conc 31.8 g/dL (30-55); Mean Corpuscular Hemoglobin 30.4 pg (27-33); Mean Corpuscular Volume 95.8 fl (85-98); Mean Platelet Volume 9.8 fL (7.4-10.4); Monocytes # 0.5 10^3/uL (0.2-0.9); Monocytes % 7.2 %; Neutrophils # 4.48 10^3/uL (1.8-7.7); Neutrophils % 60.2 %; Nucleated Red Blood Cells % 0 %; Platelet Count 217 10^3/cmm (157-399); Red Blood Count 3.81 10^6/uL (3.85-5.65); White Blood Count 7.45 10^3/uL (3.29-11.43)
[2023-07-20 15:56] LABS: INR 0.97 (0.8-1.2); Partial Thromboplastin Time 28.4 SECONDS (23.9-36.7)
[2023-07-20 16:04] LABS: Alanine Aminotransferase 34 U/L (0-33); Albumin Level 4.3 g/dL (3.5-5.2); Alkaline Phosphatase 179 U/L (35-105); Anion Gap 15.9 (5-19); Aspartate Amino Transferase 51 U/L (0-32); Blood Urea Nitrogen 15 mg/dL (8-23); Carbon Dioxide 27 mmol/L (22-29); Chloride 103 mmol/L (98-107); Globulin 2.6 g/dL (1.3-4.6); Glucose 135 mg/dL (65-115); Lipase 41 U/L (13-60); Osmolality Calculated 297 mOsm/kg (285-295); Potassium 3.9 mmol/L (3.5-5.1); Sodium 142 mmol/L (136-145); Total Bilirubin 0.7 mg/dL (0.15-1.2); Total Protein 6.9 g/dL (6.6-8.7)
[2023-07-20] MEDS: cloNIDine 0.1 mg Tablet PO (16:18)
[2023-07-20] MEDS: iohexol 350 mg/mL 500 mL Btl (per mL) IV (16:24)
[2023-07-20] MEDS: hyDRALAzine 20 mg/mL INJ 1 mL IVP (19:19)
== END 2023-07-20 19:33 | disposition home or self-care (01) ==
PROVIDERS: Emergency Provider Internal Medicine; PCP Family Medicine
DX: K57.31 Diverticulosis of large intestine without perforation or abscess with bleeding (principal); Z79.82 Long term (current) use of aspirin; Z79.02 Long term (current) use of antithrombotics/antiplatelets; I25.10 Atherosclerotic heart disease of native coronary artery without angina pectoris; E11.9 Type 2 diabetes mellitus without complications; E78.5 Hyperlipidemia, unspecified; I10 Essential (primary) hypertension; Z95.1 Presence of aortocoronary bypass graft
CPT/HCPCS: 74177; 80053; 83690; 85025; 85610; 85730; 96374; 99285; J0360; Q9967

== ENCOUNTER → 2023-07-27 09:18 | Outpatient (BNVA) | payer MEDICARE, OTHER, SELFPAY | PROVIDERS: PCP Family Medicine; Visit Provider Family Medicine | DX: K92.1 Melena (principal); E11.9 Type 2 diabetes mellitus without complications; Z51.81 Encounter for therapeutic drug level monitoring | CPT/HCPCS: 80053; 83010; 85025 ==

== ENCOUNTER → 2023-07-28 11:30 | Outpatient (BNVA) | payer MEDICARE, OTHER, SELFPAY | PROVIDERS: PCP Family Medicine; Referring Provider Family Medicine; Visit Provider Surgery | DX: K92.1 Melena (principal) | CPT/HCPCS: 99204 ==

== ENCOUNTER 2023-07-31 11:19 | Outpatient (CLI) | payer MEDICARE, OTHER, SELFPAY | END 2023-07-31 11:20 | disposition home or self-care (01) | LOC: LAB 11:19 | PROVIDERS: PCP Family Medicine; Visit Provider Surgery | DX: K92.1 Melena (principal) | CPT/HCPCS: 82274 ==

== ENCOUNTER 2023-08-03 07:25 | Day surgery (SDC) | payer MEDICARE, OTHER, SELFPAY ==
[2023-08-03 08:03] VITALS: BP 174/94; PULSE 65; RESP 18; TEMP 36.4; O2SAT 97; BMI 34.0
--- NOTE | 2023-08-03 08:09 | W.PM.OPSUD ---
Surgery/Procedure H&P Update DATE OF PROCEDURE: August 03, 2023 DATE H&P PERFORMED: 07/28/23 H&P UPDATE INFORMATION: I have reviewed H&P completed within last 30 days, I have examined patient prior to procedure, No changes to prior documentation and H&P is in [facility] [place] date indicated PLANNED PROCEDURE: Operation Date: 08/03/23 08:35 Proposed Procedures p [id number] egd K92.1(Not Applicable) - Ubaldo Jo MD
[2023-08-03] MEDS: sodium chloride 0.9% 1,000 ML 30 ML IV (08:11)
--- NOTE | 2023-08-03 08:24 | ANES.PREANE2 ---
Pre-Anesthetic Assessment Height/Weight: Height 1.42 m Weight 68.946 kg Temp Pulse Resp BP Pulse Ox O2 Del Method 97.5 F L 65 18 174/94 97 Room Air 08/03/23 08:03 08/03/23 08:03 08/03/23 08:03 08/03/23 08:03 08/03/23 08:03 08/03/23 08:03 Preop Diagnosis: melena Operation Date: 08/03/23 08:35 Proposed Procedures p [id number] egd K92.1(Not Applicable) - Ubaldo Jo MD Familial anesthetic complications: none Was Beta Moses taken within 24 hours: Yes Was Clonidine taken within 24 hours: N/A Last intake: Intake Last Liquid Date 08/02/23 Last Liquid Time 20:30 Last Solid Date 08/02/23 Last Solid Time 20:30 Social No alcohol and No tobacco Exam alert and oriented x 3 Airway Submandibular: within normal limits Mallampati: Class II Dentition: full History/ROS No significant history except as noted Pulmonary None reported CV/HEM Coronary Artery Disease, Congestive Heart Failure and Hypertension mild aortic stenosis, elevated PA pressure None reported Hepatic None reported GI Gastroesophageal Reflux Disease melena Metabolic Hyperlipidemia and Thyroid Disease Musc/skel Lower Back Pain Neuropsych Anxiety and Cerebrovascular Accident (pt states she had a stroke in march 2023 and has no residual other than some mild memory loss. ) Anesthetic Plan ASA status: 4 Anesthesia: Anesthesia Evaluation and MAC Risk of > 500 ml blood loss (7ml/kg in children): No Medications/Allergies Home Medications Medication Instructions Recorded Confirmed Last Taken Type cyanocobalamin (vitamin B-12) 250 250 mcg PO DAILY 02/17/20 08/03/23 08/02/23 History mcg tablet (Vitamin B-12) multivitamin 1 tab PO DAILY 01/26/22 08/03/23 08/02/23 History allopurinol 300 mg tablet 300 mg PO DAILY #90 tabs 02/14/23 08/03/23 08/02/23 Rx amlodipine 2.5 mg tablet 2.5 mg PO DAILY 04/13/23 08/03/23 08/02/23 History levothyroxine 88 mcg tablet 88 mcg PO DAILY 04/13/23 08/03/23 08/02/23 History metoprolol succinate 100 mg 100 mg PO BID 04/13/23 08/03/2308/03/23 07:00 History tablet,extended release 24 hr pantoprazole 40 mg tablet,delayed 40 mg PO DAILY 04/13/23 08/03/23 08/02/23 History release valsartan 80 mg tablet 80 mg PO BID 04/25/23 08/03/23 08/02/23 History trazodone 50 mg tablet 50 mg PO QPM #30 tabs 04/28/23 08/03/23 08/02/23 Rx atorvastatin 40 mg tablet 40 mg PO DAILY #90 tabs 05/12/23 08/03/23 08/02/23 Rx clopidogrel 75 mg tablet 75 mg PO DAILY #90 tabs 05/12/23 08/03/23 07/29/23 Rx Auto-titrating CPAP with supplies #1 ea 05/15/23 08/03/23 08/01/23 Rx - 6-16 cm H2O alprazolam 0.25 mg tablet 0.25 mg PO BID PRN anxiety #60 tabs 07/24/23 08/03/23 08/02/23 Rx Allergies Allergy/AdvReac Type Severity Reaction Status Date / Time diltiazem Allergy Unknown Unknown Verified 08/01/23 10:32 isoniazid Allergy Unknown Unknown Verified 08/01/23 10:32 heart med Allergy Unknown Uncoded 08/01/23 10:32 Current Medications Generic Name Dose Route Start Last Admin Trade Name Freq PRN Reason Stop Dose Admin Sodium Chloride 1,000 mls @ 30 mls/hr 08/03/23 08:00 08/03/23 08:11 Sodium Chloride 0.9% IV 30 mls/hr .Q24H SO Administration PFSH Anesthesia Medical History Cerumen impaction Bilateral thumb pain High pulmonary arterial pressure Exposure to influenza Conjunctivitis Mild aortic stenosis Left bundle branch block Sleep apnea Congestive heart failure DM type 2 (diabetes mellitus, type 2) Coronary artery disease Hypothyroidism GERD (gastroesophageal reflux disease) Hyperlipidemia Hypertension Anxiety Gout Surgical History (Updated 07/28/23 @ 11:41 by JEANMARIE Logan) Hx of hysterectomy With BLO Hx of tubal ligation History of appendectomy Hx of CABG x 3 vessels Social History Smoking and tobacco/nicotine status: never used tobacco/nicotine Alcohol intake: never Substance/Drug Use: never Additional social history: Goes to [facility] in Marital status: / Marital status details: 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
[2023-08-03 08:55] VITALS: BP 122/85; PULSE 53; RESP 12; TEMP 36.4; O2SAT 96
[2023-08-03 09:10] VITALS: BP 124/57; PULSE 51; RESP 16; O2SAT 98
--- NOTE | 2023-08-03 15:44 | ANE.PACU2 ---
Inpatient post-anesthesia follow up: Airway intact: Yes Vital signs: Temperature 97.6 F Pulse Rate 51 Respiratory Rate 16 Blood Pressure 124/57 Pulse Oximetry 98 Oxygen Delivery Me thod Room Air Oxygen Flow Rate 3 Fraction of Inspir ed Oxygen Hydration adequate: Yes Nausea and vomiting: No Pain level: 2 Mental status: Baseline
== END 2023-08-03 09:45 | disposition home or self-care (01) ==
PROVIDERS: PCP Family Medicine; Visit Provider Surgery
PROC: 0DJ08ZZ Inspection of Upper Intestinal Tract, Via Natural or Artificial Opening Endoscopic (ICD-10-PCS; CPT 43235; principal; 2023-08-03 08:35)
DX: K92.1 Melena (principal); K44.9 Diaphragmatic hernia without obstruction or gangrene; K29.80 Duodenitis without bleeding; K29.70 Gastritis, unspecified, without bleeding; I25.10 Atherosclerotic heart disease of native coronary artery without angina pectoris; I11.0 Hypertensive heart disease with heart failure; I50.9 Heart failure, unspecified; K21.9 Gastro-esophageal reflux disease without esophagitis; E78.5 Hyperlipidemia, unspecified; Z86.73 Personal history of transient ischemic attack (TIA), and cerebral infarction without residual deficits; E11.9 Type 2 diabetes mellitus without complications; E03.9 Hypothyroidism, unspecified
CPT/HCPCS: 43239; 88305; J2704; J7030

== ENCOUNTER → 2023-08-24 15:30 | Outpatient (BNVA) | payer MEDICARE, OTHER, SELFPAY | PROVIDERS: PCP Family Medicine; Visit Provider Surgery | DX: R13.10 Dysphagia, unspecified (principal); Z09 Encounter for follow-up examination after completed treatment for conditions other than malignant neoplasm | CPT/HCPCS: 99213 ==

== ENCOUNTER 2023-09-25 11:00 | Outpatient (CLI) | payer MEDICARE, OTHER, SELFPAY ==
--- NOTE | 2023-09-25 11:00 | FL_ITS ---
WS: [id number] MODIFIED BARIUM SWALLOW TECHNIQUE: Modified barium swallow with speech therapy using multiple consistencies. FLUOROSCOPY TIME: 2min [id number] # of spot films: 1 CLINICAL INFORMATION: Trouble swallowing. COMPARISON: None. FINDINGS: Multiple consistencies utilized. Normal oropharyngeal phase. No evidence of aspiration or penetration . No difficulties with the barium tablet. Small esophageal hiatal hernia visualized. Mild esophageal dysmotility. IMPRESSION: 1. No evidence of aspiration or penetration. 2. Mild distal esophageal dysmotility. 3. No difficulties with the barium tablet. 4. Small esophageal hiatal hernia visualized.
== END 2023-09-25 11:01 | disposition home or self-care (01) ==
LOC: RAD 11:00
PROVIDERS: PCP Family Medicine; Visit Provider Surgery
DX: K22.4 Dyskinesia of esophagus (principal); K44.9 Diaphragmatic hernia without obstruction or gangrene
CPT/HCPCS: 74230; 92611

== ENCOUNTER → 2023-09-26 12:12 | Outpatient (BNVA) | payer MEDICARE, OTHER, SELFPAY | PROVIDERS: PCP Family Medicine; Visit Provider Surgery | DX: Z09 Encounter for follow-up examination after completed treatment for conditions other than malignant neoplasm (principal) | CPT/HCPCS: 99212 ==

== ENCOUNTER → 2023-11-03 10:42 | Outpatient (BNVA) | payer MEDICARE, OTHER, SELFPAY | PROVIDERS: PCP Family Medicine; Visit Provider Internal Medicine Cardiovascular Disease | DX: I11.0 Hypertensive heart disease with heart failure (principal); I50.9 Heart failure, unspecified; E78.5 Hyperlipidemia, unspecified; I25.10 Atherosclerotic heart disease of native coronary artery without angina pectoris; I44.7 Left bundle-branch block, unspecified; I35.0 Nonrheumatic aortic (valve) stenosis; F41.9 Anxiety disorder, unspecified; I27.21 Secondary pulmonary arterial hypertension; E11.9 Type 2 diabetes mellitus without complications; K21.9 Gastro-esophageal reflux disease without esophagitis; Z95.1 Presence of aortocoronary bypass graft | CPT/HCPCS: 99213 ==

== ENCOUNTER → 2023-11-09 11:05 | Outpatient (BNVA) | payer MEDICARE, OTHER, SELFPAY | PROVIDERS: PCP Family Medicine; Visit Provider Family Medicine | DX: Z51.81 Encounter for therapeutic drug level monitoring (principal); E53.8 Deficiency of other specified B group vitamins; E03.9 Hypothyroidism, unspecified; I63.9 Cerebral infarction, unspecified; Z13.220 Encounter for screening for lipoid disorders; E55.9 Vitamin D deficiency, unspecified | CPT/HCPCS: 80053; 80061; 82306; 82607; 84439; 84443; 85025 ==

== ENCOUNTER 2024-04-02 10:57 | Outpatient (CLI) | payer MEDICARE, OTHER, SELFPAY ==
--- NOTE | 2024-04-02 11:04 | MM_ITS ---
WS: [id number] BILATERAL 3D TOMOSYNTHESIS DIGITAL SCREENING MAMMOGRAPHY WITH CAD CLINICAL INFORMATION: SCREENING HISTORY: Screening mammogram. No current complaints. COMPARISON: 2022 TECHNIQUE: Bilateral CC and MLO views. FINDINGS: Scattered fibroglandular densities bilaterally. No suspicious focal mass, asymmetry, calcifications, or architectural distortion. No evidence of malignancy. Vascular calcification. Secretory calcificati ons. Incidental punctate calcifications. Stable lymph node upper outer LEFT breast. MM/[place] [id number] IMPRESSION: BI-RADS: 2-Benign FOLLOW UP: 1 Year Follow-up Recommend return to annual screening mammography.
== END 2024-04-02 10:58 | disposition home or self-care (01) ==
LOC: RAD 10:58
PROVIDERS: PCP Family Medicine; Visit Provider Family Medicine
DX: Z12.31 Encounter for screening mammogram for malignant neoplasm of breast (principal); R92.323 Mammographic fibroglandular density, bilateral breasts; R92.1 Mammographic calcification found on diagnostic imaging of breast
CPT/HCPCS: 77063; 77067

== ENCOUNTER → 2024-07-09 15:21 | Outpatient (BNVA) | payer MEDICARE, OTHER, SELFPAY | PROVIDERS: PCP Family Medicine; Visit Provider Internal Medicine Cardiovascular Disease | DX: I25.10 Atherosclerotic heart disease of native coronary artery without angina pectoris (principal); Z86.73 Personal history of transient ischemic attack (TIA), and cerebral infarction without residual deficits; I10 Essential (primary) hypertension; E78.5 Hyperlipidemia, unspecified; G31.84 Mild cognitive impairment of uncertain or unknown etiology | CPT/HCPCS: 99214 ==

== ENCOUNTER → 2025-01-08 11:58 | Outpatient (BNVA) | payer MEDICARE, OTHER, SELFPAY | PROVIDERS: PCP Family Medicine; Visit Provider Family Medicine | DX: Z13.6 Encounter for screening for cardiovascular disorders (principal); E55.9 Vitamin D deficiency, unspecified; E03.9 Hypothyroidism, unspecified; R73.09 Other abnormal glucose; R19.7 Diarrhea, unspecified; E53.8 Deficiency of other specified B group vitamins | CPT/HCPCS: 80053; 80061; 82306; 82607; 83036; 84439; 84443; 85025 ==